=== PATIENT | female | born 1950 | race Caucasian/White ===

== ENCOUNTER → 2016-10-12 | Outpatient (CLI) | payer BC ==
[2016-10-12 10:18] LABS: Basophils % (A) 1 %; CH 32.3; CHCM 33.7; Eosinophils # (A) 0.2 k/uL (0-0.7); Eosinophils % (A) 3 %; HCT 38.6 % (34.0-46.0); HDW 2.46; HGB 12.6 gm/dL (11.4-16.0); Luc # (Auto) 0.11; Luc % (Auto) 2; Lymphocytes # (A) 1.5 k/uL (1.0-4.8); Lymphocytes % (A) 29 %; MCH 31.4 pg (25.0-35.0); MCHC 32.6 g/dL (31.0-37.0); MCV 96.2 fL (80.0-100.0); Monocytes # (A) 0.2 k/uL (0-1.0); Monocytes % (A) 4 %; Neutrophils # (A) 3.2 k/uL (1.3-7.7); Neutrophils % (A) 61 %; RBC 4.01 m/uL (3.80-5.40); RDW 12.6 % (11.5-15.5); WBC 5.3 k/uL (3.8-10.6); WBC (Perox) 5.54
[2016-10-12 11:36] LABS: ALT 32 U/L (9-52); AST 31 U/L (14-36); Alkaline Phosphatase 75 U/L (38-126); Anion Gap 9 mmol/L; Blood Urea Nitrogen 12 mg/dL (7-17); Calcium 9.1 mg/dL (8.4-10.2); Carbon Dioxide 23 mmol/L (22-30); Chloride 111 mmol/L (98-107); Cholesterol 156 mg/dL (<200); Creatine Kinase 51 U/L (30-135); Glucose 99 mg/dL (74-99); HDL Cholesterol 61 mg/dL (40-60); Magnesium 1.9 mg/dL (1.6-2.3); Non-African American GFR(MDRD) >60 (>60 ml/min/1.73 sqM); Potassium 4.1 mmol/L (3.5-5.1); Sodium 143 mmol/L (137-145); Total Bilirubin 0.6 mg/dL (0.2-1.3); Total Protein 6.4 g/dL (6.3-8.2); Triglycerides 140 mg/dL (<150)
[2016-10-12 12:23] LABS: Vitamin B12 982 pg/mL (239-931)
== END | disposition home or self-care (01) ==
LOC: LABWHC1 09:47
PROVIDERS: ATTEND Family Medicine
DX: E78.5 Hyperlipidemia, unspecified (principal); M54.30 Sciatica, unspecified side; J01.00 Acute maxillary sinusitis, unspecified; J45.991 Cough variant asthma; M79.7 Fibromyalgia; R73.02 Impaired glucose tolerance (oral)
CPT/HCPCS: 36415; 80053; 80061; 82306; 82550; 82607; 83036; 83735; 84439; 84443; 85025

== ENCOUNTER → 2016-10-18 | Outpatient (CLI) | payer BC ==
--- NOTE | 2016-10-18 12:27 | XR ---
EXAMINATION TYPE: XR ankle complete RT DATE OF EXAM: 10/18/2016 12:23 PM COMPARISON: NONE HISTORY: Pain TECHNIQUE: Frontal, lateral and oblique images of the right ankle are obtained. COMPARISON: None. FINDINGS: There is no acute fracture/dislocation evident. The joint spaces appear within normal heck its. The overlying soft tissue appears unremarkable. Large plantar calcaneal spur with small dorsal calcaneal spur identified. IMPRESSION: There is no acute fracture or dislocation seen.
== END | disposition home or self-care (01) ==
LOC: RADXRMAIN 12:06
PROVIDERS: ATTEND Family Medicine
DX: M76.61 Achilles tendinitis, right leg (principal)

== ENCOUNTER → 2016-10-25 | Outpatient (CLI) | payer BC ==
--- NOTE | 2016-10-25 15:06 | BD ---
EXAMINATION TYPE: MG DEXA axial skeleton. DATE OF EXAM: 10/25/2016 7:20 AM COMPARISON: NONE CLINICAL HISTORY: Height: 66.5 IN Weight: 213 LBS FRAX RISK QUESTIONS: Alcohol (3 or more units per day): NO Family History (Parent hip fracture): NO Glucocorticoids (More than 3mos): NO (Ex: prednisone, prednisolone, methylprednisolone, dexamethasone, and hydrocortisone). History of Fracture in Adulthood: YES RT HUMERUS Secondary Osteoporosis: 1. Type 1 Diabetes: NO 2. Hyperthyroidism: NO 3. Menopause before 45: NO 4. Malnutrition: NO 5. Chronic liver disease: NO Rheumatoid Arthritis: NO Current Tobacco Use: NO RISK FACTORS HISTORY OF: Surgery to Spine: YES L-SPINE When: 2009 Other Fractures since Age 52: YES RT HUMERUS When: AGE 62 Family History of Osteoporosis: MOTHER Active: YES Diet low in dairy products/other sources of calcium: YES Postmenopausal woman: AGE 52 Take estrogen and/or progesterone medications: NOT NOW How long: TOOK ESTROGEN FOR 5 YRS AGE 61 MEDICATIONS: Additional Medications: VIT D3, IRON, DONEPEZIL, ALPRAZOLAM, SIMVASTATIN, SERTRALINE, ATENOLOL, CLOPI DOGREL, B12, TIZANIDINE, VENTOLIN INHALER, NASAL ALLERGY SPRAY, MONTELUKAST, DICYCLOMINE, CEFUROXIME, VIBERZI EXAM MEASUREMENTS: Bone mineral densitometry was performed using the [employer] System. PT HAD L-SPINE SURGERY IN 2009. Bone mineral density about the R hip (g/cm2): 0.855 Bone mineral density about the L hip (g/cm2): 0.903 T Score values are as follows: -----R Neck: -1.3 -----L Neck: -1.0 -----R Total: -1.1 -----L Total: -0.6 Bone mineral density has: Decreased -6.4% since study of: 02/12/2014 IMPRESSION: Osteopenia is an interval finding NOTE: T-SCORE=SD OF THE YOUNG ADULT MEAN.
--- NOTE | 2016-10-26 10:31 | MM ---
Reason for exam: screening (asymptomatic). Last mammogram was performed 2 years and 8 months ago. History: Patient is postmenopausal and is nulliparous. Took estrogen for 5 years. Physical Findings: A clinical breast exam by your physician is recommended on an annual basis and results should be correlated with mammographic findings. MG Screening Mammo w CAD Bilateral CC and MLO view(s) were taken. Prior study comparison: February 12, 2014, bilateral MG screening mammo w CAD. January 08, 2013, bilateral digital screening mammo w/CAD. There are scattered fibroglandular densities. Finding: There are typically benign calcifications in both breasts. There is a chronic nodularity in the right breast. No significant changes in finding since February 12, 2014 and January 08, 2013. ASSESSMENT: Benign, BI-RAD 2 RECOMMENDATION: Routine screening mammogram of both breasts in 1 year.
== END | disposition home or self-care (01) ==
LOC: RADMAMWWP 07:17
PROVIDERS: ATTEND Family Medicine
DX: Z12.31 Encounter for screening mammogram for malignant neoplasm of breast (principal); M85.80 Other specified disorders of bone density and structure, unspecified site; Z78.0 Asymptomatic menopausal state
CPT/HCPCS: 77080; G0202

== ENCOUNTER → 2017-02-28 | Outpatient (CLI) | payer BC ==
[2017-02-28 11:36] LABS: Blood Urea Nitrogen 14 mg/dL (7-17); Non-African American GFR(MDRD) >60 (>60 ml/min/1.73 sqM)
--- NOTE | 2017-02-28 16:36 | MR ---
EXAMINATION TYPE: MR lumbar spine wo/w con DATE OF EXAM: 02/28/2017 COMPARISON: 05/06/2014 HISTORY: spinal stenosis CONTRAST: 9.5 mL intravenous Gadavist. TECHNIQUE: Multiplanar, multisequence images of the lumbar spine were acquired. FINDINGS: Cord terminates at the L1 level. L5-S1: Minimal residual disc bulge is present with anterior thecal sac contact. Laminectomy has been performed. No AP spinal canal stenosis present. Facet hypertrophy is present. There is moderate bilat eral foraminal narrowing with some exiting nerve root contact within the foramen. L4-L5: There is a grade 1 spondylolisthesis of L4 anterior and L5. Disc uncovering is present. Endpla te spurring from L5 is present. There is a spinal canal stenosis estimated 0.8 cm. Marked facet hyper trophy is present with some posterior lateral thecal sac compression. There is severe right and moder ate left foraminal stenosis. L3-L4: Broad-based disc bulge has mild anterior thecal sac flattening. Facet hypertrophy is posterior lateral thecal sac compression. No AP spinal canal stenosis present. Mild bilateral foraminal narrow ing is present, left greater than right. L2-L3: Mild disc bulge is present. This also has a focal left paracentral subligamentous disc herniat ion extending superiorly. This has moderate anterior thecal sac compression. No AP spinal canal steno sis. Mild facet hypertrophy is present. L1-L2: Mild disc bulge is present. Left paracentral disc herniation is present. No spinal cord contac t is evident. No AP spinal canal stenosis. Foramina are patent No spinal canal stenosis. No foramin al stenosis. Neural foramen are patent.. T12-L1: No significant disc bulge or disc herniation. No spinal canal stenosis. No foraminal stenos is. Neural foramen are patent.. No abnormal enhancement. IMPRESSION: 1. Spinal canal stenosis L4-5 secondary to disc uncovering with endplate spurring and facet hypertrop hy. 2. Slight anterior spondylolisthesis of L4 anterior and L5 compatible with a grade 1. 3. Multilevel facet hypertrophy causing posterior lateral thecal sac compression discussed above. 4. Left paracentral subligamentous disc herniation L2-L3 and L1-L2.
== END | disposition home or self-care (01) ==
LOC: RADMRIMAIN 10:44
PROVIDERS: ATTEND Family Medicine
DX: M48.06 Spinal stenosis, lumbar region (principal); M51.26 Other intervertebral disc displacement, lumbar region; M43.16 Spondylolisthesis, lumbar region; M48.00 Spinal stenosis, site unspecified
CPT/HCPCS: 82565; 84520; 72158; 36415; A9581

== ENCOUNTER → 2017-04-11 | Outpatient (CLI) | payer BC ==
[2017-04-11 12:56] LABS: Basophils % (A) 1 %; CH 31.7; CHCM 32.9; Eosinophils # (A) 0.3 k/uL (0-0.7); Eosinophils % (A) 4 %; HDW 2.38; HGB 13.5 gm/dL (11.4-16.0); Luc # (Auto) 0.09; Luc % (Auto) 1; Lymphocytes # (A) 2.1 k/uL (1.0-4.8); Lymphocytes % (A) 33 %; MCH 31.2 pg (25.0-35.0); MCHC 32.3 g/dL (31.0-37.0); MCV 96.7 fL (80.0-100.0); Monocytes # (A) 0.4 k/uL (0-1.0); Monocytes % (A) 6 %; Neutrophils # (A) 3.5 k/uL (1.3-7.7); Neutrophils % (A) 54 %; RBC 4.34 m/uL (3.80-5.40); RDW 13.7 % (11.5-15.5); WBC 6.4 k/uL (3.8-10.6); WBC (Perox) 6.68
[2017-04-11 13:19] LABS: ALT 41 U/L (9-52); AST 37 U/L (14-36); Alkaline Phosphatase 85 U/L (38-126); Anion Gap 7 mmol/L; Blood Urea Nitrogen 15 mg/dL (7-17); Calcium 9.4 mg/dL (8.4-10.2); Carbon Dioxide 28 mmol/L (22-30); Chloride 107 mmol/L (98-107); Cholesterol 169 mg/dL (<200); Glucose 92 mg/dL (74-99); HDL Cholesterol 58 mg/dL (40-60); Non-African American GFR(MDRD) >60 (>60 ml/min/1.73 sqM); Potassium 4.2 mmol/L (3.5-5.1); Sodium 142 mmol/L (137-145); Total Bilirubin 0.6 mg/dL (0.2-1.3); Total Protein 6.8 g/dL (6.3-8.2); Uric Acid 5.9 mg/dL (3.7-7.4)
== END | disposition home or self-care (01) ==
LOC: LABWHC1 12:22
PROVIDERS: ATTEND Family Medicine
DX: E55.9 Vitamin D deficiency, unspecified (principal); K58.0 Irritable bowel syndrome with diarrhea; M76.61 Achilles tendinitis, right leg
CPT/HCPCS: 36415; 80053; 80061; 82306; 83036; 84439; 84443; 84550; 85025

== ENCOUNTER → 2017-05-02 | Outpatient (CLI) | payer BC ==
[2017-05-02 08:57] LABS: Blood Urea Nitrogen 16 mg/dL (7-17); Non-African American GFR(MDRD) >60 (>60 ml/min/1.73 sqM)
== END | disposition home or self-care (01) ==
LOC: LABWHC1 08:11
PROVIDERS: ATTEND Family Medicine
DX: S06.0X0S Concussion without loss of consciousness, sequela (principal)
CPT/HCPCS: 36415; 82565; 84520

== ENCOUNTER → 2017-05-04 | Outpatient (CLI) | payer BC | LOC: RADMRIMAIN 06:41 | PROVIDERS: ATTEND Family Medicine | DX: Z53.9 Procedure and treatment not carried out, unspecified reason (principal) ==

== ENCOUNTER → 2017-05-25 | Outpatient (CLI) | payer BC ==
--- NOTE | 2017-05-25 13:26 | MR ---
EXAMINATION TYPE: MR angio head wo con DATE OF EXAM: 05/25/2017 COMPARISON: MRI 05/04/2017 HISTORY: Basilar Tip Aneuryms TECHNIQUE: Utilizing 3-D [id number] intracranial MRA of the [place] was performed. FINDINGS: The vertebrobasilar and carotid systems are patent. There is noticeable fusiform prominence of the b asilar tip measuring 5 mm. The origin of the right posterior cerebral artery originates from the internal circulation and there is a 3 mm nodular prominence at its origin suspicious for an additional small aneurysm. IMPRESSION: 1. 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 2. The right posterior cerebral artery originates from the anterior circulation and there is an area of nodular prominence also suspicious for a 3 mm aneurysm.
== END | disposition home or self-care (01) ==
LOC: RADMRIMAIN 12:45
PROVIDERS: ATTEND Otolaryngology
DX: R93.0 Abnormal findings on diagnostic imaging of skull and head, not elsewhere classified (principal)
CPT/HCPCS: 70544

== ENCOUNTER 2017-08-02 08:43 | Day surgery (SDC) | payer BC ==
[2017-07-31 15:36] VITALS: BMI 34.4
[~2017-08-02 08:43] MED LIST: LACTATED RINGERS 1,000 ML IV SCH
[2017-08-02] MEDS ORDERED: LACTATED RINGERS 1,000 ML IV ONE (09:38)
[2017-08-02] MEDS ORDERED: LIDOCAINE 1% 20 ML VIAL (10MG/ML) FOR IV START INTRADERMA ONE (09:38)
[2017-08-02 09:46] VITALS: TEMP 98
--- NOTE | 2017-08-02 10:26 | P.PCN ---
Date of Procedure: 08/02/17 Preoperative Diagnosis: Lumbar spondylosis without myelopathy Postoperative Diagnosis: Lumbar spondylosis without myelopathy Procedure(s) Performed: Lumbar bilateral medial branch block for the medial branches L2, L3, L4, and L5 dorsal ramus Anesthesia: MAC (Lidocaine 1% with IV moderate sedation with Versed) Surgeon: Joy Vaughan Pathology: none sent Condition: stable Disposition: PACU Description of Procedure: the patient was seen and identified in the preop holding area , risks and benefits and possible complications of the procedure and alternatives were discussed with the patient, and the patient agreed to proceed with the procedure and signed the consent. IV was started and vital signs monitored during the procedure and fluoroscopy was used to maximize the benefit and accuracy of the needle placement, sedation was given to decrease patient anxiety, patient was taken to the procedure room and placed in prone position vital signs monitored. The patient was brought into the procedure room and placed in prone position. Skin was prepped with Chloraprep and draped in a sterile manner. Lidocaine 1 % was used to numb the skin up at the target points that were chosen as follows : at the L5-S1 level which corresponds to the dorsal ramus of L5 the target points were at the superior medial aspect of the sacral ala on each side of the spine on the AP view of fluoroscopy, and for theL2, L3 and L4 medial branches the target points were the connection between the transverse process and the superior to go process of L3, L4 and L5 respectively on the oblique views of fluoroscopy. I used 22-gauge 3-1/2 inch Quincke spinal needles for this procedure and after contacting bone at the target points mentioned above I injected 1 mL of a mixture of Kenalog 40 mg +5 MLS of Marcaine 0.5% PF . Patient tolerated procedure well. At the end of the procedure the needles removed and a bandage applied after the skin was cleaned the cleaning solution. patient was then taken to the recovery room in stable condition and monitored in the recovery room for 20-30 minutes and discharged home in stable condition after discharge criteria met .
[2017-08-02] MEDS ORDERED: IV FLUID CONTINUATION 1,000 ML IV ONE ×2 (10:40)
[2017-08-02 11:00] VITALS: BP 126/72; PULSE 57; RESP 18
--- NOTE | 2017-08-02 11:02 | FL ---
EXAMINATION TYPE: FL guided pain mgmt statistic DATE OF EXAM: 08/02/2017 COMPARISON: NONE HISTORY: Back pain TECHNIQUE: Fluoroscopy. FINDINGS/IMPRESSION: Fluoroscopic guidance was provided during procedure performed by Dr. Vaughan. A total of 9 seconds of fluoroscopic time was utilized during the procedure and 2 spot images was acq uired demonstrating localization at multiple lumbar vertebral levels.
== END 2017-08-02 11:09 | disposition home or self-care (01) ==
LOC: ORPAIN 08:43
PROVIDERS: ATTEND Anesthesiology
DX: G89.4 Chronic pain syndrome (principal); M47.816 Spondylosis without myelopathy or radiculopathy, lumbar region; M48.061 Spinal stenosis, lumbar region without neurogenic claudication; M99.53 Intervertebral disc stenosis of neural canal of lumbar region; M96.1 Postlaminectomy syndrome, not elsewhere classified; K58.0 Irritable bowel syndrome with diarrhea; E78.5 Hyperlipidemia, unspecified; Z95.5 Presence of coronary angioplasty implant and graft; Q24.8 Other specified congenital malformations of heart; F32.9 Major depressive disorder, single episode, unspecified; Z79.899 Other long term (current) drug therapy; Z79.02 Long term (current) use of antithrombotics/antiplatelets; Z88.6 Allergy status to analgesic agent; Z91.041 Radiographic dye allergy status; Z88.8 Allergy status to other drugs, medicaments and biological substances; Z91.09 Other allergy status, other than to drugs and biological substances
CPT/HCPCS: 99152

== ENCOUNTER 2017-08-21 11:46 | Day surgery (SDC) | payer BC ==
[2017-08-11 15:52] VITALS: BMI 34.4
[~2017-08-21 11:46] MED LIST changes: -LACTATED RINGERS 1,000 ML IV SCH; +SODIUM CHLORIDE 0.9% 1,000 ML IV SCH
[2017-08-21 12:47] VITALS: BP 136/68; PULSE 61; RESP 16; TEMP 98.1
[2017-08-21 13:30] LABS: Appearance,Urine Clear (Clear); Bacteria,Urine Moderate /hpf; Bilirubin,Urine Negative (Negative); Blood,Urine Trace (Negative); Color,Urine Yellow; Glucose,Urine (UA) Negative (Negative); Ketones,Urine Negative (Negative); Leukocyte Esterase,Urine Large (Negative); Mucus,Urine Rare /hpf; Nitrite,Urine Positive (Negative); Protein,Urine Trace (Negative); RBC,Urine 3 /hpf (0-5); Specific Gravity,Urine 1.013 (1.001-1.035); Squamous Epithelial Cell,Urine <1 /hpf (0-4); Urobilinogen,Urine <2.0 mg/dL (<2.0); WBC,Urine 54 /hpf (0-5)
[2017-08-21 13:35] LABS: ALT 29 U/L (9-52); AST 28 U/L (14-36); Albumin 4.1 g/dL (3.5-5.0); Alkaline Phosphatase 82 U/L (38-126); Anion Gap 11 mmol/L; Blood Urea Nitrogen 13 mg/dL (7-17); Calcium 9.3 mg/dL (8.4-10.2); Carbon Dioxide 25 mmol/L (22-30); Chloride 106 mmol/L (98-107); Glucose 85 mg/dL (74-99); Potassium 4.1 mmol/L (3.5-5.1); Sodium 142 mmol/L (137-145); Total Bilirubin 0.4 mg/dL (0.2-1.3); Total Protein 6.7 g/dL (6.3-8.2)
[2017-08-21 13:42] LABS: Basophils % (A) 0 %; Eosinophils # (A) 0.2 k/uL (0-0.7); Eosinophils % (A) 3 %; HCT 40.7 % (34.0-46.0); HGB 13.8 gm/dL (11.4-16.0); Lymphocytes # (A) 2.5 k/uL (1.0-4.8); Lymphocytes % (A) 29 %; MCH 32.1 pg (25.0-35.0); MCHC 33.9 g/dL (31.0-37.0); MCV 94.4 fL (80.0-100.0); Mean Platelet Volume 7.2; Monocytes # (A) 0.5 k/uL (0-1.0); Monocytes % (A) 5 %; Neutrophils # (A) 5.4 k/uL (1.3-7.7); Neutrophils % (A) 62 %; Platelet Count 236 k/uL (150-450); RBC 4.31 m/uL (3.80-5.40); RDW 12.5 % (11.5-15.5); WBC 8.8 k/uL (3.8-10.6)
[2017-08-21 13:51] LABS: T4, Free (Free Thyroxine) 1.63 ng/dL (0.78-2.19)
--- NOTE | 2017-08-21 16:49 | P.PCN ---
Preoperative Diagnosis: Twelve-lead ECG Sinus mechanism normal OK narrow QRS early repolarization abnormality in the inferior high lateral leads QT interval 460 ms Tilt table test Baseline blood pressure 114/58 mmHg Baseline heart rate 68 beats a minute Patient was tilted upright at an angle of 70 per protocol there was no sputum change in her heart and blood pressure. No syncope was noted No evidence for neurocardiogenic syncope or dysautonomia Impression No evidence for neurocardiogenic syncope or dysautonomia
[2017-08-21 20:43] LABS: Vitamin D 25 Hydroxy 28.1 ng/mL (30.0-100.0)
[2017-08-21 21:18] LABS: Parathyroid Hormone Intact 62.3 pg/mL (14.0-72.0)
[2017-08-21 21:59] LABS: Hemoglobin A1C 4.9 % (4.0-6.0)
== END 2017-08-21 14:50 | disposition home or self-care (01) ==
LOC: CATHEP 11:46
PROVIDERS: ATTEND Internal Medicine Clinical Cardiac Electrophysiology
DX: R55 Syncope and collapse (principal)
CPT/HCPCS: 80053; 81001; 82306; 82607; 83036; 83735; 83970; 84439; 84443; 84550; 85025; 87077; 87086; 87186; 93005; 93660

== ENCOUNTER 2017-09-04 09:09 | Day surgery (SDC) | payer BC ==
[2017-08-30 11:47] VITALS: BMI 33.3
[~2017-09-04 09:09] MED LIST changes: +LACTATED RINGERS 1,000 ML IV SCH; -SODIUM CHLORIDE 0.9% 1,000 ML IV SCH
[2017-09-04 10:21] VITALS: TEMP 98.1
[2017-09-04] MEDS ORDERED: LIDOCAINE 1% 20 ML VIAL (10MG/ML) FOR IV START INTRADERMA ONE (10:35)
--- NOTE | 2017-09-04 11:21 | P.PCN ---
Date of Procedure: 09/04/17 Procedure(s) Performed: PREOPERATIVE DIAGNOSIS : 1- Lumbar spondylosis with Facet Arthropathy without myelopathy . 2- Lumber postlaminectomy pain syndrome. 3-lumbar spinal stenosis POSTOPERATIVE DIAGNOSIS: same as preoperative diagnosis PROCEDURE: Diagnostic bilateral L3 -4 , L4 -5 , and L5-S1 medial branch block under fluoroscopy ANESTHESIA: Local with 1% lidocaine 6 ml , moderate sedation with intravenous Versed 4 mg . EBL: Minimal COMPLICATION: None. IV FLUIDS: 100 mL of normal saline. PROCEDURE INDICATION: Chronic low back pain secondary to Facet arthropathy unresponsive to conservative treatment. PROCEDURE DESCRIPTION: the patient was seen and identified in the preop holding area , risks and benefits and possible complications of the procedure and alternative were discussed with the patient, and the patient agreed to proceed with the procedure and signed the consent IV was started and vital signs monitored during the procedure and fluoroscopy was used to maximize the benefit and accuracy of the needle placement, and sedation was given to decrease patient anxiety, patient was taken to the procedure room and placed in prone position vital signs monitored in the back prepped with chlorhexidine X3 then under strict sterile technique using a right oblique fluoroscopy ,the junction of the transverse process and the superior articulating process of the right L3- 4 , L4- 5, and L5-S1 vertebra which corresponding to the fluoroscopy image of the eye of the Real dog on the block side for the medial branches and subsequently , after local infiltration of skin and subcu tissuies with lidocaine 1% one mL at each level ,then 22- gauge Quincke-type needles , 3 needle was used , each one of them placed at the junction of the base of the transverse process and the superior articular process at the appropriate level, and the needle was advanced until the periosteum contacted, needle placement confirmed with AP oblique and lateral view and after appropriate needle placement confirmed, and after negative aspiration for heme and CSF and there was no paresthesia 1-1/2 mL of Marcaine 0.5% used , then half mL injected at each level after negative aspiration the needle subsequently removed and the same procedure repeated for the left side at left side at L3-4, L4- 5 and L5-S1 levels. At the end of the procedure and the needles removed and a bandage applied after the skin was cleaned the cleaning solution patient taken to recovery room in stable condition and monitors in the recovery room for 20-30 minutes and discharged home in stable condition after discharge criteria met and patient will follow up with the pain clinic in 2-4 weeks no steroid was used for the procedure.
[2017-09-04] MEDS ORDERED: IV FLUID CONTINUATION 600 ML IV ONE (11:30)
--- NOTE | 2017-09-04 11:46 | FL ---
EXAMINATION TYPE: FL guided pain mgmt statistic DATE OF EXAM: 09/04/2017 COMPARISON: NONE HISTORY: Back pain TECHNIQUE: Fluoroscopy. FINDINGS/IMPRESSION: Fluoroscopic guidance was provided during procedure performed by Dr. Bermeo. A total of 12 seconds of fluoroscopic time was utilized during the procedure and 4 spot images was a cquired demonstrating localization at multiple lumbar vertebral levels.
[2017-09-04 11:53] VITALS: RESP 18
[2017-09-04 12:09] VITALS: BP 109/66; PULSE 61
== END 2017-09-04 12:34 | disposition home or self-care (01) ==
LOC: ORPAIN 09:09
PROVIDERS: ATTEND Specialist
DX: G89.29 Other chronic pain (principal); M47.816 Spondylosis without myelopathy or radiculopathy, lumbar region; M96.1 Postlaminectomy syndrome, not elsewhere classified; M48.061 Spinal stenosis, lumbar region without neurogenic claudication; Z79.02 Long term (current) use of antithrombotics/antiplatelets; I25.10 Atherosclerotic heart disease of native coronary artery without angina pectoris; Z88.6 Allergy status to analgesic agent; Z91.048 Other nonmedicinal substance allergy status; Z88.5 Allergy status to narcotic agent; Z88.8 Allergy status to other drugs, medicaments and biological substances; Z91.041 Radiographic dye allergy status
CPT/HCPCS: 64493; 64494; 64495; J2250; 99152

== ENCOUNTER → 2017-10-11 | Outpatient (CLI) | payer BC ==
[2017-10-11 15:02] VITALS: BP 128/69; PULSE 64; RESP 18
--- NOTE | 2017-10-11 15:58 | P.PAINPG ---
Subjective Progress Note Date: 10/11/17 This is follow-up visit for this patient with a history of severe and chronic low back pain secondary to , lumbar spondylosis with facet arthropathy, We have done interventional pain procedures diagnostic medial branch block lumbar area on 2 different occasions She is here today to discuss the results of the diagnostic medial branch block, patient reported that her pain before the first block was 6/10 decreased to 0/10 after the block And the pain relief lasted for a few weeks, and after the second block the pain dropped from 6/10-0/10 for a few days Patient denies any motor or sensory deficit , patient denies any fever or night sweats, denies any change in the bowel movements or urination Physical Examinations : 1-Constitutiona : Cooperative , not in acute distress . 2-HEENT : nech ; supple , no Lymphadenopathy , no Thyromegaly , normal thyroid size . eyes : no ptosis , no icterus, no photophobia . ENT : normal of hearing , normal oropharynx , no Thrush . 3- Respiratory : Chest clear to auscultations Bilaterally , no wheezing , no Rhonchi . 4- Cardiovascular : regular rate and rhythem , S1 , S2 , no S3 , no S4. 5- Gastrointestinal : abdomen soft no tenderness , bowel sounds positive all four quadrents , no organomegally . 6- Genitourinary : Defferred . 7- neurologic : Cranial nerve II to XII intact , no focal neurological deffecit . 8-psychatric : alert , oriented X 3 , appropriate affect , intact judgment and insight . 9-Lymphatic : no Lymphadenopathy . 10- musculoskeltal : exams of the Lumber spine =motor strength lower extremities ,thigh and legs .5/5 Positive facet loading test lumbar area bilaterally Severe tenderness over the sacroiliac joint on the right side Assessment and plan = Chronic low back pain , lumbar spondylosis with facet arthropathy without myelopathy , right sacroiliitis Patient had a good result after the diagnostic medial branch block 2 , she will be good candidate to have radiofrequency ablation of the medial branch lumbar area She will be scheduled to have the right side first L3-4/L4 5/L5-S1 Objective - Vital Signs Vital signs: Vital Signs Temp Pulse 64 10/11/17 14:55 Resp 18 10/11/17 14:55 BP 128/69 10/11/17 14:55 Pulse Ox 98 10/11/17 14:55 Intake & Output 10/10/17 10/11/17 10/11/17 18:59 06:59 18:59 Weight 97.522 kg PQRS Measure Charge Sheet Measure #130: Documentation of Current Meds in Medical Chart: Patient's medications documented in chart Measure #226: Tobacco Use: Screen & Cessation Intervention: Pt not a tobacco user Measure #111: Pneumonia Vaccination: Pneumococcal vaccine NOT administered or previously given Measure #47: Advance Care Plan: Advance care planning discussed & documented, pt chose/unable to give Measure #412: Opioid Treatment Agreement: No documentation of signed opioid treatment agreement Measure #408: Opioid Therapy Follow-up Evaluation: Patient had NO f/u eval minimum every 3 months during opioid therapy Measure #317: Preventitive Care & Scrn High Bld Press & F/U: Normal blood pressure, f/u not required Measure #128: Body Mass Index (BMI) Screening & Follow-up: BMI documented ABOVE normal parameters - f/u documented Measure #131: Pain Assessment & Follow-up: Pain positive & plan documented Measure #431: Unhealthy Alcohol Use Preventative Care & Scrn: Patient not identified as an unhealthy alcohol user PQRS Narrative: Smoking Status Never smoker Do You Want the Pneumonia No Vaccine AT THIS TIME? Blood Pressure 128/69 Pain Intensity [Lower Back] 5 Hx Alcohol Use (MH) No Home Medications: Ambulatory Orders Artificial Tears-Hypromellose [Genteal Eye Drops] 1 drop BOTH EYES BID PRN 11/07 Atenolol 25 mg PO QAM 11/07/14 Butalb/Acetaminophen/Caffeine [Fioricet 50-325-40] 1 - 2 tab PO Q4H PRN Clopidogrel [Plavix] 75 mg PO HS 11/07/14 Donepezil HCl [Aricept ODT] 10 mg PO BID 11/07/14 Simvastatin [Zocor] 20 mg PO HS 11/07/14 EPINEPHrine (Auto Inject) [Epipen] 0.3 mg IM ONCE PRN 01/25/16 Sertraline HCl [Zoloft] 75 mg PO HS 01/25/16 tiZANidine [Zanaflex] 2 mg PO DAILY 01/25/16 Cyanocobalamin [Vitamin B-12] 500 mcg PO DAILY 02/09/16 Albuterol Sulfate [Proventil Hfa] 90 mcg INHALATION Q4-6H PRN 07/05/17 Ferrous Sulfate [Iron] 325 mg PO DAILY 07/05/17 Amitriptyline HCl [Elavil] 75 mg PO HS 07/31/17 Glycopyrrolate/Formoterol Fum [Bevespi Aerosphere Inhaler] 2 puff INHALATION BID 08/30/17 tiZANidine [Zanaflex] 4 mg PO HS 08/30/17 Nitroglycerin Sl Tabs [Nitrostat] 0.4 mg SUBLINGUAL Q5M PRN 09/04/17 Controlled Substance Measures - Controlled Substance Measures Is patient prescribed a controlled substance at discharge?: No If prescribed controlled substance>3 days was MAPS reviewed?: No When asked, does pt state using other controlled substances?: No
== END | disposition home or self-care (01) ==
LOC: PNWHC3 14:23
PROVIDERS: ATTEND Specialist
DX: G89.29 Other chronic pain (principal); M54.5 Low back pain; M47.816 Spondylosis without myelopathy or radiculopathy, lumbar region; M46.96 Unspecified inflammatory spondylopathy, lumbar region; M46.1 Sacroiliitis, not elsewhere classified
CPT/HCPCS: 99211

== ENCOUNTER 2017-10-24 07:02 | Day surgery (SDC) | payer BC ==
[2017-10-23 09:06] VITALS: BMI 32.8
[2017-10-24 08:28] VITALS: TEMP 98.6
--- NOTE | 2017-10-24 09:36 | P.PCN ---
Date of Procedure: 10/24/17 Procedure(s) Performed: OPERATION: Radiofrequency ablation of the medial branch lumbar area at right side L3-4, L4-5 and L5-S1 levels under fluoroscopic guidance. PREOPERATIVE DIAGNOSES: 1-Lumbar spondylosis with facet arthropathy without myelopathy. 2-right sacroiliitis POSTOPERATIVE DIAGNOSES: Same as pre op Diagnoses COMPLICATIONS: None. ANESTHESIA: Moderate sedation with Versed 2 mg with local infiltration lidocaine 1% 6 mL CONDITION: Stable. FLUOROSCOPY TIME: [] seconds. INDICATION FOR THE PROCEDURE: This is 66-year-old [female ] with a history of low back pain. Patient diagnosed with lumbar spondylosis For this reason, patient was a good candidate for radiofrequency ablation of the medial branch. Procedure, risks and benefits discussed with the patient who agreed with proceeding. Patient taken to the operating room, placed in prone position. All standard monitors applied to the patient. Then after induction of anesthesia, back prepped with Betadine 3 times. Then under fluoroscopic guidance we used 1% lidocaine 3 mL for skin and subcutaneous tissue infiltrations, approximately 2 mL at each level. Then after that, 18-gauge radiofrequency active-tip needles, 4 needles used, each one of them placed at the junction of the base of the transverse process and the superior articulating process of the right side L3-4 , L4-5 and L5-S1 levels. Needle placement confirmed with AP and oblique and lateral views. Then after appropriate needle placement confirmed, we checked for the motor stimulation at 2.5 v, which was positive for localized contractions in the lumbar area and there were no contractions in the lower extremities. Then after that, we checked for the sensory stimulation, which was positive at all levels at less than 0.5 v. Then after that, the radiofrequency done at 80 degrees Centigrade for 90 seconds at each level. Then before the needles taken out, 0.5% Marcaine 6 mL and 40 mg of Kenalog mixed together and 1 mL injected at each level after negative aspiration. Patient tolerated the procedure well without any complication and will follow up with the pain clinic in few weeks.
[2017-10-24] MEDS ORDERED: IV FLUID CONTINUATION 475 ML IV ONE (09:39)
--- NOTE | 2017-10-24 09:52 | FL ---
Fluoroscopy HISTORY: Pain 7 seconds fluoroscopy time supplied to the referring clinician. 3 intraoperative C-arm images docume nt the procedure. See dictated report from anesthesia.
[2017-10-24 10:34] VITALS: BP 118/68; PULSE 56; RESP 18
== END 2017-10-24 10:35 | disposition home or self-care (01) ==
LOC: ORPAIN 07:02
PROVIDERS: ATTEND Specialist
DX: M47.816 Spondylosis without myelopathy or radiculopathy, lumbar region (principal); M46.1 Sacroiliitis, not elsewhere classified; I25.10 Atherosclerotic heart disease of native coronary artery without angina pectoris; Z78.0 Asymptomatic menopausal state; Z79.02 Long term (current) use of antithrombotics/antiplatelets; Z88.5 Allergy status to narcotic agent; Z88.8 Allergy status to other drugs, medicaments and biological substances; Z88.6 Allergy status to analgesic agent; Z91.041 Radiographic dye allergy status
CPT/HCPCS: 64635; 64636; J2250; J3301; 99152

== ENCOUNTER → 2017-11-28 | Outpatient (CLI) | payer BC ==
[2017-11-28 15:17] VITALS: BP 112/53; PULSE 66; RESP 18
--- NOTE | 2017-11-28 16:06 | P.PN ---
Progress Note - Text Progress Note Date: 11/28/17 This is a follow-up visit for this 66 use of [place] with a chronic history of severe low back pain, diagnosed with lumbar spondylosis, we've done diagnostic medial branch block which was successful and later on we did the radiofrequency ablation of the medial branch lumbar area on the right side at L3/L4 5/L5-S1, she reported that her pain is completely improved and she is currently having only minimal to no pain most of the time, she denies any motor or sensory deficit, for this reason patient will follow up with the pain clinic when necessary, and if she had pain in the future we can schedule her to radiofrequency ablation of the medial branch lumbar area on the left side at L3 4 L4 5 and L5-S1
== END | disposition home or self-care (01) ==
LOC: PNWHC3 14:01
PROVIDERS: ATTEND Specialist
DX: G89.29 Other chronic pain (principal); M47.816 Spondylosis without myelopathy or radiculopathy, lumbar region
CPT/HCPCS: 99211

== ENCOUNTER → 2018-01-30 | Outpatient (CLI) | payer BC ==
--- NOTE | 2018-02-01 09:08 | MM ---
Reason for exam: screening (asymptomatic). Last mammogram was performed 1 year and 3 months ago. History: Patient is postmenopausal and is nulliparous. Took estrogen for 5 years. Physical Findings: A clinical breast exam by your physician is recommended on an annual basis and results should be correlated with mammographic findings. MG Screening Mammo w CAD Bilateral CC and MLO view(s) were taken. Prior study comparison: October 25, 2016, bilateral MG screening mammo w CAD. February 12, 2014, bilateral MG screening mammo w CAD. There are scattered fibroglandular densities. No significant changes when compared with prior studies. ASSESSMENT: Benign, BI-RAD 2 RECOMMENDATION: Routine screening mammogram of both breasts in 1 year.
== END | disposition home or self-care (01) ==
LOC: RADMAMWWP 12:31
PROVIDERS: ATTEND Family Medicine
DX: Z12.31 Encounter for screening mammogram for malignant neoplasm of breast (principal)
CPT/HCPCS: 77067

== ENCOUNTER 2018-04-22 19:33 | Emergency (ER) | payer BC ==
[2018-04-22 19:39] VITALS: TEMP 98.9
--- NOTE | 2018-04-22 19:42 | ED ---
General Adult HPI - General Source: patient Mode of arrival: ambulatory Limitations: no limitations <Haley Gutierrez - Last Filed: 04/22/18 23:45> <Kira Bravo - Last Filed: 04/23/18 02:19> - General Chief complaint: Neck Pain/Injury Stated complaint: Neck pain Time Seen by Provider: 04/22/18 19:41 - History of Present Illness Initial comments: 67yo female with PMH of congenital heart fistula, chronic back pain "from neck to low back", hx of mm spasms presenting today for cc of right sided neck spasm. Pt states that she has had tightness in her right side of her neck/ shoulder for "quite some time now" she has been during physical therapy of her neck and back for spasms and chronic pain for the past 5 weeks, she states that the massage therapist that she sees regularly also noted some right sided neck tension and a "knot" in her shoulder/upper right back a few weeks ago. Pt states that she woke up this morning with pain in the right upper shoulder/back that increased with rotation of the neck to the left. Pt denies any chest pain, jaw pain, shortness of breath, dyspnea upon exertion, dizziness. Pt states that the area is very tender to touch as well. Pt does take muscle relaxants at home but only at night as prescribed by her neurologist Dr. Boswell. Pt denies taking any muscle relaxants this evening/today. Pt mentioned she has taken "pain medications in the past" but not currently. She stated she thinks that is what she might need to control the pain. Pt denies fever, chills, night sweats, photophobia, headache, mm weakness, difficulty walking or any other associated symptoms. Pt denies any recent trauma injury or falls. Upon arrival pt is well appearing, VS within acceptable limits. (Haley Gutierrez) - Related Data Home Medications Medication Instructions Recorded Confirmed Atenolol 25 mg PO QAM 11/07/14 04/22/18 Butalb/Acetaminophen/Caffeine 1 - 2 tab PO Q4H PRN 11/07/14 04/22/18 [Fioricet 50-325-40] Clopidogrel [Plavix] 75 mg PO HS 11/07/14 04/22/18 Simvastatin [Zocor] 20 mg PO HS 11/07/14 04/22/18 Sertraline HCl [Zoloft] 75 mg PO HS 01/25/16 04/22/18 tiZANidine [Zanaflex] 6 mg PO HS 01/25/16 04/22/18 Cyanocobalamin [Vitamin B-12] 500 mcg PO DAILY 02/09/16 04/22/18 Ferrous Sulfate [Iron] 325 mg PO DAILY 07/05/17 04/22/18 Amitriptyline HCl [Elavil] 75 mg PO HS 07/31/17 04/22/18 Glycopyrrolate/Formoterol Fum 2 puff INHALATION BID 08/30/17 04/22/18 [Bevespi Aerosphere Inhaler] Nitroglycerin Sl Tabs [Nitrostat] 0.4 mg SUBLINGUAL Q5M PRN 09/04/17 04/22/18 Diphenoxylate HCl/Atropine 1 tab PO BID PRN 04/22/18 04/22/18 [Lomotil 2.5-0.025 mg Tablet] Allergies Allergy/AdvReac Type Severity Reaction Status Date / Time Iodinated Contrast- Oral and Allergy Unknown Swelling Verified 04/22/18 20:08 IV Dye [Iodinated Contrast Media - IV Dye] yellow dye Allergy Unknown Swelling Verified 04/22/18 20:08 aspirin Allergy Swelling Verified 04/22/18 20:08 prochlorperazine edisylate Allergy RASH/HIVES, Verified 04/22/18 20:08 [From Compazine] ITCHING, AGITATED prochlorperazine maleate Allergy Rash/Hives, Verified 04/22/18 20:08 [From Compazine] ITCHING , AGITATED fentanyl AdvReac Nausea & Verified 04/22/18 20:08 Vomiting hydrocodone bitartrate AdvReac NIGHTMARES Verified 04/22/18 20:08 [From Vicodin] MUG WART Allergy Severe Swelling Uncoded 10/24/17 08:11 Review of Systems ROS Other: All systems not noted in ROS Statement are negative. Constitutional: Denies: fever, chills, night sweats ENT: Denies: ear pain, throat pain, dental pain Respiratory: Denies: dyspnea, wheezes, hemoptysis, stridor Cardiovascular: Denies: chest pain, palpitations, dyspnea on exertion Gastrointestinal: Denies: abdominal pain, nausea, vomiting, diarrhea, constipation, hematemesis, melena, hematochezia Genitourinary: Denies: urgency, dysuria Musculoskeletal: Reports: back pain (right upper back) Skin: Denies: rash Neurological: Denies: headache, weakness, numbness, paresthesias, confusion, abnormal gait <Haley Gutierrez - Last Filed: 04/22/18 23:45> ROS Other: All systems not noted in ROS Statement are negative. <Kira Bravo - Last Filed: 04/23/18 02:19> ROS Statement: Those systems with pertinent positive or pertinent negative responses have been documented in the HPI. Past Medical History Past Medical History: Hyperlipidemia, Musculoskeletal Disorder Additional Past Medical History / Comment(s): CONGENITAL HEART "FISTULA". BACK PAIN. History of Any Multi-Drug Resistant Organisms: None Reported Past Surgical History: Back Surgery, Cholecystectomy, Heart Catheterization, Heart Catheterization With Stent, Orthopedic Surgery, Uterine Ablation Additional Past Surgical History / Comment(s): LEFT CATARACT. Heart fistula repair WITH STENT. LUMBAR SURGERY. LAPROSCOPY SANTOS. ORIF RIGHT HUMERUS. PAIN PROCEDURES Past Anesthesia/Blood Transfusion Reactions: Motion Sickness Date of Last Stent Placement:: UNKNOWN Past Psychological History: Depression Smoking Status: Never smoker Past Alcohol Use History: None Reported Past Drug Use History: None Reported - Past Family History Mother History Unknown: Yes <Haley Gutierrez - Last Filed: 04/22/18 23:45> General Exam Limitations: no limitations <Haley Gutierrez - Last Filed: 04/22/18 23:45> <Kira Bravo P - Last Filed: 04/23/18 02:19> - General Exam Comments Initial Comments: General: The patient is awake and alert, in no distress, and does not appear acutely ill. Eye: Pupils are equal, round and reactive to light, extra-ocular movements are intact. No nystagmus. There is normal conjunctiva bilaterally. No signs of icterus. Ears, nose, mouth and throat: There are moist mucous membranes and no oral lesions. Oropharynx is nonerythematous, there is no tonsillar enlargement or lesions. Uvula midline. TM membranes within normal limits bilaterally,. Neck: The neck is supple, there is no tenderness or JVD. Cardiovascular: There is a regular rate and rhythm. No murmur, rub or gallop is appreciated. Respiratory: Mild rhonchi upon auscultation, respirations are non-labored, breath sounds are equal. No wheezes, stridor, rales. Gastrointestinal: Soft, non-distended, non-tender abdomen without masses or organomegaly noted. There is no rebound or guarding present. No CVA tenderness. Bowel sounds are unremarkable. Musculoskeletal: Upon examination of the back, shoulder b/l there are no obvious deformities, defect, lesions/masses or rashses. Pt is tender to palpation over the right side of the trapezius muscle. There is noted muscle tension, no spasm palpable. Pt has limited range of motion with roation to the left of the neck secondary to pain. Pt is able to range fully to the right, flex and extend at c-spine, no midline tenderness to palpation of the c-spine. Normal ROM, no tenderness of the shoulder b/l. Strength 5/5 of the UE equally b /l. Sensation intact of the UE equally b/l there is no badge parathesias. Radial pulses equal bilaterally 2+. She is able to make the okay, fingers crossed, thumbs-up and for extend at the wrist bilaterally. The ulnar median and radial nerves are intact. Neurological: A&O x 3. CN II-XII intact, There are no obvious motor or sensory deficits. Coordination appears grossly intact. Speech is normal. Skin: Skin is warm and dry and no rashes or lesions are noted. Psychiatric: Cooperative, appropriate mood & affect, normal judgment. (Haley Gutierrez) Course <Haley Gutierrez - Last Filed: 04/22/18 23:45> <Kira Bravo P - Last Filed: 04/23/18 02:19> Vital Signs 04/22/18 04/22/18 04/22/18 19:35 20:25 21:28 Temperature 98.9 F Pulse Rate 84 78 75 Respiratory 20 18 18 Rate Blood Pressure 131/79 147/74 148/67 O2 Sat by Pulse 98 100 99 Oximetry 04/22/18 04/22/18 04/22/18 22:19 22:29 22:50 Temperature 98.9 F Pulse Rate 91 92 93 Respiratory 18 18 18 Rate Blood Pressure 132/63 O2 Sat by Pulse 95 Oximetry - Reevaluation(s) Reevaluation #1: Pt states that her pain is back to baseline, pt states she has more range of motion of her neck. She stated pain 99% relieved from initial complaints. 04/22/18 22:16 (Haley Gutierrez) EKG Findings - EKG Comments: EKG Findings:: A 12-lead EKG was performed and shows the following: Rate is 78bpm, and rhythm is normal sinus. There are normal QRS complexes and normal R- wave progression. ST segments have no elevation or depression, and IA segments appear normal. Nonspecific T wave. <Haley Gutierrez - Last Filed: 04/22/18 23:45> Medical Decision Making <Haley Gutierrez - Last Filed: 04/22/18 23:45> <Kira Bravo - Last Filed: 04/23/18 02:19> - Medical Decision Making 67yo with reproducible right sided trapezius pain, increased with neck rotation to the left. Pt has significant history of neck/back spasms follows neurology. States out of muscle relaxants, no home pain medications. Pt given morphine, valium, then 1g dilaudid after reevalulation pt stated pain 99% resolved, "back to baseline". Pt stated she was diagnosed with viral bronchitis and was inquiring about cough, denied fever, chills, body aches, sore throat, shortness of breath, productive sputum or any other associated symptoms. CXR (-). PE revealed rhonchi, at this time I feel symptoms correlate with viral bronchitis. Pt has inhaler at home, educated pt on symptomatic care. Pt nonsmoker. Pt given starter pack for flexeril, given instruction on use. Pt verbalized understanding of risks and use. Pt is to f/u with neurologist and primary care provider. Pt is agreeable with plan. Pt discharged in stable condition. Pt did not appear uncomfortable walking out of ER, smiling/chatting with . no signs of distress/pain. Case discussed with Dr. Bravo in detail prior to d/c, agreed with impression/plan. (Haley Gutierrez) I was available for consultation in the emergency department. The history and physical exam were done by the midlevel provider. I was consulted for this patient's care. I reviewed the case with the midlevel provider and based on their presentation of the patient, I agree with the assessment, medical decision making and plan of care as documented. (Kira Bravo) Disposition Is patient prescribed a controlled substance at d/c from ED?: No Time of Disposition: 22:56 <Haley Gutierrez - Last Filed: 04/22/18 23:45> <Kira Bravo - Last Filed: 04/23/18 02:19> Clinical Impression: Muscle spasm, Cough Disposition: HOME SELF-CARE Condition: Good Instructions: Muscle Spasm (ED) Additional Instructions: Please use home medication as discussed. Please follow-up with family doctor in the next 2 days with your neurologist Dr. Boswell as well as primary care provider Dr. Andrews. Please return to emergency room if the symptoms increase or worsen or for any other concerns. Referrals: Liz Andrews MD [Primary Care Provider] - 1-2 days Kamaljit Boswell DO [STAFF PHYSICIAN] - 1-2 days
[2018-04-22] MEDS ORDERED: MORPHINE SULFATE 2 MG/ML SYRINGE IVP STA (19:54)
[2018-04-22] MEDS ORDERED: DIAZEPAM 5 MG/ML 2 ML INJ IVP STA (19:54)
[2018-04-22 20:28] VITALS: RESP 18
[2018-04-22] MEDS ORDERED: HYDROmorphone 1 MG/ML 1 ML SYRINGE IVP STA (21:15)
[2018-04-22] MEDS ORDERED: IPRATROPIUM-ALBUTEROL 3 ML NEB INHALATION STA (22:14)
[2018-04-22] MEDS ORDERED: AMOXIC-POT CLAV 400-57MG/5ML 50 ML BOTTLE PO STA (22:29)
--- NOTE | 2018-04-22 22:50 | XR ---
EXAMINATION TYPE: XR chest 2V DATE OF EXAM: 04/22/2018 COMPARISON: 03/17/2016 HISTORY: Neck pain TECHNIQUE: Frontal and lateral views of the chest are obtained. FINDINGS: There is no heart failure nor confluent pneumonic infiltrate. Costophrenic angles are bee r. The bony thorax is intact. Pulmonary vascularity is normal. There is previous cardiac surgery note d. IMPRESSION: No active cardiopulmonary disease. Normal heart. No change.
[2018-04-22 22:51] VITALS: BP 132/63; PULSE 93
[2018-04-22] MEDS ORDERED: AMOXIC-POT CLAV 250-62.5MG/5ML 75 ML BOTTLE PO STA (22:52)
[2018-04-22] MEDS ORDERED: CYCLOBENZAPRINE 10MG STARTER 3 TAB BTL PO STA (23:08)
== END 2018-04-22 23:27 | disposition home or self-care (01) ==
LOC: EC 19:33
DX: M62.838 Other muscle spasm (principal); R05 Cough; E78.5 Hyperlipidemia, unspecified; F32.9 Major depressive disorder, single episode, unspecified; Z79.01 Long term (current) use of anticoagulants; Z79.899 Other long term (current) drug therapy; Z91.041 Radiographic dye allergy status; Z88.6 Allergy status to analgesic agent; Z88.5 Allergy status to narcotic agent; Z88.8 Allergy status to other drugs, medicaments and biological substances; Z91.09 Other allergy status, other than to drugs and biological substances; Z95.5 Presence of coronary angioplasty implant and graft
CPT/HCPCS: 94640; 93005; 71046; 99284; 96374; 96375 ×2; J3360; J2270; J1170

== ENCOUNTER → 2018-07-31 | Outpatient (CLI) | payer BC ==
[2018-07-31 07:41] LABS: Basophils # (A) 0.1 k/uL (0-0.2); Basophils % (A) 1 %; Eosinophils # (A) 0.2 k/uL (0-0.7); Eosinophils % (A) 2 %; HCT 39.6 % (34.0-46.0); HGB 13.2 gm/dL (11.4-16.0); Lymphocytes # (A) 2.9 k/uL (1.0-4.8); Lymphocytes % (A) 29 %; MCH 31.3 pg (25.0-35.0); MCHC 33.4 g/dL (31.0-37.0); MCV 93.8 fL (80.0-100.0); Mean Platelet Volume 6.6; Monocytes # (A) 0.4 k/uL (0-1.0); Monocytes % (A) 4 %; Neutrophils # (A) 6.4 k/uL (1.3-7.7); Neutrophils % (A) 63 %; Platelet Count 367 k/uL (150-450); RBC 4.23 m/uL (3.80-5.40); RDW 13.2 % (11.5-15.5)
[2018-07-31 08:06] LABS: Appearance,Urine Turbid (Clear); Bacteria,Urine Many /hpf; Bilirubin,Urine Negative (Negative); Blood,Urine Moderate (Negative); Color,Urine Yellow; Glucose,Urine (UA) Negative (Negative); Hyaline Casts,Urine 16 /lpf (0-2); Ketones,Urine Negative (Negative); Leukocyte Esterase,Urine Large (Negative); Mucus,Urine Many /hpf; Nitrite,Urine Positive (Negative); PH, Urine 5.5 (5.0-8.0); Protein,Urine 1+ (Negative); RBC,Urine 28 /hpf (0-5); Specific Gravity,Urine 1.013 (1.001-1.035); Squamous Epithelial Cell,Urine 10 /hpf (0-4); Urobilinogen,Urine <2.0 mg/dL (<2.0); WBC,Urine >182 /hpf (0-5)
[2018-07-31 11:56] LABS: Vitamin D 25 Hydroxy 27.7 ng/mL (30.0-100.0)
[2018-07-31 12:25] LABS: Albumin 4.2 g/dL (3.80-4.90); Globulin 2.1 g/dL (1.6-3.3); LDL Cholesterol,Calculated 51.8 mg/dL (0.0-131.0); Potassium 4.3 mmol/L (3.5-5.5); Total Bilirubin 0.3 mg/dL (0.3-1.2); Total Protein 6.3 g/dL (6.2-8.2); VLDL Calculation 47.2 mg/dL (5.00-40.00)
[2018-07-31 13:47] LABS: Hemoglobin A1C 5.5 % (4.0-6.0)
== END ==
LOC: LABWHC1 07:06
PROVIDERS: ATTEND Family Medicine
DX: Z00.00 Encounter for general adult medical examination without abnormal findings (principal); I35.1 Nonrheumatic aortic (valve) insufficiency; E78.5 Hyperlipidemia, unspecified; R73.02 Impaired glucose tolerance (oral)
CPT/HCPCS: 36415; 80053; 80061; 81001; 82306; 82607; 83036; 84443; 85025

== ENCOUNTER → 2018-08-21 | Outpatient (CLI) | payer BC ==
--- NOTE | 2018-08-21 13:54 | MR ---
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 The left posterior cerebral ar linda and superior cerebellar arteries originate from the basilar tip as does a branch vessel cerebral artery. The right posterior cerebral artery originates from the middle cerebral artery (anterior cir culation) again there is a 3 mm prominence at its origin. There is a left posterior communicating art victoria and therefore the [place] of [place] appears intact. Major intracranial flow voids are maintained. No dissection or occlusion. Vertebral arteries are codominant. IMPRESSION: 1. 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 3. Unchanged 3 mm prominence at the origin of the right posterior cerebral artery (normal variant fet al origin). This may represent a prominent infundibulum or small aneurysm.
== END ==
LOC: RADMRIMAIN 12:30
PROVIDERS: ATTEND Family Medicine
DX: I67.1 Cerebral aneurysm, nonruptured (principal)
CPT/HCPCS: 70544

== ENCOUNTER → 2018-12-03 | Outpatient (CLI) | payer BC ==
--- NOTE | 2018-12-03 19:11 | CT ---
EXAMINATION TYPE: CT chest wo con DATE OF EXAM: 12/03/2018 COMPARISON: 02/09/2016 HISTORY: Cough x4 weeks. CT DLP: 706 mGycm. Automated Exposure Control for Dose Reduction was Utilized. TECHNIQUE: CT scan of the thorax is performed without IV contrast. FINDINGS: LUNGS: The lungs are grossly clear, there is no concerning parenchymal mass or nodule identified. T here is no pleural effusion or pneumothorax seen. The tracheobronchial tree is patent. Mild central bronchiectasis linear changes involving both upper lobes are suggestive of scar or atelectasis. MEDIASTINUM: Lack of IV contrast is noted to limit evaluation for mediastinal and especially hilar ad enopathy. There are no definitive greater than 1 cm hilar or mediastinal lymph nodes. Suggestion of p revious cardiac surgery correlate clinically. Metallic artifact noted. There is coronary artery calci fication. OTHER: No additional significant abnormality is seen. Accessory spleen incidentally noted. Hypertrop hic changes of vertebral column. Calcification is incidentally noted within the left kidney. Hypodens ity extending exophytically off the kidneys indeterminate by noncontrast CT but likely related to sim ple cyst. IMPRESSION: 1. No acute infiltrate. Linear changes involving the lungs are most typical scar or atelectasis. No e vidence of chronic interstitial lung disease or fibrosis. 2. Basilar mild bronchiectasis 3. left renal calcification fully partially included on exam
== END | disposition home or self-care (01) ==
LOC: RADCTMAIN 16:11
PROVIDERS: ATTEND Family Medicine
DX: J47.9 Bronchiectasis, uncomplicated (principal)
CPT/HCPCS: 71250

== ENCOUNTER 2018-12-20 15:26 | Inpatient (IN) | payer MEDICARE, BC ==
[2018-12-20] MEDS ORDERED: SODIUM CHLORIDE 0.9% 1,000 ML IV STA (16:14)
--- NOTE | 2018-12-20 16:30 | ED ---
General Adult HPI - General Chief complaint: Dizziness Stated complaint: nausea, pain all over Time Seen by Provider: 12/20/18 16:13 Source: patient Mode of arrival: ambulatory Limitations: no limitations - History of Present Illness Initial comments: Dictation was produced using [employer] dictation software. please excuse any grammatical, word or spelling errors. Chief Complaint: 67-year-old female presents with chief complaint of dental eyes body aches, cramping and dizziness. History of Present Illness: 87-year-old female she presents today with multiple complaints. Patient's primary complaint today is myalgias. Patient states she's been having these symptoms since Monday. Patient states she was seen by her primary care physician prior to that. She did have a CT of the chest at that time. Patient does not know why she had CT imaging performed at that time. Patient is history of diverticulitis. Cold days ago she had an episode of left-sided abdominal pain with changes in bowel habits. States that she had left lower quadrant pain with diarrhea. Patient states that the laceration diverticulitis with several years ago. She claims of myalgias and pain to all of her joints. Patient states she was bit by a tick recently at around 4 crash it. She does report having a ringlike rash around the tick bite however it resolved. Patient denies any cough. Denies any nausea or vomiting. Denies any dysuria. Patient states that her abdominal pain is more improved today. Patient reports having chronic back pain that is unchanged recently. She is ambulatory without difficulty. The ROS documented in this emergency department record has been reviewed and confirmed by me. Those systems with pertinent positive or negative responses have been documented in the HPI. All other systems are other negative and/or noncontributory. PHYSICAL EXAM: General Impression: Alert and oriented x3, not in acute distress HEENT: Normocephalic atraumatic, extra-ocular movements intact, pupils equal and reactive to light bilaterally, mucous membranes moist. Cardiovascular: Heart regular rate and rhythm, S1&S2 audible, no murmurs, rubs or gallops Chest: Lungs clear to auscultation bilaterally, no rhonchi, no wheeze, no rales Abdomen: Bowel sounds present, abdomen soft, non-tender, non-distended, no organomegaly Musculoskeletal: Pulses present and equal in all extremities, no peripheral edema Motor: no focal deficits noted Neurological: CN II-XII grossly intact, no focal motor or sensory deficits noted Skin: Intact with no visualized rashes Psych: Normal affect and mood ED course: 67yo female presents with myalgias, episode of abdominal pain and arthritic pain. Signs upon arrival shows temperature 101.3, heart rate of 102, 93% on room air. Her blood pressure 95/64. At this point patient has multiple vague symptoms. She doesn't have any one specific localizing symptoms to suggest source of fever.Laboratory evaluation obtained. Mild leukocytosis of 11.7, coag panel unremarkable. Metabolic panel is unremarkable. Urinalysis shows findings consistent with urinary tract infection. Computed tomography scan of the abdomen and pelvis was obtained for left flank pain and fever. Patient has left-sided hydronephrosis with perinephric edema consistent with obstruction due to large calculus at the UPJ. There is concerns of pyelonephritis given findings on CT and degree of white blood cells in the urine. Discussed patient case with Dr. Martínez. Was willing set patient's care. Pending discussion with neurology. . EKG interpretation: Ventricular rate 81, normal sinus rhythm,. Interval 124, QRS 84, QTc 446. No MD prolongation, no QTC prolongation, no ST or T-wave changes noted. EKG compared to 04/22/2018 showing no changes. Overall, this EKG is unremarkable - Related Data Home Medications Medication Instructions Recorded Confirmed Atenolol 12.5 mg PO DAILY 11/07/14 12/20/18 Butalb/Acetaminophen/Caffeine 1 - 2 tab PO Q4H PRN 11/07/14 12/20/18 [Fioricet 50-325-40] Clopidogrel [Plavix] 75 mg PO HS 11/07/14 12/20/18 Simvastatin [Zocor] 20 mg PO HS 11/07/14 12/20/18 Sertraline HCl [Zoloft] 75 mg PO HS 01/25/16 12/20/18 Cyanocobalamin [Vitamin B-12] 500 mcg PO MOWEFR 02/09/16 12/20/18 Ferrous Sulfate [Iron] 325 mg PO DAILY 07/05/17 12/20/18 Nitroglycerin Sl Tabs [Nitrostat] 0.4 mg SUBLINGUAL Q5M PRN 09/04/17 12/20/18 Amitriptyline HCl [Elavil] 75 mg PO HS 12/20/18 12/20/18 Cholecalciferol (Vitamin D3) 2,000 unit PO MOWEFR 12/20/18 12/20/18 [Vitamin D3] EPINEPHrine [Epipen 2-Malik] 0.3 mg IM ONCE PRN 12/20/18 12/20/18 Montelukast [Singulair] 10 mg PO HS 12/20/18 12/20/18 Vitamin A(Unknown) 1 cap PO MOTUWETHFR 12/20/18 12/20/18 Allergies Allergy/AdvReac Type Severity Reaction Status Date / Time Iodinated Contrast- Oral and Allergy Unknown Swelling Verified 12/20/18 17:24 IV Dye [Iodinated Contrast Media - IV Dye] yellow dye Allergy Unknown Swelling Verified 12/20/18 17:24 aspirin Allergy Swelling Verified 12/20/18 17:24 prochlorperazine edisylate Allergy RASH/HIVES, Verified 12/20/18 17:24 [From Compazine] ITCHING, AGITATED prochlorperazine maleate Allergy Rash/Hives, Verified 12/20/18 17:24 [From Compazine] ITCHING , AGITATED fentanyl AdvReac Nausea & Verified 12/20/18 17:24 Vomiting hydrocodone bitartrate AdvReac NIGHTMARES Verified 12/20/18 17:24 [From Vicodin] MUG WART Allergy Severe Swelling Uncoded 10/24/17 08:11 Review of Systems ROS Statement: Those systems with pertinent positive or pertinent negative responses have been documented in the HPI. ROS Other: All systems not noted in ROS Statement are negative. Past Medical History Past Medical History: Hyperlipidemia, Musculoskeletal Disorder Additional Past Medical History / Comment(s): CONGENITAL HEART "FISTULA". BACK PAIN. History of Any Multi-Drug Resistant Organisms: None Reported Past Surgical History: Back Surgery, Cholecystectomy, Heart Catheterization, Heart Catheterization With Stent, Orthopedic Surgery, Uterine Ablation Additional Past Surgical History / Comment(s): LEFT CATARACT. Heart fistula repair WITH STENT. LUMBAR SURGERY. LAPROSCOPY SANTOS. ORIF RIGHT HUMERUS. PAIN PROCEDURES Past Anesthesia/Blood Transfusion Reactions: Motion Sickness Date of Last Stent Placement:: UNKNOWN Past Psychological History: Depression Smoking Status: Never smoker Past Alcohol Use History: None Reported Past Drug Use History: None Reported - Past Family History Mother History Unknown: Yes General Exam Limitations: no limitations Course Vital Signs 12/20/18 12/20/18 12/20/18 16:05 16:58 18:52 Temperature 101.3 F H 101.7 F H Pulse Rate 102 H 83 80 Respiratory 22 16 18 Rate Blood Pressure 95/64 112/50 103/59 O2 Sat by Pulse 93 L 99 97 Oximetry Medical Decision Making - Lab Data Result diagrams: 12/20/18 16:44 12/20/18 16:44 Lab Results 12/20/18 12/20/18 12/20/18 Range/Units 16:44 16:44 16:44 WBC 11.7 H (3.8-10.6) k/uL RBC 4.13 (3.80-5.40) m/uL Hgb 12.8 (11.4-16.0) gm/dL Hct 37.1 (34.0-46.0) % MCV 89.6 (80.0-100.0) fL MCH 30.9 (25.0-35.0) pg MCHC 34.5 (31.0-37.0) g/dL RDW 14.4 (11.5-15.5) % Plt Count 236 (150-450) k/uL Neutrophils % 83 % Lymphocytes % 9 % Monocytes % 6 % Eosinophils % 1 % Basophils % 0 % Neutrophils # 9.7 H (1.3-7.7) k/uL Lymphocytes # 1.0 (1.0-4.8) k/uL Monocytes # 0.7 (0-1.0) k/uL Eosinophils # 0.1 (0-0.7) k/uL Basophils # 0.0 (0-0.2) k/uL PT (9.0-12.0) sec INR (<1.2) Sodium 136 L (137-145) mmol/L Potassium 4.2 (3.5-5.1) mmol/L Chloride 102 (98-107) mmol/L Carbon Dioxide 23 (22-30) mmol/L Anion Gap 11 mmol/L BUN 20 H (7-17) mg/dL Creatinine 0.84 (0.52-1.04) mg/dL Est GFR (CKD-EPI)AfAm 84 (>60 ml/min/1.73 sqM) Est GFR (CKD-EPI)NonAf 73 (>60 ml/min/1.73 sqM) Glucose 106 H (74-99) mg/dL Plasma Lactic Acid Marshal 1.7 (0.7-2.0) mmol/L Calcium 9.2 (8.4-10.2) mg/dL Total Bilirubin 0.8 (0.2-1.3) mg/dL AST 47 H (14-36) U/L ALT 33 (9-52) U/L Alkaline Phosphatase 115 (38-126) U/L Total Protein 7.3 (6.3-8.2) g/dL Albumin 4.3 (3.5-5.0) g/dL Lipase 59 (23-300) U/L Urine Color Urine Appearance (Clear) Urine pH (5.0-8.0) Ur Specific Hay (1.001-1.035) Urine Protein (Negative) Urine Glucose (UA) (Negative) Urine Ketones (Negative) Urine Blood (Negative) Urine Nitrite (Negative) Urine Bilirubin (Negative) Urine Urobilinogen (<2.0) mg/dL Ur Leukocyte Esterase (Negative) Urine RBC (0-5) /hpf Urine WBC (0-5) /hpf Urine WBC Clumps (None) /hpf Ur Squamous Epith Cells (0-4) /hpf Urine Bacteria (None) /hpf Hyaline Casts (0-2) /lpf Urine Mucus (None) /hpf Urine Yeast (Budding) (None) /hpf 12/20/18 12/20/18 Range/Units 16:44 18:15 WBC (3.8-10.6) k/uL RBC (3.80-5.40) m/uL Hgb (11.4-16.0) gm/dL Hct (34.0-46.0) % MCV (80.0-100.0) fL MCH (25.0-35.0) pg MCHC (31.0-37.0) g/dL RDW (11.5-15.5) % Plt Count (150-450) k/uL Neutrophils % % Lymphocytes % % Monocytes % % Eosinophils % % Basophils % % Neutrophils # (1.3-7.7) k/uL Lymphocytes # (1.0-4.8) k/uL Monocytes # (0-1.0) k/uL Eosinophils # (0-0.7) k/uL Basophils # (0-0.2) k/uL PT 9.9 (9.0-12.0) sec INR 0.9 (<1.2) Sodium (137-145) mmol/L Potassium (3.5-5.1) mmol/L Chloride (98-107) mmol/L Carbon Dioxide (22-30) mmol/L Anion Gap mmol/L BUN (7-17) mg/dL Creatinine (0.52-1.04) mg/dL Est GFR (CKD-EPI)AfAm (>60 ml/min/1.73 sqM) Est GFR (CKD-EPI)NonAf (>60 ml/min/1.73 sqM) Glucose (74-99) mg/dL Plasma Lactic Acid Marshal (0.7-2.0) mmol/L Calcium (8.4-10.2) mg/dL Total Bilirubin (0.2-1.3) mg/dL AST (14-36) U/L ALT (9-52) U/L Alkaline Phosphatase (38-126) U/L Total Protein (6.3-8.2) g/dL Albumin (3.5-5.0) g/dL Lipase (23-300) U/L Urine Color Light Yellow Urine Appearance Cloudy H (Clear) Urine pH 6.0 (5.0-8.0) Ur Specific Hay 1.011 (1.001-1.035) Urine Protein Trace H (Negative) Urine Glucose (UA) Negative (Negative) Urine Ketones Trace H (Negative) Urine Blood Small H (Negative) Urine Nitrite Positive H (Negative) Urine Bilirubin Negative (Negative) Urine Urobilinogen <2.0 (<2.0) mg/dL Ur Leukocyte Esterase Large H (Negative) Urine RBC 6 H (0-5) /hpf Urine WBC >182 H (0-5) /hpf Urine WBC Clumps Few H (None) /hpf Ur Squamous Epith Cells <1 (0-4) /hpf Urine Bacteria Many H (None) /hpf Hyaline Casts 1 (0-2) /lpf Urine Mucus Rare H (None) /hpf Urine Yeast (Budding) Occasional H (None) /hpf Disposition Clinical Impression: Pyelonephritis Disposition: ADMITTED IP TO THIS HOSP Condition: Fair Referrals: Liz Andrews MD [Primary Care Provider] - 1-2 days Decision Time: 19:23
[2018-12-20 17:00] LABS: Basophils % (A) 0 %; Eosinophils # (A) 0.1 k/uL (0-0.7); Eosinophils % (A) 1 %; HCT 37.1 % (34.0-46.0); HGB 12.8 gm/dL (11.4-16.0); Lymphocytes % (A) 9 %; MCH 30.9 pg (25.0-35.0); MCHC 34.5 g/dL (31.0-37.0); MCV 89.6 fL (80.0-100.0); Mean Platelet Volume 7.2; Monocytes # (A) 0.7 k/uL (0-1.0); Monocytes % (A) 6 %; Neutrophils # (A) 9.7 k/uL (1.3-7.7); Neutrophils % (A) 83 %; Platelet Count 236 k/uL (150-450); RBC 4.13 m/uL (3.80-5.40); RDW 14.4 % (11.5-15.5); WBC 11.7 k/uL (3.8-10.6)
[2018-12-20] MEDS ORDERED: FAMOTIDINE 20 MG/2 ML VIAL IV STA (17:01)
[2018-12-20] MEDS ORDERED: diphenhydrAMINE 50 MG/ML 1 ML VIAL IVP STA (17:01)
[2018-12-20] MEDS ORDERED: methylPREDNISolone SOD SUCCI 125 MG/2 ML VIAL IV STA (17:01)
[2018-12-20 17:08] LABS: INR 0.9 (<1.2); Prothrombin Time 9.9 sec (9.0-12.0)
[2018-12-20 17:13] LABS: Albumin 4.3 g/dL (3.5-5.0); Calcium 9.2 mg/dL (8.4-10.2); Potassium 4.2 mmol/L (3.5-5.1); Total Bilirubin 0.8 mg/dL (0.2-1.3); Total Protein 7.3 g/dL (6.3-8.2)
--- NOTE | 2018-12-20 18:37 | CT ---
EXAMINATION TYPE: CT abdomen pelvis w con DATE OF EXAM: 12/20/2018 COMPARISON: 11/07/2014 HISTORY: Nausea and pelvic pain. CT DLP: 1033.4 mGycm Automated exposure control for dose reduction was used. TECHNIQUE: Helical acquisition of images was performed from the lung bases through the pelvis. CONTRAST: Performed without Oral Contrast and with IV Contrast, patient injected with 100 mL of Isovue M300. FINDINGS: Lung bases are clear of infiltrate. There is no pleural effusion. There is minimal scarring at the agus ng bases. There are surgical clips at the gastric fundus. Spleen and pancreas appear normal. Liver sh ows no focal defect. Bile ducts are not dilated. Gallbladder appears absent. There is no adrenal mass. There is 1.8 cm calculus at the left renal hilum. There is 2 mm calculus lo wer pole left kidney. There is mild left-sided hydronephrosis. There is no definite ureteral calculus . There is 1.5 cm cortical cyst lateral right kidney. There is left side mild perinephric edema. Bladder distends smoothly. There is no inguinal hernia. There is no free fluid in the pelvis. There i s no evidence of pelvic mass. There is no mesenteric edema. There is no ascites. There is 1 cm anteri or subluxation of L4 in relation to L5. There is right-sided L4 spondylolysis. There is no compressio n fracture. Bony pelvis appears intact. Appendix is not seen. There is no sign of appendicitis. There is no evidence of bowel obstruction. IMPRESSION: THERE IS LEFT-SIDED HYDRONEPHROSIS AND PERINEPHRIC EDEMA CONSISTENT WITH OBSTRUCTION DUE TO LARGE JOSE CULUS AT THE URETEROPELVIC JUNCTION. 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
[2018-12-20 18:40] LABS: Appearance,Urine Cloudy (Clear); Bacteria,Urine Many /hpf; Bilirubin,Urine Negative (Negative); Blood,Urine Small (Negative); Budding Yeast,Urine Occasional /hpf; Color,Urine Light Yellow; Glucose,Urine (UA) Negative (Negative); Hyaline Casts,Urine 1 /lpf (0-2); Ketones,Urine Trace (Negative); Leukocyte Esterase,Urine Large (Negative); Mucus,Urine Rare /hpf; Nitrite,Urine Positive (Negative); Protein,Urine Trace (Negative); RBC,Urine 6 /hpf (0-5); Specific Gravity,Urine 1.011 (1.001-1.035); Squamous Epithelial Cell,Urine <1 /hpf (0-4); Urobilinogen,Urine <2.0 mg/dL (<2.0); WBC,Urine >182 /hpf (0-5)
[2018-12-20] MEDS ORDERED: cefTRIAXone IN SWFI 1,000 MG/10 ML SYRINGE IVP STA ×2 (18:47→19:29)
[2018-12-20] MEDS ORDERED: ACETAMINOPHEN TAB 500 MG TAB PO STA (18:55)
[2018-12-20] MEDS ORDERED: MORPHINE SULFATE 4 MG/ML SYRINGE IV PRN (19:19)
[2018-12-20] MEDS ORDERED: NALOXONE 0.4 MG/ML 1 ML VIAL IV PRN (19:19)
[2018-12-20] MEDS ORDERED: ONDANSETRON 4 MG/2 ML VIAL IVP PRN (19:19)
[2018-12-20] MEDS ORDERED: oxyCODONE-APAP 5-325MG 1 EACH TAB PO PRN (19:19)
[2018-12-20] MEDS ORDERED: ACETAMINOPHEN TAB 325 MG TAB PO PRN (19:19)
--- NOTE | 2018-12-20 21:06 | P.GSCN ---
History of Present Illness Consult date: 12/20/18 Reason for Consult: Left renal calculus and pyelonephritis History of present illness: The patient is a 67-year-old female who developed some dizziness and a feeling that "something was not right" while at home earlier in the day. She denied any abdominal or flank pain. She said she was nauseated and had the dry heaves. She also had some diarrhea but says this is not unusual due to her IBS. She did not note any change in her normal urinary frequency, dysuria or hematuria. She presented to the emergency room where she was noted to have a fever. Her white blood count was 11,700. Lactic acid was 1.7. BUN/creatinine were 20/0.84. Urinalysis suggested a urinary tract infection with pyuria and was positive for nitrite. Computed tomography scan of the abdomen and pelvis without IV contrast identified a 20 x 13 mm calculus in the region of the left ureteral pelvic junction. There was a 1 x 3 mm calculus in the lower pole of the left kidney. There was some nonspecific perinephric stranding. There also appeared to be some dilation of the left ureter down to the region of the pelvic brim however a ureteral calculus was not identified along the course of the ureter. The patient was started on antibiotics due to probable left pyelonephritis and was admitted for further evaluation. The patient said that she believes she passed a kidney stone 6 or 7 years ago. She had a computed tomography scan of the abdomen in 11/2014 that identified a nonobstructive 6 x 5 mm left renal calculus. She says she's had intermittent left upper quadrant discomfort for several years and the cause of this has never been identified. She has had occasional urinary tract infections and believes that the last one occurred early in 2019. She has not experienced any gross hematuria. She says she usually voids every 2-5 hours during the day and has no nocturia and this pattern of voiding has not changed recently. Review of Systems - Constitutional Reports chills, Reports fatigue - Cardiovascular Denies chest pain, Denies shortness of breath - Respiratory Denies cough, Denies wheezing - Gastrointestinal Reports as per HPI - Genitourinary Genitourinary: Reports as per HPI Past Medical History Past Medical History: Hyperlipidemia, Musculoskeletal Disorder Additional Past Medical History / Comment(s): CONGENITAL HEART "FISTULA". BACK PAIN. History of Any Multi-Drug Resistant Organisms: None Reported Past Surgical History: Back Surgery, Cholecystectomy, Heart Catheterization, Heart Catheterization With Stent, Orthopedic Surgery, Uterine Ablation Additional Past Surgical History / Comment(s): LEFT CATARACT. Heart fistula repair and angioplasty with STENT. LUMBAR SURGERY. LAPROSCOPY SANTOS. ORIF RIGHT HUMERUS. PAIN PROCEDURES Past Anesthesia/Blood Transfusion Reactions: Motion Sickness Date of Last Stent Placement:: UNKNOWN Past Psychological History: Depression Smoking Status: Never smoker Past Alcohol Use History: None Reported Past Drug Use History: None Reported - Past Family History Mother History Unknown: Yes Medications and Allergies Home Medications Medication Instructions Recorded Confirmed Type Atenolol 12.5 mg PO DAILY 11/07/14 12/20/18 History Butalb/Acetaminophen/Caffeine 1 - 2 tab PO Q4H PRN 11/07/14 12/20/18 History [Fioricet 50-325-40] Clopidogrel [Plavix] 75 mg PO HS 11/07/14 12/20/18 History Simvastatin [Zocor] 20 mg PO HS 11/07/14 12/20/18 History Sertraline HCl [Zoloft] 75 mg PO HS 01/25/16 12/20/18 History Cyanocobalamin [Vitamin B-12] 500 mcg PO MOWEFR 02/09/16 12/20/18 History Ferrous Sulfate [Iron] 325 mg PO DAILY 07/05/17 12/20/18 History Nitroglycerin Sl Tabs [Nitrostat] 0.4 mg SUBLINGUAL Q5M PRN 09/04/17 12/20/18 History Amitriptyline HCl [Elavil] 75 mg PO HS 12/20/18 12/20/18 History Cholecalciferol (Vitamin D3) 2,000 unit PO MOWEFR 12/20/18 12/20/18 History [Vitamin D3] EPINEPHrine [Epipen 2-Malik] 0.3 mg IM ONCE PRN 12/20/18 12/20/18 History Montelukast [Singulair] 10 mg PO HS 12/20/18 12/20/18 History Vitamin A(Unknown) 1 cap PO MOTUWETHFR 12/20/18 12/20/18 History Allergies Allergy/AdvReac Type Severity Reaction Status Date / Time Iodinated Contrast- Oral and Allergy Unknown Swelling Verified 12/20/18 17:24 IV Dye [Iodinated Contrast Media - IV Dye] yellow dye Allergy Unknown Swelling Verified 12/20/18 17:24 aspirin Allergy Swelling Verified 12/20/18 17:24 prochlorperazine edisylate Allergy RASH/HIVES, Verified 12/20/18 17:24 [From Compazine] ITCHING, AGITATED prochlorperazine maleate Allergy Rash/Hives, Verified 12/20/18 17:24 [From Compazine] ITCHING , AGITATED fentanyl AdvReac Nausea & Verified 12/20/18 17:24 Vomiting hydrocodone bitartrate AdvReac NIGHTMARES Verified 12/20/18 17:24 [From Vicodin] MUG WART Allergy Severe Swelling Uncoded 10/24/17 08:11 Surgical - Exam Vital Signs Temp Pulse Resp BP Pulse Ox 101.3 F H 102 H 22 95/64 93 L 12/20/18 16:05 12/20/18 16:05 12/20/18 16:05 12/20/18 16:05 12/20/18 16:05 - General well developed, well nourished, no distress - ENT no hearing loss - Neck no masses, no lymphadectomy - Respiratory normal respiratory effort - Abdomen Abdomen: soft, non tender, no organomegaly Results - Labs 12/20/18 16:44 12/20/18 16:44 Abnormal Lab Results - Last 24 Hours (Table) 12/20/18 12/20/18 12/20/18 Range/Units 16:44 16:44 18:15 WBC 11.7 H (3.8-10.6) k/uL Neutrophils # 9.7 H (1.3-7.7) k/uL Sodium 136 L (137-145) mmol/L BUN 20 H (7-17) mg/dL Glucose 106 H (74-99) mg/dL AST 47 H (14-36) U/L Urine Appearance Cloudy H (Clear) Urine Protein Trace H (Negative) Urine Ketones Trace H (Negative) Urine Blood Small H (Negative) Urine Nitrite Positive H (Negative) Ur Leukocyte Esterase Large H (Negative) Urine RBC 6 H (0-5) /hpf Urine WBC >182 H (0-5) /hpf Urine WBC Clumps Few H (None) /hpf Urine Bacteria Many H (None) /hpf Urine Mucus Rare H (None) /hpf Urine Yeast (Budding) Occasional H (None) /hpf Diabetes panel 12/20/18 Range/Units 16:44 Sodium 136 L (137-145) mmol/L Potassium 4.2 (3.5-5.1) mmol/L Chloride 102 (98-107) mmol/L Carbon Dioxide 23 (22-30) mmol/L BUN 20 H (7-17) mg/dL Creatinine 0.84 (0.52-1.04) mg/dL Glucose 106 H (74-99) mg/dL Calcium 9.2 (8.4-10.2) mg/dL AST 47 H (14-36) U/L ALT 33 (9-52) U/L Alkaline Phosphatase 115 (38-126) U/L Total Protein 7.3 (6.3-8.2) g/dL Albumin 4.3 (3.5-5.0) g/dL Calcium panel 12/20/18 Range/Units 16:44 Calcium 9.2 (8.4-10.2) mg/dL Albumin 4.3 (3.5-5.0) g/dL Pituitary panel 12/20/18 Range/Units 16:44 Sodium 136 L (137-145) mmol/L Potassium 4.2 (3.5-5.1) mmol/L Chloride 102 (98-107) mmol/L Carbon Dioxide 23 (22-30) mmol/L BUN 20 H (7-17) mg/dL Creatinine 0.84 (0.52-1.04) mg/dL Glucose 106 H (74-99) mg/dL Calcium 9.2 (8.4-10.2) mg/dL Adrenal panel 12/20/18 Range/Units 16:44 Sodium 136 L (137-145) mmol/L Potassium 4.2 (3.5-5.1) mmol/L Chloride 102 (98-107) mmol/L Carbon Dioxide 23 (22-30) mmol/L BUN 20 H (7-17) mg/dL Creatinine 0.84 (0.52-1.04) mg/dL Glucose 106 H (74-99) mg/dL Calcium 9.2 (8.4-10.2) mg/dL Total Bilirubin 0.8 (0.2-1.3) mg/dL AST 47 H (14-36) U/L ALT 33 (9-52) U/L Alkaline Phosphatase 115 (38-126) U/L Total Protein 7.3 (6.3-8.2) g/dL Albumin 4.3 (3.5-5.0) g/dL Assessment and Plan (1) Pyelonephritis Narrative/Plan: The patient's fever, urinary tract infection and left perinephric stranding are consistent with left pyelonephritis however the patient actually has no left flank or left upper quadrant tenderness. She has a large left renal calculus which does not appear to be particularly obstructive. She has some dilation of the proximal and mid left ureter of uncertain significance as there is no jay ntifiable calculus in the pelvic ureter. The patient has had intermittent left upper quadrant pain previously which is most likely on the basis of intermittent obstruction at the ureteropelvic junction from the calculus. The patient has been started on antibiotics and clinically does not appear septic. If she improves with antibiotic treatment then placement of a double-J catheter will not be necessary emergently. Due to the size of the left renal calculus percutaneous nephrostolithotomy may be the best treatment option but this would need to be deferred for several weeks to allow resolution of her infection. Current Visit: Yes Status: Acute Code(s): N12 - TUBULO-INTERSTITIAL NEPHRITIS, NOT SPCF ACUTE OR CHRONIC SNOMED Code(s): 59337207
[2018-12-20] MEDS: ATORVASTATIN 10 MG TAB PO SCH (21:24)
[2018-12-20] MEDS: CLOPIDOGREL 75 MG TAB PO SCH (21:24)
[2018-12-20] MEDS: SODIUM CHLORIDE 0.9% 1,000 ML IV SCH (21:25)
[2018-12-20 22:09] VITALS: BMI 31.8
[2018-12-21] MEDS: SODIUM CHLORIDE 0.9% 1,000 ML IV SCH (05:47)
[2018-12-21] MEDS: PANTOPRAZOLE 40 MG TABLET PO SCH (06:55)
[2018-12-21] MEDS ORDERED: BUTALB/APAP/CAFF 50-325-40MG TAB PO PRN (12:19)
[2018-12-21] MEDS ORDERED: NITROGLYCERIN SL TABS 0.4 MG TAB SUBLINGUAL PRN (12:19)
[2018-12-21] MEDS ORDERED: CYANOCOBALAMIN 500 MCG TAB PO SCH (12:30)
[2018-12-21] MEDS: ATENOLOL 25 MG TAB PO SCH (12:51)
--- NOTE | 2018-12-21 14:09 | P.HPIM ---
History of Present Illness H&P Date: 12/21/18 Chief Complaint: Nausea, low back pain, fever chills This is a 67-year-old female patient of Dr. villavicencio with a past medical history of hyperlipidemia, migraine headaches, scoliosis and chronic back pain, kidney stones in 2011. Patient states for the past 2-3 days she has had nausea unable to eat any food, difficulty with balance. She also complains of pain in every joint, chronic low back pain, fever and chills yesterday, abdominal pain,. Patient came into the [facility] emergency center for evaluation. WBC 11.7, creatinine 0.84, lipase 59, AST 47. Urinalysis cloudy, nitrate positive, leukoesterase large, RBC 6, W BC greater than 182 with clumps and many bacteria. CAT scan of the abdomen and pelvis with contrast revealed left-sided hydronephrosis and perinephric edema consistent with obstruction due to large calculus at the ureteropelvic junction. Patient was given a dose of Rocephin in the emergency center and admitted to the medical floor. Urine culture and blood culture in progress. Patient has been seen by Dr. Presley with suspected intermittent obstruction of the ureteropelvic junction from calculus. His patient improves with antibiotic treatment, double-J catheter will not be necessary emergently. Due to size of the left renal calculus, percutaneous nephrolithotomy may be the best treatment option but this would need to be deferred for several weeks to allow resolution of her infection. Patient states that she had 2-3 episodes of diarrhea since breakfast. She does have history of irritable bowel syndrome. Review of Systems Constitutional: Reports chills, Reports fatigue, Reports fever, Reports poor appetite, Denies anorexia Ears, nose, mouth and throat: Reports vertigo, Denies dysphagia, Denies nasal congestion, Denies nasal discharge Cardiovascular: Denies decreased exercise tolerance, Denies dyspnea on exertion, Denies edema, Denies lightheadedness, Denies shortness of breath, Denies syncope Respiratory: Denies cough, Denies cough with sputum, Denies dyspnea, Denies excessive sputum, Denies hemoptysis, Denies home oxygen, Denies wheezing Gastrointestinal: Reports abdominal pain, Reports diarrhea, Reports loss of appetite, Reports nausea Musculoskeletal: Reports myalgias, Denies frequent falls, Denies gait dysfunction, Denies muscle weakness Integumentary: Denies pruritus, Denies rash, Denies wounds Neurological: Denies numbness, Denies weakness Psychiatric: Denies anxiety, Denies depression Past Medical History Past Medical History: Hyperlipidemia, Musculoskeletal Disorder Additional Past Medical History / Comment(s): CONGENITAL HEART "FISTULA". Chronic back pain, scoliosis, kidney stones. History of Any Multi-Drug Resistant Organisms: None Reported Past Surgical History: Back Surgery, Cholecystectomy, Heart Catheterization, Heart Catheterization With Stent, Orthopedic Surgery, Uterine Ablation Additional Past Surgical History / Comment(s): LEFT CATARACT. Heart fistula repair and angioplasty with STENT. LUMBAR SURGERY. LAPROSCOPY SANTOS. ORIF RIGHT HUMERUS. PAIN PROCEDURES Past Anesthesia/Blood Transfusion Reactions: Motion Sickness Date of Last Stent Placement:: UNKNOWN Past Psychological History: Depression Additional Psychological History / Comment(s): SOME SHORT TERM MEMORY LOSS. Smoking Status: Never smoker Past Alcohol Use History: None Reported Past Drug Use History: None Reported - Past Family History Mother History Unknown: Yes Additional Family Medical History / Comment(s): Mother has history of Parkinson's. Father Additional Family Medical History / Comment(s): Values history of diabetes and coronary artery disease. Patient has one sister that in her 60s from coronary artery disease and 1 sister with thyroid problems. Medications and Allergies Home Medications Medication Instructions Recorded Confirmed Type Atenolol 12.5 mg PO DAILY 11/07/14 12/20/18 History Butalb/Acetaminophen/Caffeine 1 - 2 tab PO Q4H PRN 11/07/14 12/20/18 History [Fioricet 50-325-40] Clopidogrel [Plavix] 75 mg PO HS 11/07/14 12/20/18 History Simvastatin [Zocor] 20 mg PO HS 11/07/14 12/20/18 History Sertraline HCl [Zoloft] 75 mg PO HS 01/25/16 12/20/18 History Cyanocobalamin [Vitamin B-12] 500 mcg PO MOWEFR 02/09/16 12/20/18 History Ferrous Sulfate [Iron] 325 mg PO DAILY 07/05/17 12/20/18 History Nitroglycerin Sl Tabs [Nitrostat] 0.4 mg SUBLINGUAL Q5M PRN 09/04/17 12/20/18 History Amitriptyline HCl [Elavil] 75 mg PO HS 12/20/18 12/20/18 History Cholecalciferol (Vitamin D3) 2,000 unit PO MOWEFR 12/20/18 12/20/18 History [Vitamin D3] EPINEPHrine [Epipen 2-Malik] 0.3 mg IM ONCE PRN 12/20/18 12/20/18 History Montelukast [Singulair] 10 mg PO HS 12/20/18 12/20/18 History Vitamin A(Unknown) 1 cap PO MOTUWETHFR 12/20/18 12/20/18 History Allergies Allergy/AdvReac Type Severity Reaction Status Date / Time Iodinated Contrast- Oral and Allergy Unknown Swelling Verified 12/20/18 17:24 IV Dye [Iodinated Contrast Media - IV Dye] yellow dye Allergy Unknown Swelling Verified 12/20/18 17:24 aspirin Allergy Swelling Verified 12/20/18 17:24 prochlorperazine edisylate Allergy RASH/HIVES, Verified 12/20/18 17:24 [From Compazine] ITCHING, AGITATED prochlorperazine maleate Allergy Rash/Hives, Verified 12/20/18 17:24 [From Compazine] ITCHING , AGITATED fentanyl AdvReac Nausea & Verified 12/20/18 17:24 Vomiting hydrocodone bitartrate AdvReac NIGHTMARES Verified 12/20/18 17:24 [From Vicodin] MUG WART Allergy Severe Swelling Uncoded 12/20/18 21:55 Physical Exam Vitals: Vital Signs Temp Pulse Pulse Resp BP BP Pulse Ox 12/21/18 11:16 98.4 F 76 16 106/64 94 L 12/21/18 08:12 98.5 F 70 16 113/75 95 12/21/18 04:30 98.0 F 72 18 103/56 95 12/20/18 22:00 97.7 F 69 18 126/65 95 12/20/18 21:26 99.3 F 71 18 107/73 97 12/20/18 19:39 101.1 F H 76 18 112/51 96 12/20/18 18:52 101.7 F H 80 18 103/59 97 12/20/18 16:58 83 16 112/50 99 12/20/18 16:05 101.3 F H 102 H 22 95/64 93 L Intake and Output 12/20/18 12/21/18 12/21/18 22:59 06:59 14:59 Output Total 850 Balance -850 Output: Urine 850 Other: Voiding Method Toilet # Voids 1 Weight 92.079 kg Gen: This is a 67-year-old obese female. She is resting in bed appears to be comfortable and in no acute distress. HEENT: Head is atraumatic, normocephalic. Pupils equal, round. Sclerae is anicteric. NECK: Supple. No JVD. No lymphadenopathy. No thyromegaly. LUNGS: Clear to auscultation. No wheezes or rhonchi. No intercostal retractions. HEART: Regular rate and rhythm. No murmur. ABDOMEN: Soft. Bowel sounds are present. No masses. No tenderness. EXTREMITIES: No pedal edema. No calf tenderness. NEUROLOGICAL: Patient is awake, alert and oriented x3. Cranial nerves 2 through 12 are grossly intact. Results CBC & Chem 7: 12/20/18 16:44 12/20/18 16:44 Labs: Abnormal Lab Results - Last 24 Hours (Table) 12/20/18 12/20/18 12/20/18 Range/Units 16:44 16:44 18:15 WBC 11.7 H (3.8-10.6) k/uL Neutrophils # 9.7 H (1.3-7.7) k/uL Sodium 136 L (137-145) mmol/L BUN 20 H (7-17) mg/dL Glucose 106 H (74-99) mg/dL AST 47 H (14-36) U/L Urine Appearance Cloudy H (Clear) Urine Protein Trace H (Negative) Urine Ketones Trace H (Negative) Urine Blood Small H (Negative) Urine Nitrite Positive H (Negative) Ur Leukocyte Esterase Large H (Negative) Urine RBC 6 H (0-5) /hpf Urine WBC >182 H (0-5) /hpf Urine WBC Clumps Few H (None) /hpf Urine Bacteria Many H (None) /hpf Urine Mucus Rare H (None) /hpf Urine Yeast (Budding) Occasional H (None) /hpf Microbiology - Last 24 Hours (Table) 12/20/18 18:15 Urine Culture - Preliminary Urine,Voided Thrombosis Risk Factor Assmnt - DVT/VTE Prophylaxis DVT/VTE Prophylaxis: Pharmacologic Prophylaxis ordered - Choose All That Apply Any of the Below Risk Factors Present?: Yes Each Factor Represents 1 point: Age 41-60 years, Obesity (BMI >25) Other Risk Factors: No Thrombosis Risk Factor Assessment Total Risk Factor Score: 2 Thrombosis Risk Factor Assessment Level: Low Risk Assessment and Plan Plan: 1. Pyelonephritis. Patient started on Rocephin 2 g daily, urine culture and blood culture in progress. IV fluids will be discontinued. Discontinue Manzano catheter. 2. Large left renal calculus. Consult with urology appreciated. If patient improves with antibiotic treatment no need for double-J catheter. Due to the size of the renal calculus percutaneous nephrolithotomy may be a treatment option to be done in several weeks after infection resolves. 3. Coronary artery disease, congenital heart fistula status post repair. Continue atenolol 12.5 mg daily, Lipitor 10 mg at bedtime, Plavix 75 mg at bedtime. 4. Hyperlipidemia. Continue atorvastatin 10 mg at bedtime. 5. Chronic back pain, scoliosis. Spondylolisthesis with spinal stenosis at L4 5 with previous surgery and multiple pain procedures. Continue oxycodone as needed 6. Migraine headaches. Continue Fioricet as needed. 7. Recurrent depression. Continue Zoloft 75 mg at bedtime. 8. GI prophylaxis. Protonix. 9. DVT prophylaxis. Heparin subcu. 10. IBS presenting with diarrhea, monitor. Patient will be admitted to the hospital for a minimum of 2 night stay. Discharge plan: Return home Impression and plan of care have been directed as dictated by the signing physician. [facility] nurse practitioner acting as scribe for signing physician.
--- NOTE | 2018-12-21 16:11 | P.PN ---
Progress Note - Text Progress Note Date: 12/21/18 The patient is afebrile and says that she feels much better than she did yesterday afternoon. She is tolerating a diet. Her overall presentation appears more consistent with left pyelonephritis which caused a fever however it is still unusual that she had only minimal flank or abdominal pain. She will be continued on IV antibiotics. At this time I do not feel that placement of a left double-J catheter will need to be considered during this hospitalization.
[2018-12-21] MEDS: ATORVASTATIN 10 MG TAB PO SCH (21:02)
[2018-12-21] MEDS: CLOPIDOGREL 75 MG TAB PO SCH (21:02)
[2018-12-21] MEDS: AMITRIPTYLINE HCL 25 MG TAB PO SCH (21:02)
[2018-12-21] MEDS: HEPARIN SODIUM,PORCINE 5,000 UNIT/ML 1 ML VIAL SQ SCH (21:02)
[2018-12-21] MEDS: MONTELUKAST 10 MG TAB PO SCH (21:02)
[2018-12-21] MEDS: SERTRALINE 50 MG TAB PO SCH (21:03)
[2018-12-21] MEDS: TEMAZEPAM 7.5 MG CAP PO PRN (22:58)
[2018-12-22] MEDS: PANTOPRAZOLE 40 MG TABLET PO SCH (06:35)
[2018-12-22] MEDS: ATENOLOL 25 MG TAB PO SCH (09:19)
--- NOTE | 2018-12-22 09:21 | P.PN ---
Progress Note - Text Progress Note Date: 12/22/18 The patient remains afebrile and normotensive. She has no nausea, abdominal or flank pain. She had some diarrhea last night but attributes this to her IBS. Blood cultures are no growth. Preliminary urine cultures are growing a gram- negative truman. If the patient remains afebrile and comfortable she could be discharged on an oral antibiotic for 10 days once her urine cultures are back. I would like to see her back in follow-up in approximately 3 weeks.
[2018-12-22] MEDS: FERROUS SULFATE 325 MG TAB PO SCH (09:22)
[2018-12-22] MEDS: HEPARIN SODIUM,PORCINE 5,000 UNIT/ML 1 ML VIAL SQ SCH ×2 (09:22→21:24)
--- NOTE | 2018-12-22 14:01 | P.PN ---
Subjective Progress Note Date: 12/22/18 This is a 67-year-old female patient of Dr. villavicencio with a past medical history of hyperlipidemia, migraine headaches, scoliosis and chronic back pain, kidney stones in 2011. Patient states for the past 2-3 days she has had nausea unable to eat any food, difficulty with balance. She also complains of pain in every joint, chronic low back pain, fever and chills yesterday, abdominal pain,. Patient came into the [facility] emergency center for evaluation. WBC 11.7, creatinine 0.84, lipase 59, AST 47. Urinalysis cloudy, nitrate positive, leukoesterase large, RBC 6, W BC greater than 182 with clumps and many bacteria. CAT scan of the abdomen and pelvis with contrast revealed left-sided hydronephrosis and perinephric edema consistent with obstruction due to large calculus at the ureteropelvic junction. Patient was given a dose of Rocephin in the emergency center and admitted to the medical floor. Urine culture and blood culture in progress. Patient has been seen by Dr. Presley with suspected intermittent obstruction of the ureteropelvic junction from calculus. His patient improves with antibiotic treatment, double-J catheter will not be necessary emergently. Due to size of the left renal calculus, percutaneous nephrolithotomy may be the best treatment option but this would need to be deferred for several weeks to allow resolution of her infection. Patient states that she had 2-3 episodes of diarrhea since breakfast. She does have history of irritable bowel syndrome. 12/22: Patient has been seen by Dr. Presley and he recommends antibiotics for 10 days and follow-up with him in 3 weeks. Patient has been cleared for discharge. patient states that she still is having some episodes of diarrhea which are not too bothersome to her and she does not want to start Lomotil. She states her bowels have been messed up since she has been off. Since Monday. We will plan to monitor overnight, overweight urine culture report and plan for discharge home tomorrow. Objective - Vital Signs Vital signs: Vital Signs Temp 97.8 F 12/22/18 09:13 Pulse 79 12/22/18 09:13 Resp 16 12/22/18 09:13 BP 121/55 12/22/18 09:13 Pulse Ox 94 L 12/22/18 09:13 Intake & Output 12/21/18 12/22/18 12/22/18 18:59 06:59 18:59 Intake Total 500 Output Total 550 Balance -50 Intake: Oral 500 Output: Urine 550 Other: Voiding Method Toilet Toilet # Voids 1 - Exam Review of Systems Constitutional: Reports chills, Reports fatigue, Reports fever, Reports poor a ppetite, Denies anorexia Ears, nose, mouth and throat: Reports vertigo, Denies dysphagia, Denies nasal congestion, Denies nasal discharge Cardiovascular: Denies decreased exercise tolerance, Denies dyspnea on exertion, Denies edema, Denies lightheadedness, Denies shortness of breath, Denies syncope Respiratory: Denies cough, Denies cough with sputum, Denies dyspnea, Denies excessive sputum, Denies hemoptysis, Denies home oxygen, Denies wheezing Gastrointestinal: Reports abdominal pain, Reports diarrhea, Reports loss of appetite, Reports nausea Musculoskeletal: Reports myalgias, Denies frequent falls, Denies gait dysfunction, Denies muscle weakness Integumentary: Denies pruritus, Denies rash, Denies wounds Neurological: Denies numbness, Denies weakness Psychiatric: Denies anxiety, Denies depression Gen: This is a 67-year-old obese female. She is resting in bed appears to be comfortable and in no acute distress. HEENT: Head is atraumatic, normocephalic. Pupils equal, round. Sclerae is anicteric. NECK: Supple. No JVD. No lymphadenopathy. No thyromegaly. LUNGS: Clear to auscultation. No wheezes or rhonchi. No intercostal retractions. HEART: Regular rate and rhythm. No murmur. ABDOMEN: Soft. Bowel sounds are present. No masses. No tenderness.no suprapubic tenderness. No CVA tenderness. EXTREMITIES: No pedal edema. No calf tenderness. NEUROLOGICAL: Patient is awake, alert and oriented x3. Cranial nerves 2 through 12 are grossly intact. - Labs CBC & Chem 7: 12/20/18 16:44 12/20/18 16:44 Labs: Microbiology - Last 24 Hours (Table) 12/20/18 18:15 Urine Culture - Preliminary Urine,Voided Gram Neg Bacilli 12/20/18 16:44 Blood Culture - Preliminary Blood No Growth after 24 hours Assessment and Plan Plan: 1. Pyelonephritis. Patient started on Rocephin 2 g daily, urine culture and blood culture in progress. IV fluids will be discontinued. Discontinue Manzano catheter. 2. Large left renal calculus. Consult with urology appreciated. If patient improves with antibiotic treatment no need for double-J catheter. Due to the s ize of the renal calculus percutaneous nephrolithotomy may be a treatment option to be done in several weeks after infection resolves. 3. Coronary artery disease, congenital heart fistula status post repair. Continue atenolol 12.5 mg daily, Lipitor 10 mg at bedtime, Plavix 75 mg at bedtime. 4. Hyperlipidemia. Continue atorvastatin 10 mg at bedtime. 5. Chronic back pain, scoliosis. Spondylolisthesis with spinal stenosis at L4 5 with previous surgery and multiple pain procedures. Continue oxycodone as needed 6. Migraine headaches. Continue Fioricet as needed. 7. Recurrent depression. Continue Zoloft 75 mg at bedtime. 8. GI prophylaxis. Protonix. 9. DVT prophylaxis. Heparin subcu. 10. IBS presenting with diarrhea, monitor. Discharge plan: Return homeon Monday Impression and plan of care have been directed as dictated by the signing physician. [facility] nurse practitioner acting as scribe for signing physician.
[2018-12-22] MEDS ORDERED: ATENOLOL 12.5 MG TAB PO SCH (14:04)
[2018-12-22] MEDS: SERTRALINE 50 MG TAB PO SCH (21:24)
[2018-12-22] MEDS: AMITRIPTYLINE HCL 25 MG TAB PO SCH (21:24)
[2018-12-22] MEDS: CLOPIDOGREL 75 MG TAB PO SCH (21:24)
[2018-12-22] MEDS: MONTELUKAST 10 MG TAB PO SCH (21:25)
[2018-12-22] MEDS: ATORVASTATIN 10 MG TAB PO SCH (21:25)
[2018-12-22 23:14] VITALS: TEMP 98.4
[2018-12-22] MEDS: TEMAZEPAM 7.5 MG CAP PO PRN (23:31)
[2018-12-23] MEDS: PANTOPRAZOLE 40 MG TABLET PO SCH (07:12)
[2018-12-23 07:15] VITALS: BP 99/61; PULSE 64; RESP 16
[2018-12-23] MEDS: FERROUS SULFATE 325 MG TAB PO SCH (09:25)
[2018-12-23] MEDS: HEPARIN SODIUM,PORCINE 5,000 UNIT/ML 1 ML VIAL SQ SCH (09:25)
--- NOTE | 2018-12-23 11:44 | P.DS ---
Providers Date of admission: 12/20/18 19:19 Expected date of discharge: 12/23/18 Attending physician: Nicolas Kenney MD Consults: 12/20/18 19:19 Consult Physician Routine Consulting Provider: New Presley Consult Reason/Comments: pyelonephritis w kidney stones Do you want consulting provider notified?: Yes Primary care physician: General Acute Hospital Course: This is a 67-year-old female patient of Dr. villavicencio with a past medical history of hyperlipidemia, migraine headaches, scoliosis and chronic back pain, kidney stones in 2011. Patient states for the past 2-3 days she has had nausea unable to eat any food, difficulty with balance. She also complains of pain in every joint, chronic low back pain, fever and chills yesterday, abdominal pain,. Patient came into the [facility] emergency center for evaluation. WBC 11.7, creatinine 0.84, lipase 59, AST 47. Urinalysis cloudy, nitrate positive, leukoesterase large, RBC 6, W BC greater than 182 with clumps and many bacteria. CAT scan of the abdomen and pelvis with contrast revealed left-sided hydronephrosis and perinephric edema consistent with obstruction due to large calculus at the ureteropelvic junction. Patient was given a dose of Rocephin in the emergency center and admitted to the medical floor. Urine culture and blood culture in progress. Patient has been seen by Dr. Presley with suspected intermittent obstruction of the ureteropelvic junction from calculus. His patient improves with antibiotic treatment, double-J catheter will not be necessary emergently. Due to size of the left renal calculus, percutaneous nephrolithotomy may be the best treatment option but this would need to be deferred for several weeks to allow resolution of her infection. Patient states that she had 2-3 episodes of diarrhea since breakfast. She does have history of irritable bowel syndrome. 12/22: Patient has been seen by Dr. Presley and he recommends antibiotics for 10 days and follow-up with him in 3 weeks. Patient has been cleared for discharge. patient states that she still is having some episodes of diarrhea which are not too bothersome to her and she does not want to start Lomotil. She states her bowels have been messed up since she has been off. Since Monday. We will plan to monitor overnight, overweight urine culture report and plan for discharge home tomorrow. 12/23: Patient states that her IBS is starting to get under control. She has been afebrile. She is anxious to be. Urine cultures positive for pansensitive E. coli. IV Rocephin will be transitioned to Ceftin and patient will be discharged home today in stable condition. Discharge diagnoses: 1. Acute Pyelonephritis. 2. Large left renal calculus. Due to the size of the renal calculus percutaneous nephrolithotomy may be a treatment option to be done in several weeks after infection resolves. 3. Coronary artery disease, congenital heart fistula status post repair. 4. Hyperlipidemia. 5. Chronic back pain, scoliosis. Spondylolisthesis with spinal stenosis at L4 5 with previous surgery and multiple pain procedures. 6. Migraine headaches. 7. Recurrent depression. 8. IBS presenting with diarrhea, monitor. Discharge plan: Return home Impression and plan of care have been directed as dictated by the signing physician. [facility] nurse practitioner acting as scribe for signing physician. Patient Condition at Discharge: Good Plan - Discharge Summary Discharge Rx Participant: No New Discharge Prescriptions: New Cefuroxime Axetil [Ceftin] 500 mg PO BID 10 Days #20 tab Continue Clopidogrel [Plavix] 75 mg PO HS Butalb/Acetaminophen/Caffeine [Fioricet 50-325-40] 1 - 2 tab PO Q4H PRN PRN Reason: Headache Simvastatin [Zocor] 20 mg PO HS Atenolol 12.5 mg PO DAILY Sertraline HCl [Zoloft] 75 mg PO HS Cyanocobalamin [Vitamin B-12] 500 mcg PO MOWEFR Ferrous Sulfate [Iron] 325 mg PO DAILY Nitroglycerin Sl Tabs [Nitrostat] 0.4 mg SUBLINGUAL Q5M PRN PRN Reason: Chest Pain Cholecalciferol (Vitamin D3) [Vitamin D3] 2,000 unit PO MOWEFR Montelukast [Singulair] 10 mg PO HS EPINEPHrine [Epipen 2-Malik] 0.3 mg IM ONCE PRN PRN Reason: Anaphylaxis Amitriptyline HCl [Elavil] 75 mg PO HS Vitamin A(Unknown) 1 cap PO MOTUWETHFR Discharge Medication List Atenolol 12.5 mg PO DAILY 11/07/14 [History] Butalb/Acetaminophen/Caffeine [Fioricet 50-325-40] 1 - 2 tab PO Q4H PRN 11/07/14 [History] Clopidogrel [Plavix] 75 mg PO HS 11/07/14 [History] Simvastatin [Zocor] 20 mg PO HS 11/07/14 [History] Sertraline HCl [Zoloft] 75 mg PO HS 01/25/16 [History] Cyanocobalamin [Vitamin B-12] 500 mcg PO MOWEFR 02/09/16 [History] Ferrous Sulfate [Iron] 325 mg PO DAILY 07/05/17 [History] Nitroglycerin Sl Tabs [Nitrostat] 0.4 mg SUBLINGUAL Q5M PRN 09/04/17 [History] Amitriptyline HCl [Elavil] 75 mg PO HS 12/20/18 [History] Cholecalciferol (Vitamin D3) [Vitamin D3] 2,000 unit PO MOWEFR 12/20/18 [History] EPINEPHrine [Epipen 2-Malik] 0.3 mg IM ONCE PRN 12/20/18 [History] Montelukast [Singulair] 10 mg PO HS 12/20/18 [History] Vitamin A(Unknown) 1 cap PO MOTUWETHFR 12/20/18 [History] Cefuroxime Axetil [Ceftin] 500 mg PO BID 10 Days #20 tab 12/23/18 [Rx] Follow up Appointment(s)/Referral(s): Liz Andrews MD [Primary Care Provider] - 1 Week (Please call the office on monday to be seen for a follow up in one week.) New Presley MD [STAFF PHYSICIAN] - 3 Weeks (Please call Dr Presley's office on Monday to make an appointment to be seen in 2 to 3 weeks.) Patient Instructions/Handouts: Urinary Tract Infection in Women (DC), Kidney Infection (ED) Activity/Diet/Wound Care/Special Instructions: Good handwashing, Drink plenty of fluids Activity as tolerated, rest as needed. Call Dr Andrews or Dr Presley if you develop a fever, chills, pain, or if you have any other questions or concerns. Discharge Disposition: HOME SELF-CARE
== END 2018-12-23 10:45 | disposition home or self-care (01) | DRG 690 ==
LOC: EC 15:26 → 6PED 19:19
PROVIDERS: ADMIT Internal Medicine; ATTEND Internal Medicine
DX: N13.6 Pyonephrosis (principal); F33.9 Major depressive disorder, recurrent, unspecified; B96.20 Unspecified Escherichia coli [E. coli] as the cause of diseases classified elsewhere; E78.5 Hyperlipidemia, unspecified; G43.909 Migraine, unspecified, not intractable, without status migrainosus; G89.29 Other chronic pain; I25.10 Atherosclerotic heart disease of native coronary artery without angina pectoris; M41.9 Scoliosis, unspecified; M43.16 Spondylolisthesis, lumbar region; K58.0 Irritable bowel syndrome with diarrhea; Z79.02 Long term (current) use of antithrombotics/antiplatelets; Z79.899 Other long term (current) drug therapy; Z82.0 Family history of epilepsy and other diseases of the nervous system; Z82.49 Family history of ischemic heart disease and other diseases of the circulatory system; Z83.3 Family history of diabetes mellitus; Z87.442 Personal history of urinary calculi; Z88.5 Allergy status to narcotic agent; Z88.8 Allergy status to other drugs, medicaments and biological substances; Z88.6 Allergy status to analgesic agent; Z91.041 Radiographic dye allergy status; Z90.49 Acquired absence of other specified parts of digestive tract; Z98.42 Cataract extraction status, left eye
CPT/HCPCS: 36415; 74177; 80053; 81001; 83605; 83690; 85025; 85610; 87040; 87077; 87086; 87186; 87324; 93005; 96361; 96374; 96375; 96376; 99285

== ENCOUNTER → 2019-03-06 | Outpatient (CLI) | payer BC ==
[2019-03-06 11:18] LABS: Basophils % (A) 0 %; Eosinophils # (A) 0.2 k/uL (0-0.7); Eosinophils % (A) 2 %; HCT 37.3 % (34.0-46.0); Lymphocytes # (A) 1.7 k/uL (1.0-4.8); Lymphocytes % (A) 26 %; MCH 31.5 pg (25.0-35.0); MCHC 34.8 g/dL (31.0-37.0); MCV 90.4 fL (80.0-100.0); Mean Platelet Volume 5.9; Monocytes # (A) 0.4 k/uL (0-1.0); Monocytes % (A) 6 %; Neutrophils # (A) 4.3 k/uL (1.3-7.7); Neutrophils % (A) 65 %; Platelet Count 242 k/uL (150-450); RBC 4.13 m/uL (3.80-5.40); RDW 12.7 % (11.5-15.5); WBC 6.7 k/uL (3.8-10.6)
[2019-03-06 11:28] LABS: Appearance,Urine Cloudy (Clear); Bacteria,Urine Moderate /hpf; Bilirubin,Urine Negative (Negative); Blood,Urine Moderate (Negative); Color,Urine Yellow; Glucose,Urine (UA) Negative (Negative); Ketones,Urine Negative (Negative); Leukocyte Esterase,Urine Large (Negative); Mucus,Urine Rare /hpf; Nitrite,Urine Positive (Negative); Protein,Urine Trace (Negative); RBC,Urine 41 /hpf (0-5); Specific Gravity,Urine 1.017 (1.001-1.035); Squamous Epithelial Cell,Urine 3 /hpf (0-4); Urobilinogen,Urine <2.0 mg/dL (<2.0); WBC,Urine 151 /hpf (0-5)
== END | disposition home or self-care (01) ==
LOC: LABPAT 10:25
PROVIDERS: ATTEND Urology
DX: Z01.812 Encounter for preprocedural laboratory examination (principal); N20.0 Calculus of kidney
CPT/HCPCS: 36415; 81001; 85025; 87086

== ENCOUNTER → 2019-03-06 | Outpatient (CLI) | payer BC ==
[2019-03-06 17:37] LABS: African American GFR (CKD) 104.6 (60.0-200.0); Albumin 4.2 g/dL (3.80-4.90); Anion Gap 10.6 mmol/L (4.00-12.00); Carbon Dioxide 24.4 mmol/L (21.6-31.8); Chol/HDL Ratio 3.4; Globulin 2.1 g/dL (1.6-3.3); LDL Cholesterol,Calculated 79.6 mg/dL (0.0-131.0); Magnesium 1.9 mg/dL (1.5-2.4); Potassium 4.3 mmol/L (3.5-5.5); Total Bilirubin 0.3 mg/dL (0.3-1.2); Total Protein 6.3 g/dL (6.2-8.2); VLDL Calculation 40.4 mg/dL (5.00-40.00)
[2019-03-06 19:32] LABS: Hemoglobin A1C 5.1 % (4.0-6.0)
== END | disposition home or self-care (01) ==
LOC: LABWHC1 10:24
PROVIDERS: ATTEND Family Medicine
DX: G89.4 Chronic pain syndrome (principal); E78.5 Hyperlipidemia, unspecified; M79.7 Fibromyalgia; R73.02 Impaired glucose tolerance (oral)
CPT/HCPCS: 36415; 80053; 80061; 82550; 82607; 83036; 83735; 84443

== ENCOUNTER 2019-03-13 06:20 | Observation (INO) | payer BC ==
--- NOTE | 2019-03-12 20:00 | P.GSHP ---
History of Present Illness H&P Date: 03/12/19 68yo female with a large[>2cm] infected left renal stone who comes for a left pcnl The risks complications and alternatives have been discussed SHe is on culture specific antibiotics - Constitutional Constitutional: Denies chills, Denies fever - EENT Eyes: denies blurred vision, denies pain Ears, nose, mouth and throat: Denies headache, Denies sore throat - Cardiovascular Cardiovascular: Denies chest pain, Denies shortness of breath - Respiratory Respiratory: Denies cough, Denies 7 - Gastrointestinal Gastrointestinal: Denies abdominal pain, Denies diarrhea, Denies nausea, Denies vomiting - Genitourinary (Female) Genitourinary: Denies dysuria, Denies hematuria - Genitourinary (Male) Genitourinary: Denies dysuria, Denies hematuria - Musculoskeletal Musculoskeletal: Denies myalgias - Integumentary Integumentary: Denies pruritus, Denies rash - Neurological Neurological: Denies numbness, Denies weakness - Psychiatric Psychiatric: Denies anxiety, Denies depression - Endocrine Endocrine: Denies fatigue, Denies weight change Past Medical History Past Medical History: Hyperlipidemia, Musculoskeletal Disorder Additional Past Medical History / Comment(s): CONGENITAL HEART "FISTULA". Chronic back pain, scoliosis, kidney stones. History of Any Multi-Drug Resistant Organisms: None Reported Past Surgical History: Back Surgery, Cholecystectomy, Heart Catheterization, Heart Catheterization With Stent, Orthopedic Surgery, Uterine Ablation Additional Past Surgical History / Comment(s): LEFT CATARACT. Heart fistula repair and angioplasty with STENT. LUMBAR SURGERY. LAPROSCOPY SANTOS. ORIF RIGHT HUMERUS. PAIN PROCEDURES Past Anesthesia/Blood Transfusion Reactions: Motion Sickness Date of Last Stent Placement:: UNKNOWN Past Psychological History: Depression Additional Psychological History / Comment(s): SOME SHORT TERM MEMORY LOSS. Smoking Status: Never smoker Past Alcohol Use History: None Reported Past Drug Use History: None Reported - Past Family History Mother History Unknown: Yes Additional Family Medical History / Comment(s): Mother has history of Parkinson's. Father Additional Family Medical History / Comment(s): Values history of diabetes and coronary artery disease. Patient has one sister that in her 60s from coronary artery disease and 1 sister with thyroid problems. Medications and Allergies Home Medications Medication Instructions Recorded Confirmed Type Atenolol 12.5 mg PO DAILY 11/07/14 12/20/18 History Butalb/Acetaminophen/Caffeine 1 - 2 tab PO Q4H PRN 11/07/14 12/20/18 History [Fioricet 50-325-40] Clopidogrel [Plavix] 75 mg PO HS 11/07/14 12/20/18 History Simvastatin [Zocor] 20 mg PO HS 11/07/14 12/20/18 History Sertraline HCl [Zoloft] 75 mg PO HS 01/25/16 12/20/18 History Cyanocobalamin [Vitamin B-12] 500 mcg PO MOWEFR 02/09/16 12/20/18 History Ferrous Sulfate [Iron] 325 mg PO DAILY 07/05/17 12/20/18 History Nitroglycerin Sl Tabs [Nitrostat] 0.4 mg SUBLINGUAL Q5M PRN 09/04/17 12/20/18 History Amitriptyline HCl [Elavil] 75 mg PO HS 12/20/18 12/20/18 History Cholecalciferol (Vitamin D3) 2,000 unit PO MOWEFR 12/20/18 12/20/18 History [Vitamin D3] EPINEPHrine [Epipen 2-Malik] 0.3 mg IM ONCE PRN 12/20/18 12/20/18 History Montelukast [Singulair] 10 mg PO HS 12/20/18 12/20/18 History Vitamin A(Unknown) 1 cap PO MOTUWETHFR 12/20/18 12/20/18 History Cefuroxime Axetil [Ceftin] 500 mg PO BID 10 Days #20 tab 12/23/18 Rx Allergies Allergy/AdvReac Type Severity Reaction Status Date / Time Iodinated Contrast Media Allergy Unknown Swelling Verified 12/20/18 17:24 [Iodinated Contrast Media - IV Dye] yellow dye Allergy Unknown Swelling Verified 12/20/18 17:24 aspirin Allergy Swelling Verified 12/20/18 17:24 prochlorperazine edisylate Allergy RASH/HIVES, Verified 12/20/18 17:24 [From Compazine] ITCHING, AGITATED prochlorperazine maleate Allergy Rash/Hives, Verified 12/20/18 17:24 [From Compazine] ITCHING , AGITATED fentanyl AdvReac Nausea & Verified 12/20/18 17:24 Vomiting hydrocodone bitartrate AdvReac NIGHTMARES Verified 12/20/18 17:24 [From Vicodin] MUG WART Allergy Severe Swelling Uncoded 12/20/18 21:55 Surgical - Exam - General well developed, well nourished, no distress - Eyes PERRL - ENT no hearing loss - Neck trachea midline - Respiratory normal expansion, normal respiratory effort - Cardiovascular Rhythm: regular - Abdomen Abdomen: soft, non tender - Integumentary no rash, no growths - Neurologic normal coordination, normal sensation - Musculoskeletal normal gait, normal posture - Psychiatric oriented to time, oriented to person, oriented to place, speech is normal, memory intact Results - Imaging CT scan - abdomen: report reviewed, image reviewed CT scan - pelvis: report reviewed, image reviewed Assessment and Plan Assessment: Impression: Infected left left renal stone, large Plan: left pcnl
[~2019-03-13 06:20] MED LIST changes: +AMPICILLIN 1,000 MG in SODIUM CHLORIDE 0.9% 50 ML IVPB ONE; +DEXAMETHASONE SOD PHOSPHATE 10 MG/ML 1 ML VIAL IV ONE; +GENTAMICIN 120 MG in SODIUM CHLORIDE 0.9% 100 ML IVPB ONE; -LACTATED RINGERS 1,000 ML IV SCH; +LIDOCAINE 1% 20 ML VIAL (10MG/ML) FOR IV START INTRADERMA PRN; +ONDANSETRON 4 MG/2 ML VIAL IVP PRN
--- NOTE | 2019-03-13 06:45 | XR ---
EXAMINATION TYPE: XR KUB DATE OF EXAM: 03/13/2019 COMPARISON: 11/07/2014 HISTORY: Preop. Kidney stone. TECHNIQUE: 2 views supine FINDINGS: There is 2.6 cm calculus over the left kidney. There is no sign of intestinal obstruction o r pneumoperitoneum. Fecal pattern is normal. There are numerous phleboliths in the pelvis. There is n o sign of a mass. IMPRESSION: Large left renal calculus is a change compared to old exam. Nonacute abdomen.
[2019-03-13] MEDS ORDERED: MIDAZOLAM 2 MG/2 ML VIAL ONE (07:43)
[2019-03-13] MEDS ORDERED: diphenhydrAMINE 50 MG/ML 1 ML VIAL ONE (07:43)
[2019-03-13] MEDS ORDERED: NEOSTIGMINE 1 MG/ML 10 ML VIAL ONE (07:43)
[2019-03-13] MEDS ORDERED: LIDOCAINE 1% INJ 10MG/ML (20 ML MDV) ONE (07:43)
[2019-03-13] MEDS ORDERED: SUCCINYLCHOLINE CHLORIDE 100 MG/5 ML SYR IV ONE (07:43)
[2019-03-13] MEDS ORDERED: GLYCOPYRROLATE 0.2 MG/ML 2 ML VIAL ONE (07:43)
[2019-03-13] MEDS ORDERED: ePHEDrine SULFATE/0.9% NACL/PF 50 MG/5 ML SYRINGE IV ONE (07:43)
[2019-03-13] MEDS ORDERED: fentaNYL (PF) 50 MCG/ML 2 ML AMP ONE (07:43)
[2019-03-13] MEDS ORDERED: PHENYLEPHRINE-0.9% NACL SYG 1 MG/10 ML SYRINGE ONE (07:43)
[2019-03-13] MEDS ORDERED: PROPOFOL 10 MG/ML 20 ML VIAL IV ONE (07:43)
[2019-03-13] MEDS ORDERED: ROCURONIUM BROMIDE 10 MG/ML 10 ML VIAL IV ONE (07:43)
[2019-03-13] MEDS: LACTATED RINGERS 1,000 ML IV SCH ×2 (07:44→22:31)
[2019-03-13] MEDS ORDERED: IOPAMIDOL-370 50ML BTL IRRIGATION ONE (08:15)
[2019-03-13] MEDS ORDERED: LACTATED RINGERS 1,000 ML IV ONE (10:00)
[2019-03-13] MEDS ORDERED: NITROGLYCERIN SL TABS 0.4 MG TAB SUBLINGUAL PRN (10:14)
[2019-03-13] MEDS ORDERED: ONDANSETRON 4 MG/2 ML VIAL IVP PRN (10:15)
[2019-03-13] MEDS ORDERED: ACETAMINOPHEN TAB 325 MG TAB PO PRN (10:15)
[2019-03-13] MEDS ORDERED: NALOXONE 0.4 MG/ML 1 ML VIAL IV PRN (10:17)
--- NOTE | 2019-03-13 10:23 | P.OP ---
Date of Procedure: 03/13/19 Preoperative Diagnosis: Left renal stone large Postoperative Diagnosis: Same Procedure(s) Performed: Cystoscopy, placement of 5-Barbadian occluding balloon catheter, percutaneous nephrostomy (Dr. Matthieu arrieta) percutaneous nephrostolithotomy with laser lithot ripsy, placement of 20-Barbadian reentry nephrostomy tube Anesthesia: CINDI Surgeon: Ancelmo Costa Estimated Blood Loss (ml): 100 Pathology: other (Stone) Condition: stable Disposition: PACU Indications for Procedure: Patient is 68. She has a history of recurrent urine infection. She was seen by identified a 2.1 cm left renal pelvic stone. He recommended percutaneous nephrostolithotomy. She comes for this procedure. She is on culture specific antibiotic. Description of Procedure: Patient is brought to the operating suite. On the transport gurney she's given a general endotracheal anesthesia. She's placed in a frog position with a sterile prep and drape. Cystoscopy Foroblique lens and 22-Barbadian sheath identifies the left ureter orifice. It is intubated with a 5-Barbadian occluding balloon catheter. The catheter is secured to a 16-Barbadian Manzano. The patient is placed in a prone position. Dr. Arrieta of radiology performed percutaneous access to the left lower pole calyx after sterile prep and drape. The track is then dilated to 30-Barbadian. The rigid nephroscope identifies a stone and clot is removed. Unfortunately the ultrasound machine again does not function thus with laser lithotripsy, 500 probe and 8-10 W of energy the stone was broken into pieces in the larger fragments or grasp and removed. I then used the flexible scope to looked throughout the collecting system. This is somewhat difficult to do due to oozing from where the stone was lodged. I then do fluoroscopy and see no remaining stone. A 20-Barbadian reentry nephrostomy tube was placed. I'll obtain a computed tomography scan postoperatively to make sure there is no remaining stone. The patient's awake and returned recovery in good condition. Blood loss is approximately 100 mL.
[2019-03-13] MEDS: HYDROmorphone 0.5 MG/0.5 ML SYRINGE IVP PRN ×2 (10:56→11:20)
--- NOTE | 2019-03-13 11:56 | FL ---
EXAMINATION TYPE: FL Perc Nephrostomy New Access DATE OF EXAM: 03/13/2019 COMPARISON: CT 03/13/2019 HISTORY: Left renal stone Procedure had been discussed with the patient by Dr. Costa, risks, benefits, alternatives, were dis cussed and any questions were answered. Informed consent was obtained. The patient was in a semipro ne position prepped and draped on the OR table in the usual sterile fashion. Utilizing a 15 cm lengt h Chiba needle a single pass was made into a lower pole posterior calyx under fluoroscopic guidance. An 0.018 guidewire is passed through the needle and there was placement of a 6-Danish catheter sheat h system. There was conversion to a 0.035 system was performed with passage of a guidewire into the ureter utilizing a directional catheter. A second safety wire was placed. Remaining portion of pro cedure performed by . Approximately 8 minutes 7 seconds of fluoroscopy was provided. IMPRESSION: 1. Successful intraoperative left nephrostomy prior to nephrolithotomy.
[2019-03-13] MEDS: HYDROmorphone PCA 10 MG/50 ML BAG IV PRN (12:45)
[2019-03-13] MEDS: DEXTROSE 5%-0.45% NACL 1,000 ML IV SCH ×2 (13:49→22:30)
--- NOTE | 2019-03-13 16:51 | CT ---
EXAMINATION TYPE: CT abdomen pelvis wo con DATE OF EXAM: 03/13/2019 COMPARISON: KUB 03/13/2019, CT 12/20/2018 HISTORY: Left renal stone CT DLP: 934.7 mGycm Automated exposure control for dose reduction was used. TECHNIQUE: Helical acquisition of images from the lung bases through the pelvis. FINDINGS: LUNG BASES: Probable bibasilar dependent atelectatic changes are present. No significant pleural or p ericardial effusion. Metallic density is present between the atria along the septum likely due to an atrial septal defect occlusion device. Postop change noted at the gastroesophageal junction AORTA: No significant abnormality is appreciated. LIVER/GB: Liver shows low attenuation likely due to hepatic steatosis. The liver is enlarged. Gallbla dder is not seen. PANCREAS: No significant abnormality is seen. SPLEEN: No significant abnormality is seen. ADRENALS: No significant abnormality is seen. KIDNEYS: There is high density material within the collecting system of the left kidney. Malecot tube is present via posterior left nephrostomy with ureteral extension. There is air within the retroperi toneal space, inflammatory change and possibly small amount of local hemorrhage likely postprocedural . Some punctate calcifications are present at the lower pole the left kidney, approximately 2 or 3 fo ci, the larger measuring approximately 3 to 4 mm. Right renal collecting system contains contrast mat erial. Probable cortical cyst present in exophytic location at the midpole the right kidney. It is no kirk laterally. REPRODUCTIVE ORGANS: Not well seen, likely stable compared to prior exam URINARY BLADDER: Manzano catheter is in place. There is air within the urinary bladder likely postproc edural. BOWEL: No evident bowel obstruction. Appendix is normal. FREE AIR: No Free Air is visible. ASCITES: None visible. PELVIC ADENOPATHY: None visualized. RETROPERITONEAL ADENOPATHY: No Retroperitoneal Adenopathy visible. OSSEOUS STRUCTURES: Facet arthropathy noted at the lower lumbar spine, degenerative disc changes are present, there is anterolisthesis grade 1 L4-5 as on prior. IMPRESSION: INTERVAL PROCEDURAL FINDINGS DESCRIBED. CASE DISCUSSED WITH DR. WASHINGTON TELEPHONICALLY AT THE TIME O F INTERPRETATION.
[2019-03-13] MEDS: SERTRALINE 25 MG TAB PO SCH (20:14)
[2019-03-13] MEDS: MONTELUKAST 10 MG TAB PO SCH (20:15)
[2019-03-13] MEDS: AMITRIPTYLINE HCL 25 MG TAB PO SCH (20:15)
[2019-03-13] MEDS: ATORVASTATIN 10 MG TAB PO SCH (20:15)
[2019-03-13] MEDS: DIPHENOX-ATROP 2.5-0.025 MG 1 EACH TAB PO SCH (20:15)
[2019-03-13] MEDS ORDERED: CEFDINIR 300 MG CAP PO SCH (21:00)
--- NOTE | 2019-03-14 06:38 | P.PN ---
Subjective Progress Note Date: 03/14/19 The patient is in her first postoperative day from a left percutaneous nephrostolithotomy. She low-grade temperature which is probably related to the infected kidney stone as well as some atelectasis. He is not comfortable to be discharged. Her urine is clearing nicely. I'll remove her Manzano. I'll in crease her incentive spirometry. She will get up. Hopefully she can be discharged tomorrow. Her vital signs are otherwise stable. Urine output is good. Objective - Vital Signs Vital signs: Vital Signs Temp 100.7 F H 03/14/19 02:47 Pulse 89 03/14/19 02:47 Resp 17 03/14/19 02:47 BP 120/65 03/14/19 02:47 Pulse Ox 91 L 03/14/19 02:47 Intake & Output 03/13/19 03/13/19 03/14/19 06:59 18:59 06:59 Intake Total 1653 1100 Output Total 1000 575 Balance 653 525 Weight 97.976 kg Intake: IV 1653 Intake, IV Titration 1100 Amount Dextrose 5%-0.45% NaCl 1, 1100 000 ml @ 100 mls/hr IV . Q10H PAUL Rx#:[id number] Output: Drainage 450 Left FLANK 450 Urine 900 125 Estimated Blood Loss 100 Other: Voiding Method Indwelling Catheter # Voids 1
[2019-03-14] MEDS: DIPHENOX-ATROP 2.5-0.025 MG 1 EACH TAB PO SCH ×2 (07:41→20:56)
[2019-03-14] MEDS: DEXTROSE 5%-0.45% NACL 1,000 ML IV SCH ×2 (07:41→16:29)
[2019-03-14] MEDS: ATENOLOL 25 MG TAB PO SCH (07:41)
[2019-03-14] MEDS: ATORVASTATIN 10 MG TAB PO SCH (20:56)
[2019-03-14] MEDS: AMITRIPTYLINE HCL 25 MG TAB PO SCH (20:56)
[2019-03-14] MEDS: MONTELUKAST 10 MG TAB PO SCH (20:56)
[2019-03-14] MEDS: SERTRALINE 25 MG TAB PO SCH (20:57)
[2019-03-15] MEDS: DEXTROSE 5%-0.45% NACL 1,000 ML IV SCH ×3 (02:15→21:06)
[2019-03-15] MEDS: LACTATED RINGERS 1,000 ML IV SCH (04:41)
--- NOTE | 2019-03-15 07:24 | P.PN ---
Subjective Progress Note Date: 03/15/19 The patient is in her second postoperative day from a left percutaneous nephrostolithotomy. Her vital signs are stable. Her urine is cleared nicely. She is voiding without difficulty. She is still having a moderate amount of pain. She is not moving much better. We'll encourage her to ambulate to help get rid of the gas. We discussed the requirement for her to go home today. If she can ambulate, tolerate a regular diet and have her pain under control she can go home later on. Her wound is okay and her dressing is dry. Her condition is stable. Objective - Vital Signs Vital signs: Vital Signs Temp 98.0 F 03/15/19 02:43 Pulse 95 03/15/19 02:43 Resp 18 03/15/19 02:43 BP 114/65 03/15/19 02:43 Pulse Ox 90 L 03/15/19 02:43 Intake & Output 03/14/19 03/15/19 03/15/19 18:59 06:59 18:59 Output Total 400 725 Balance -400 -725 Output: Drainage 300 725 Left FLANK 300 725 Urine 100 Other: # Voids 0 2
[2019-03-15] MEDS: DIPHENOX-ATROP 2.5-0.025 MG 1 EACH TAB PO SCH ×2 (07:48→20:48)
[2019-03-15] MEDS: ATENOLOL 25 MG TAB PO SCH (07:50)
[2019-03-15] MEDS: HYDROmorphone PCA 10 MG/50 ML BAG IV PRN (17:16)
[2019-03-15] MEDS: AMITRIPTYLINE HCL 25 MG TAB PO SCH (20:47)
[2019-03-15] MEDS: SERTRALINE 25 MG TAB PO SCH (20:47)
[2019-03-15] MEDS: MONTELUKAST 10 MG TAB PO SCH (20:47)
[2019-03-15] MEDS: ATORVASTATIN 10 MG TAB PO SCH (20:47)
[2019-03-15] MEDS: MAG HYDROX/AL HYDROX/SIMETH 30 ML CUP PO PRN (21:04)
[2019-03-16] MEDS: MAG HYDROX/AL HYDROX/SIMETH 30 ML CUP PO PRN (03:06)
[2019-03-16] MEDS: LACTATED RINGERS 1,000 ML IV SCH (06:45)
[2019-03-16 07:55] VITALS: BP 116/65; PULSE 77; RESP 16; TEMP 98.3
[2019-03-16] MEDS: DIPHENOX-ATROP 2.5-0.025 MG 1 EACH TAB PO SCH (08:10)
[2019-03-16] MEDS: DEXTROSE 5%-0.45% NACL 1,000 ML IV SCH (08:12)
[2019-03-16] MEDS: ATENOLOL 25 MG TAB PO SCH (08:12)
--- NOTE | 2019-03-16 10:28 | P.DS ---
Providers Date of admission: 03/13/19 22:15 Expected date of discharge: 03/16/19 Attending physician: Ancelmo Costa Primary care physician: [facility] Course: The patient is a 68-year-old female with a history of a persistent Klebsiella pneumonia urinary tract infection and left flank pain secondary to a large left renal calculus. The patient underwent left percutaneous nephrostolithotomy performed by Dr. Costa on the date of admission. A computed tomography scan was obtained the evening following the surgery and it was Dr. Costa's feeling that no residual calculi were present. Patient had problems with postop abdominal bloating which was eventually relieved and the patient was discharged on 03/16 with her nephrostomy tube in place. She will be continued on Ceftin following the surgery and will be seen by Dr. Costa on 03/18 at which time her nephrostomy tube will be removed. Plan - Discharge Summary Discharge Rx Participant: Yes New Discharge Prescriptions: New HYDROcodone/APAP 5-325MG [[place] 5-325] 1 tab PO Q4HR PRN #10 tab PRN Reason: Pain Cephalexin [Keflex] 500 mg PO Q8HR #21 cap No Action Clopidogrel [Plavix] 75 mg PO HS Butalb/Acetaminophen/Caffeine [Fioricet 50-325-40] 1 - 2 tab PO Q4H PRN PRN Reason: Headache Simvastatin [Zocor] 20 mg PO HS Atenolol 12.5 mg PO DAILY Sertraline HCl [Zoloft] 75 mg PO HS Cyanocobalamin [Vitamin B-12] 500 mcg PO MOWEFR Ferrous Sulfate [Iron] 325 mg PO DAILY Nitroglycerin Sl Tabs [Nitrostat] 0.4 mg SUBLINGUAL Q5M PRN PRN Reason: Chest Pain Cholecalciferol (Vitamin D3) [Vitamin D3] 2,000 unit PO MOWEFR Montelukast [Singulair] 10 mg PO HS EPINEPHrine [Epipen 2-Malik] 0.3 mg IM ONCE PRN PRN Reason: Anaphylaxis Amitriptyline HCl [Elavil] 75 mg PO HS Vitamin A(Unknown) 1 cap PO MOTUWETHFR Cefuroxime Axetil [Ceftin] 500 mg PO BID 10 Days #20 tab Diphenoxylate HCl/Atropine [Lomotil 2.5-0.025 mg Tablet] 1 dose PO BID Discharge Medication List Atenolol 12.5 mg PO DAILY 11/07/14 [History] Butalb/Acetaminophen/Caffeine [Fioricet 50-325-40] 1 - 2 tab PO Q4H PRN 11/07/14 [History] Clopidogrel [Plavix] 75 mg PO HS 11/07/14 [History] Simvastatin [Zocor] 20 mg PO HS 11/07/14 [History] Sertraline HCl [Zoloft] 75 mg PO HS 01/25/16 [History] Cyanocobalamin [Vitamin B-12] 500 mcg PO MOWEFR 02/09/16 [History] Ferrous Sulfate [Iron] 325 mg PO DAILY 07/05/17 [History] Nitroglycerin Sl Tabs [Nitrostat] 0.4 mg SUBLINGUAL Q5M PRN 09/04/17 [History] Amitriptyline HCl [Elavil] 75 mg PO HS 12/20/18 [History] Cholecalciferol (Vitamin D3) [Vitamin D3] 2,000 unit PO MOWEFR 12/20/18 [History] EPINEPHrine [Epipen 2-Malik] 0.3 mg IM ONCE PRN 12/20/18 [History] Montelukast [Singulair] 10 mg PO HS 12/20/18 [History] Vitamin A(Unknown) 1 cap PO MOTUWETHFR 12/20/18 [History] Cefuroxime Axetil [Ceftin] 500 mg PO BID 10 Days #20 tab 12/23/18 [Rx] Diphenoxylate HCl/Atropine [Lomotil 2.5-0.025 mg Tablet] 1 dose PO BID 03/13/19 [History] HYDROcodone/APAP 5-325MG [[place] 5-325] 1 tab PO Q4HR PRN #10 tab 03/15/19 [Rx] Cephalexin [Keflex] 500 mg PO Q8HR #21 cap 03/16/19 [Rx] Follow up Appointment(s)/Referral(s): Ancelmo Costa MD [STAFF PHYSICIAN] - 03/18/19 8:40 am Patient Instructions/Handouts: Percutaneous Nephrolithotomy (DC), Nephrostomy Tube Care (DC) Activity/Diet/Wound Care/Special Instructions: Empty nephrostomy tube when bag half full. Record output and bring record to follow up appt with Dr. Costa
== END 2019-03-16 14:04 | disposition home or self-care (01) ==
LOC: OR 06:20 → 4SSUR 11:00 → OR 22:14 → 4SSUR 22:15
PROVIDERS: ADMIT Urology; ATTEND Urology
DX: N20.0 Calculus of kidney (principal); Z87.440 Personal history of urinary (tract) infections; E78.5 Hyperlipidemia, unspecified; G89.29 Other chronic pain; M54.9 Dorsalgia, unspecified; Z87.442 Personal history of urinary calculi; Q24.9 Congenital malformation of heart, unspecified; Z90.49 Acquired absence of other specified parts of digestive tract; F32.9 Major depressive disorder, single episode, unspecified; Z95.5 Presence of coronary angioplasty implant and graft; R41.3 Other amnesia; Z79.899 Other long term (current) drug therapy; Z79.02 Long term (current) use of antithrombotics/antiplatelets; Z88.6 Allergy status to analgesic agent; Z91.041 Radiographic dye allergy status; Z88.5 Allergy status to narcotic agent; Z88.8 Allergy status to other drugs, medicaments and biological substances; Z91.048 Other nonmedicinal substance allergy status; Z82.0 Family history of epilepsy and other diseases of the nervous system; Z83.3 Family history of diabetes mellitus; Z82.49 Family history of ischemic heart disease and other diseases of the circulatory system; Z83.49 Family history of other endocrine, nutritional and metabolic diseases
CPT/HCPCS: 50081; 94760; 97161; 97166; 86900; 86901; 86850; 82365; 50432; 74018; 74176; G0378 ×4; C1769 ×3; C2628; C1894; J1580; J1100; J2405; J0290; J1170 ×3; Q9967

== ENCOUNTER 2019-03-18 19:42 | Emergency (ER) | payer BC ==
[2019-03-18] MEDS ORDERED: SODIUM CHLORIDE 0.9% 1,000 ML IV STA (20:14)
[2019-03-18] MEDS ORDERED: MORPHINE SULFATE 4 MG/ML SYRINGE IV STA (20:14)
[2019-03-18] MEDS ORDERED: SODIUM CHLORIDE 0.9% 500 ML 500 ML IV STA (20:14)
--- NOTE | 2019-03-18 20:18 | ED ---
Abdominal Pain HPI - General Chief Complaint: Abdominal Pain Stated Complaint: Post Op Abd Pain Time Seen by Provider: 03/18/19 19:52 Source: patient, RN notes reviewed, old records reviewed Mode of arrival: ambulatory Limitations: no limitations - History of Present Illness Initial Comments: This is a 68-year-old female presenting with multiple complaints, patient has severe shortness of breath with severe abdominal pain. Generalized diffuse abdominal pain. Patient recent surgical procedure, left nephrostomy with left ureteral catheter secondary to large kidney stone. She also lithotripsy. Patient has left gastrostomy tube removed today denying any fevers but feels very sweaty weak and having increasing abdominal pain. Patient is taking Ty lenol threes for pain, she did take Tylenol 3 prior to arrival with no help and pain. I'll nausea no vomiting bowel movements are normal and she feels like she cannot urinate MD Complaint: abdominal pain, flank pain (Left,) -: hour(s) Location: L flank Radiation: L flank Migration to: no migration Severity: moderate Severity scale (1-10): 7 Quality: stabbing, aching Consistency: constant Improves With: nothing Worsens With: nothing Associated Symptoms: nausea - Related Data Home Medications Medication Instructions Recorded Confirmed Atenolol 12.5 mg PO DAILY 11/07/14 03/18/19 Butalb/Acetaminophen/Caffeine 1 - 2 tab PO Q4H PRN 11/07/14 03/18/19 [Fioricet 50-325-40] Clopidogrel [Plavix] 75 mg PO HS 11/07/14 03/18/19 Simvastatin [Zocor] 20 mg PO HS 11/07/14 03/18/19 Sertraline HCl [Zoloft] 75 mg PO HS 01/25/16 03/18/19 Cyanocobalamin [Vitamin B-12] 500 mcg PO MOWEFR 02/09/16 03/18/19 Ferrous Sulfate [Iron] 325 mg PO DAILY 07/05/17 03/18/19 Nitroglycerin Sl Tabs [Nitrostat] 0.4 mg SUBLINGUAL Q5M PRN 09/04/17 03/18/19 Amitriptyline HCl [Elavil] 75 mg PO HS 12/20/18 03/18/19 Cholecalciferol (Vitamin D3) 2,000 unit PO MOWEFR 12/20/18 03/18/19 [Vitamin D3] EPINEPHrine [Epipen 2-Malik] 0.3 mg IM ONCE PRN 12/20/18 03/18/19 Montelukast [Singulair] 10 mg PO HS 12/20/18 03/18/19 Vitamin A(Unknown) 1 cap PO MOTUWETHFR 12/20/18 03/18/19 Diphenoxylate HCl/Atropine 1 tab PO BID 03/13/19 03/18/19 [Lomotil 2.5-0.025 mg Tablet] Previous Rx's Medication Instructions Recorded Cefuroxime Axetil [Ceftin] 500 mg PO BID 10 Days #20 tab 12/23/18 Allergies Allergy/AdvReac Type Severity Reaction Status Date / Time Iodinated Contrast Media Allergy Unknown Swelling Verified 03/18/19 19:56 [Iodinated Contrast Media - IV Dye] yellow dye Allergy Unknown Swelling Verified 03/18/19 19:56 aspirin Allergy Swelling Verified 03/18/19 19:56 prochlorperazine edisylate Allergy RASH/HIVES, Verified 03/18/19 19:56 [From Compazine] ITCHING, AGITATED prochlorperazine maleate Allergy Rash/Hives, Verified 03/18/19 19:56 [From Compazine] ITCHING , AGITATED fentanyl AdvReac Nausea & Verified 03/18/19 19:56 Vomiting hydrocodone bitartrate AdvReac NIGHTMARES Verified 03/18/19 19:56 [From Vicodin] MUG WART Allergy Severe Swelling Uncoded 03/18/19 19:46 Review of Systems ROS Statement: Those systems with pertinent positive or pertinent negative responses have been documented in the HPI. ROS Other: All systems not noted in ROS Statement are negative. Past Medical History Past Medical History: Hyperlipidemia, Musculoskeletal Disorder Additional Past Medical History / Comment(s): CONGENITAL HEART "FISTULA". Chronic back pain, scoliosis, kidney stones. History of Any Multi-Drug Resistant Organisms: None Reported Past Surgical History: Back Surgery, Cholecystectomy, Heart Catheterization, Heart Catheterization With Stent, Orthopedic Surgery, Uterine Ablation Additional Past Surgical History / Comment(s): LEFT CATARACT. Heart fistula repair and angioplasty with STENT. LUMBAR SURGERY. LAPROSCOPY SANTOS. ORIF RIGHT HUMERUS. PAIN PROCEDURES, Lithotrispy Past Anesthesia/Blood Transfusion Reactions: Motion Sickness Date of Last Stent Placement:: UNKNOWN Past Psychological History: Anxiety, Depression Smoking Status: Never smoker Past Alcohol Use History: None Reported Past Drug Use History: None Reported - Past Family History Mother History Unknown: Yes Additional Family Medical History / Comment(s): Mother has history of Parkinson's. Father Additional Family Medical History / Comment(s): Values history of diabetes and coronary artery disease. Patient has one sister that in her 60s from coronary artery disease and 1 sister with thyroid problems. General Exam - General Exam Comments Initial Comments: Significantly diaphoretic Limitations: no limitations General appearance: anxious, in distress Head exam: Present: atraumatic, normocephalic, normal inspection Eye exam: Present: normal appearance, PERRL, EOMI. Absent: scleral icterus, con junctival injection, periorbital swelling ENT exam: Present: normal exam, normal oropharynx, mucous membranes moist Neck exam: Present: normal inspection. Absent: tenderness, meningismus, lymphadenopathy Respiratory exam: Present: normal lung sounds bilaterally. Absent: respiratory distress, wheezes, rales, rhonchi, stridor Cardiovascular Exam: Present: regular rate, normal rhythm, normal heart sounds. Absent: systolic murmur, diastolic murmur, rubs, gallop, clicks GI/Abdominal exam: Present: distended, tenderness, guarding, normal bowel sounds. Absent: rebound, rigid Extremities exam: Present: normal inspection, full ROM, normal capillary refill. Absent: tenderness, pedal edema, joint swelling, calf tenderness Back exam: Present: normal inspection Neurological exam: Present: alert, oriented X3, CN II-XII intact Psychiatric exam: Present: normal affect, normal mood Skin exam: Present: warm, dry, intact, normal color. Absent: rash Course Vital Signs 03/18/19 03/18/19 19:43 21:42 Temperature 99.3 F 99.4 F Pulse Rate 81 73 Respiratory 16 18 Rate Blood Pressure 132/62 121/64 O2 Sat by Pulse 96 98 Oximetry - Reevaluation(s) Reevaluation #1: 03/18/19 20:19 Medical records reviewed 03/18/19 20:19 Prior surgical history record is reviewed Reevaluation #2: 03/18/19 20:19 bladder Scan done at bedside shows empty urinary bladder Medical Decision Making - Medical Decision Making 68 female the ER for left flank pain no real abdominal tenderness. Patient is currently controlled CT chest and pelvis negative for acute disease, patient can be discharged home - Lab Data Result diagrams: 03/18/19 20:33 03/18/19 20:33 Lab Results 03/18/19 03/18/19 03/18/19 Range/Units 20:33 20:33 20:33 WBC 12.1 H (3.8-10.6) k/uL RBC 3.70 L (3.80-5.40) m/uL Hgb 11.6 (11.4-16.0) gm/dL Hct 33.9 L (34.0-46.0) % MCV 91.6 (80.0-100.0) fL MCH 31.3 (25.0-35.0) pg MCHC 34.2 (31.0-37.0) g/dL RDW 12.5 (11.5-15.5) % Plt Count 276 (150-450) k/uL Neutrophils % 75 % Lymphocytes % 14 % Monocytes % 6 % Eosinophils % 2 % Basophils % 0 % Neutrophils # 9.0 H (1.3-7.7) k/uL Lymphocytes # 1.6 (1.0-4.8) k/uL Monocytes # 0.7 (0-1.0) k/uL Eosinophils # 0.3 (0-0.7) k/uL Basophils # 0.0 (0-0.2) k/uL D-Dimer 3.16 H (<0.60) mg/L FEU Sodium 139 (137-145) mmol/L Potassium 4.2 (3.5-5.1) mmol/L Chloride 108 H (98-107) mmol/L Carbon Dioxide 22 (22-30) mmol/L Anion Gap 9 mmol/L BUN 10 (7-17) mg/dL Creatinine 0.91 (0.52-1.04) mg/dL Est GFR (CKD-EPI)AfAm 76 (>60 ml/min/1.73 sqM) Est GFR (CKD-EPI)NonAf 66 (>60 ml/min/1.73 sqM) Glucose 118 H (74-99) mg/dL Calcium 9.1 (8.4-10.2) mg/dL Phosphorus 3.6 (2.5-4.5) mg/dL Magnesium 1.9 (1.6-2.3) mg/dL Total Bilirubin 0.3 (0.2-1.3) mg/dL AST 29 (14-36) U/L ALT 32 (9-52) U/L Alkaline Phosphatase 109 (38-126) U/L Troponin I (0.000-0.034) ng/mL Total Protein 6.7 (6.3-8.2) g/dL Albumin 3.7 (3.5-5.0) g/dL 03/18/19 Range/Units 20:33 WBC (3.8-10.6) k/uL RBC (3.80-5.40) m/uL Hgb (11.4-16.0) gm/dL Hct (34.0-46.0) % MCV (80.0-100.0) fL MCH (25.0-35.0) pg MCHC (31.0-37.0) g/dL RDW (11.5-15.5) % Plt Count (150-450) k/uL Neutrophils % % Lymphocytes % % Monocytes % % Eosinophils % % Basophils % % Neutrophils # (1.3-7.7) k/uL Lymphocytes # (1.0-4.8) k/uL Monocytes # (0-1.0) k/uL Eosinophils # (0-0.7) k/uL Basophils # (0-0.2) k/uL D-Dimer (<0.60) mg/L FEU Sodium (137-145) mmol/L Potassium (3.5-5.1) mmol/L Chloride (98-107) mmol/L Carbon Dioxide (22-30) mmol/L Anion Gap mmol/L BUN (7-17) mg/dL Creatinine (0.52-1.04) mg/dL Est GFR (CKD-EPI)AfAm (>60 ml/min/1.73 sqM) Est GFR (CKD-EPI)NonAf (>60 ml/min/1.73 sqM) Glucose (74-99) mg/dL Calcium (8.4-10.2) mg/dL Phosphorus (2.5-4.5) mg/dL Magnesium (1.6-2.3) mg/dL Total Bilirubin (0.2-1.3) mg/dL AST (14-36) U/L ALT (9-52) U/L Alkaline Phosphatase (38-126) U/L Troponin I <0.012 (0.000-0.034) ng/mL Total Protein (6.3-8.2) g/dL Albumin (3.5-5.0) g/dL - EKG Data -: EKG Interpreted by Me (EKG shows normal sinus rhythm rate of 73, WV 122, QRS 80, QTC 453) - Radiology Data Radiology results: report reviewed (CTA chest CT head and pelvis negative for ac sly disease), image reviewed Disposition Clinical Impression: Postoperative pain, Left flank pain, Chronic pain syndrome Disposition: HOME SELF-CARE Condition: Good Instructions (If sedation given, give patient instructions): Flank Pain (ED) Is patient prescribed a controlled substance at d/c from ED?: No Referrals: Liz Andrews MD [Primary Care Provider] - 1-2 days
[2019-03-18 20:51] LABS: Basophils % (A) 0 %; Eosinophils # (A) 0.3 k/uL (0-0.7); Eosinophils % (A) 2 %; HCT 33.9 % (34.0-46.0); HGB 11.6 gm/dL (11.4-16.0); Lymphocytes # (A) 1.6 k/uL (1.0-4.8); Lymphocytes % (A) 14 %; MCH 31.3 pg (25.0-35.0); MCHC 34.2 g/dL (31.0-37.0); MCV 91.6 fL (80.0-100.0); Mean Platelet Volume 5.8; Monocytes # (A) 0.7 k/uL (0-1.0); Monocytes % (A) 6 %; Neutrophils % (A) 75 %; Platelet Count 276 k/uL (150-450); RDW 12.5 % (11.5-15.5); WBC 12.1 k/uL (3.8-10.6)
[2019-03-18 21:00] LABS: Albumin 3.7 g/dL (3.5-5.0); Calcium 9.1 mg/dL (8.4-10.2); Magnesium 1.9 mg/dL (1.6-2.3); Phosphorus 3.6 mg/dL (2.5-4.5); Potassium 4.2 mmol/L (3.5-5.1); Total Bilirubin 0.3 mg/dL (0.2-1.3); Total Protein 6.7 g/dL (6.3-8.2)
[2019-03-18] MEDS ORDERED: FAMOTIDINE 20 MG/2 ML VIAL IV STA (21:38)
[2019-03-18] MEDS ORDERED: methylPREDNISolone SOD SUCCI 125 MG/2 ML VIAL IV STA (21:38)
[2019-03-18] MEDS ORDERED: diphenhydrAMINE 50 MG/ML 1 ML VIAL IVP STA (21:38)
[2019-03-18 21:43] VITALS: RESP 18
--- NOTE | 2019-03-18 22:42 | CT ---
EXAMINATION TYPE: CT angio chest DATE OF EXAM: 03/18/2019 10:21 PM COMPARISON: 02/09/2016 HISTORY: Lithotripsy 2 days ago. Left sided pain. YURIDIA. CT DLP: 438.7 mGycm Automated exposure control for dose reduction was used. CONTRAST: CTA scan of the thorax is performed with IV Contrast, patient injected with 100 mL of Isovue 370, pul monary embolism protocol. . There are 3-D post processed images. FINDINGS: There is bilateral patchy linear infiltrate and atelectasis in the lower lobes. There is also some ri ght middle lobe linear infiltrate and atelectasis. There is small area of atelectasis in the lingula left upper lobe. I see no suspicious pulmonary mass. There is no mediastinal adenopathy. There are bilateral multiple bronchial lymph nodes on the left si de more than the right that measure up to 1 cm. Thoracic aorta is intact. There is no aneurysm or dis section. The ascending aorta measures 3.3 cm. There are no hilar masses. There is normal contrast opacification of the pulmonary arteries. There are no filling defects. There is hypertrophic spurring in the thoracic spine. I see no bony destructive process. IMPRESSION: NO EVIDENCE OF PULMONARY EMBOLISM. BILATERAL PATCHY PULMONARY LINEAR INFILTRATES AND ATELECTASIS. THE RE IS A CHANGING PATTERN OF ATELECTASIS AND INFILTRATE COMPARED TO OLD EXAM. Left bronchial adenopathy unchanged.
--- NOTE | 2019-03-18 22:49 | CT ---
EXAMINATION TYPE: CT abdomen pelvis w con DATE OF EXAM: 03/18/2019 COMPARISON: 03/13/2019 HISTORY: Lithotripsy 2 days ago. Left sided pain. YURIDIA. CT DLP: 1544.8 mGycm Automated exposure control for dose reduction was used. TECHNIQUE: Helical acquisition of images was performed from the lung bases through the pelvis. CONTRAST: Performed without Oral Contrast and with IV Contrast, patient injected with mL of Isovue 370. FINDINGS: There is some patchy atelectasis at the lung bases. There is no pleural effusion. Liver spleen pancre as appear normal. Bile ducts are not dilated. There are clips at the gastroesophageal junction. Stoma ch appears intact. There is no adrenal mass. There are air bubbles in the left renal collecting system. There is Side perinephric fluid. Fluid measures up to 1 cm in thickness. There is delayed contrast appearance in the left kidney compared to the right. There is 2 cm right renal cyst. There is small amount of ai r in the proximal left ureter. There is tiny air bubble in the urinary bladder. There is no inguinal hernia. There is no free fluid in the pelvis. There is no evidence of a bowel obstruction. There is small amount of air in the left perinephric spa ce. There is linear density in the left posterior soft tissues consistent with previous nephrostomy t ube. There is 1 cm anterior subluxation of L4 in relation L5. There is no compression fracture. There is m oderate narrowing of disc spaces from L3 to S1. The bony pelvis appears intact. The appendix appears normal. IMPRESSION: THERE IS BEEN REMOVAL OF THE URETERAL STENT AND LEFT-SIDED NEPHROSTOMY TUBE COMPARED TO RECENT EXAM. NO RENAL OR URETERAL CALCULUS SEEN. Postsurgical changes. Slight left side decreased renal function b ut no definite obstruction. There is left side perinephric fluid that is probably perinephric hematom a. Urinoma not entirely excluded. There is bilateral lower lobe pulmonary infiltrates and atelectasis that appear improved compared to recent CT scan.
[2019-03-18 23:17] VITALS: BP 124/65; PULSE 74; TEMP 100.8
[2019-03-18 23:51] LABS: Appearance,Urine Clear (Clear); Bacteria,Urine Rare /hpf; Bilirubin,Urine Negative (Negative); Blood,Urine Large (Negative); Color,Urine Yellow; Glucose,Urine (UA) Negative (Negative); Ketones,Urine Negative (Negative); Leukocyte Esterase,Urine Small (Negative); Mucus,Urine Rare /hpf; Nitrite,Urine Negative (Negative); Protein,Urine Trace (Negative); RBC,Urine >182 /hpf (0-5); Specific Gravity,Urine 1.016 (1.001-1.035); Squamous Epithelial Cell,Urine 2 /hpf (0-4); Urobilinogen,Urine <2.0 mg/dL (<2.0)
== END 2019-03-19 00:04 | disposition home or self-care (01) ==
LOC: EC 19:42
DX: G89.4 Chronic pain syndrome (principal); G89.18 Other acute postprocedural pain; R10.84 Generalized abdominal pain; R11.0 Nausea; E78.5 Hyperlipidemia, unspecified; F41.9 Anxiety disorder, unspecified; F32.9 Major depressive disorder, single episode, unspecified; Z79.02 Long term (current) use of antithrombotics/antiplatelets; Z79.899 Other long term (current) drug therapy; Z91.041 Radiographic dye allergy status; Z91.02 Food additives allergy status; Z88.6 Allergy status to analgesic agent; Z88.8 Allergy status to other drugs, medicaments and biological substances; Z88.5 Allergy status to narcotic agent; Z91.09 Other allergy status, other than to drugs and biological substances; Z95.5 Presence of coronary angioplasty implant and graft; Z90.49 Acquired absence of other specified parts of digestive tract
CPT/HCPCS: 36415; 93005; 85379; 80053; 83735; 84100; 84484; 85025; 81001; 87086; 87077; 87186; 71275; 74177; 99285; 96374; 96375 ×2; 96361 ×3; J1200; J2930; Q9967

== ENCOUNTER → 2019-08-02 | Outpatient (CLI) | payer BC ==
--- NOTE | 2019-08-02 07:50 | MR ---
EXAMINATION TYPE: MR knee LT wo con DATE OF EXAM: 08/02/2019 COMPARISON: NONE HISTORY: Pain in left knee per order. Inner knee pain with swelling for 2 months per patient. TECHNIQUE: Multiplanar, multisequence images of the knee is performed without IV contrast. FINDINGS: MEDIAL MENISCUS: Anterior and posterior horns are intact without tear. LATERAL MENISCUS: There is thickened oblique increased signal posterior horn extends to inferior ishaan cular surface sagittal image 22. Some faint linear signal anterior horn seen does not definitively ex tend to articular surface. Coronal images show complex tear with suspected detached fragment extendin g inferiorly seen best coronal image 17. CRUCIATE LIGAMENTS: The anterior and posterior cruciate ligaments are intact and unremarkable. COLLATERAL LIGAMENTS: The medial collateral ligament and lateral collateral ligament complex are inta ct. Fluid signal surrounds the deeper fibers. EXTENSOR MECHANISM: Visualized quadriceps and patellar tendons are intact. EFFUSION: No significant suprapatellar joint effusion. POPLITEAL CYST: Tiny popliteal/garza cyst. TRICOMPARTMENT SPACES: Mild to moderate tricompartment degenerative changes with mild tricompartment spurring. Findings most prominent patellofemoral compartment. CARTILAGE: Some chondromalacia patella with some fissuring of articular cartilage along posterior pat ellar pole. No full-thickness cartilaginous loss. BONE MARROW SIGNAL: No focal abnormal marrow signal is appreciated. OTHER: No additional significant abnormality is appreciated. IMPRESSION: 1. Complex full-thickness tear medial meniscus most prominent through the posterior horn and root, co dianne images show some medial extrusion with curvilinear low signal distinct from the MCL suspicious for displaced meniscal fragment. There is associated mild MCL sprain to the deeper fibers. 2. Mild to moderate tricompartment degenerative changes greatest at the patellofemoral compartment as detailed above.
== END | disposition home or self-care (01) ==
LOC: RADMRIMAIN 07:01
PROVIDERS: ATTEND Nurse Practitioner Family
DX: M17.12 Unilateral primary osteoarthritis, left knee (principal); S83.232A Complex tear of medial meniscus, current injury, left knee, initial encounter; S83.412A Sprain of medial collateral ligament of left knee, initial encounter

== ENCOUNTER → 2019-08-13 | Outpatient (CLI) | payer BC ==
[2019-08-13 08:21] LABS: Basophils % (A) 0 %; Eosinophils # (A) 0.5 k/uL (0-0.7); Eosinophils % (A) 6 %; HCT 39.5 % (34.0-46.0); HGB 13.2 gm/dL (11.4-16.0); Lymphocytes # (A) 2.2 k/uL (1.0-4.8); Lymphocytes % (A) 27 %; MCH 31.4 pg (25.0-35.0); MCHC 33.4 g/dL (31.0-37.0); Mean Platelet Volume 7.4; Monocytes # (A) 0.5 k/uL (0-1.0); Monocytes % (A) 6 %; Neutrophils # (A) 4.8 k/uL (1.3-7.7); Neutrophils % (A) 59 %; Platelet Count 245 k/uL (150-450); RDW 12.8 % (11.5-15.5)
[2019-08-13 08:32] LABS: Appearance,Urine Cloudy (Clear); Bacteria,Urine Many /hpf; Bilirubin,Urine Negative (Negative); Blood,Urine Small (Negative); Color,Urine Yellow; Glucose,Urine (UA) Negative (Negative); Hyaline Casts,Urine 1 /lpf (0-2); Ketones,Urine Negative (Negative); Leukocyte Esterase,Urine Large (Negative); Mucus,Urine Occasional /hpf; Nitrite,Urine Positive (Negative); PH, Urine 5.5 (5.0-8.0); Protein,Urine Trace (Negative); RBC,Urine 4 /hpf (0-5); Specific Gravity,Urine 1.021 (1.001-1.035); Squamous Epithelial Cell,Urine 4 /hpf (0-4); Urobilinogen,Urine <2.0 mg/dL (<2.0); WBC,Urine 88 /hpf (0-5)
[2019-08-13 12:10] LABS: African American GFR (CKD) 104.6 (60.0-200.0); Albumin 4.4 g/dL (3.80-4.90); Albumin/Globulin Ratio 2.1 (1.60-3.17); Anion Gap 9.8 mmol/L (4.00-12.00); BUN/Creat Ratio 18.57 Ratio (12.00-20.00); Calcium 9.1 mg/dL (8.7-10.3); Carbon Dioxide 26.2 mmol/L (21.6-31.8); Chol/HDL Ratio 2.45; Globulin 2.1 g/dL (1.6-3.3); LDL Cholesterol,Calculated 56.6 mg/dL (0.0-131.0); Non-African American GFR(CKD) 90.3 (60.0-200.0); Potassium 4.3 mmol/L (3.5-5.5); Total Bilirubin 0.5 mg/dL (0.3-1.2); Total Protein 6.5 g/dL (6.2-8.2); VLDL Calculation 30.4 mg/dL (5.00-40.00)
[2019-08-13 14:18] LABS: Hemoglobin A1C 5.6 % (4.0-6.0)
== END ==
LOC: LABWHC1 07:27
PROVIDERS: ATTEND Family Medicine
DX: N10 Acute pyelonephritis (principal); N20.0 Calculus of kidney; E78.5 Hyperlipidemia, unspecified; I25.10 Atherosclerotic heart disease of native coronary artery without angina pectoris
CPT/HCPCS: 36415; 80053; 80061; 81001; 83036; 84443; 84550; 85025

== ENCOUNTER → 2020-04-06 | Outpatient (CLI) | payer BC ==
[2020-04-06 14:33] LABS: Basophils % (A) 1 %; Eosinophils # (A) 0.2 k/uL (0-0.7); Eosinophils % (A) 2 %; HCT 42.2 % (34.0-46.0); HGB 13.7 gm/dL (11.4-16.0); Lymphocytes # (A) 2.1 k/uL (1.0-4.8); Lymphocytes % (A) 28 %; MCH 31.2 pg (25.0-35.0); MCHC 32.4 g/dL (31.0-37.0); Mean Platelet Volume 7.2; Monocytes # (A) 0.4 k/uL (0-1.0); Monocytes % (A) 5 %; Neutrophils # (A) 4.8 k/uL (1.3-7.7); Neutrophils % (A) 63 %; Platelet Count 215 k/uL (150-450); WBC 7.6 k/uL (3.8-10.6)
[2020-04-06 16:17] LABS: Appearance,Urine Cloudy (Clear); Bacteria,Urine Many /hpf; Bilirubin,Urine Negative (Negative); Blood,Urine Negative (Negative); Color,Urine Yellow; Glucose,Urine (UA) Negative (Negative); Hyaline Casts,Urine 5 /lpf (0-2); Ketones,Urine Negative (Negative); Leukocyte Esterase,Urine Large (Negative); Mucus,Urine Few /hpf; Nitrite,Urine Positive (Negative); Protein,Urine Trace (Negative); RBC,Urine 15 /hpf (0-5); Squamous Epithelial Cell,Urine 2 /hpf (0-4); Urobilinogen,Urine <2.0 mg/dL (<2.0); WBC,Urine 120 /hpf (0-5)
[2020-04-06 19:50] LABS: African American GFR (CKD) 88.4 (60.0-200.0); Albumin 4.4 g/dL (3.80-4.90); Albumin/Globulin Ratio 1.91 (1.60-3.17); Anion Gap 9.7 mmol/L (4.00-12.00); BUN/Creat Ratio 18.75 Ratio (12.00-20.00); Calcium 9.6 mg/dL (8.7-10.3); Carbon Dioxide 25.3 mmol/L (21.6-31.8); Chol/HDL Ratio 2.85; Globulin 2.3 g/dL (1.6-3.3); LDL Cholesterol,Calculated 67.2 mg/dL (0.0-131.0); Magnesium 2.1 mg/dL (1.5-2.4); Non-African American GFR(CKD) 76.3 (60.0-200.0); Potassium 4.5 mmol/L (3.5-5.5); Total Bilirubin 0.5 mg/dL (0.2-1.2); Total Protein 6.7 g/dL (6.2-8.2); Uric Acid 7.2 mg/dL (2.9-7.7); VLDL Calculation 28.8 mg/dL (5.00-40.00)
[2020-04-06 22:26] LABS: Hemoglobin A1C 5.2 % (4.0-6.0)
== END | disposition home or self-care (01) ==
LOC: LABWHC1 13:01
PROVIDERS: ATTEND Family Medicine
DX: M81.0 Age-related osteoporosis without current pathological fracture (principal); M23.91 Unspecified internal derangement of right knee; E55.9 Vitamin D deficiency, unspecified; E53.8 Deficiency of other specified B group vitamins; E78.5 Hyperlipidemia, unspecified; R73.02 Impaired glucose tolerance (oral)
CPT/HCPCS: 36415; 80053; 80061; 81001; 82306; 82550; 82607; 83036; 83735; 84443; 84550; 85025; 87077; 87086; 87186

== ENCOUNTER → 2020-07-06 | Outpatient (CLI) | payer BC ==
--- NOTE | 2020-07-07 11:31 | BD ---
EXAMINATION TYPE: Axial Bone Density DATE OF EXAM: 07/06/2020 COMPARISON: 10/25/2016 CLINICAL HISTORY: Height: 66.5 IN Weight: 226 LBS FRAX RISK QUESTIONS: History of Fracture in Adulthood: RT HUMERUS AGE 62 RISK FACTORS HISTORY OF: Family History of Osteoporosis: MOTHER Active: YES Postmenopausal woman: AGE 47 MEDICATIONS: Additional Medications: VIT D3, B12, FIBER PILL,DICLOFENAC SODIUM, SIMVASTATIN, SERTRALINE, ATENOLOL, PLAVIX, TIZANIDINE, MONTELUKAST, IRON, AMITRIPTYLINE, EXAM MEASUREMENTS: Bone mineral densitometry was performed using the [employer] System. Bone mineral density as measured about the Lumbar spine is: ----- L1-L4(G/cm2): 1.394 T Score Values are as follows: ----- L2: 0.7 ----- L3: 0.6 ----- L4: 4.2 ----- L1-L4: 1.8 Bone mineral density NO PREVIOUS L-SPINE Bone mineral density about the R hip (g/cm2): 0.821 Bone mineral density about the L hip (g/cm2): 0.842 T Score values are as follows: -----R Neck: -1.6 -----L Neck: -1.4 -----R Total: -1.4 -----L Total: -1.1 Bone mineral density has: Decreased -5.3% since study of: 10/25/2016 IMPRESSION: Osteopenia NOTE: T-SCORE=SD OF THE YOUNG ADULT MEAN.
--- NOTE | 2020-07-07 13:50 | MM ---
Reason for exam: screening (asymptomatic). Last mammogram was performed 2 years and 5 months ago. History: Patient is postmenopausal and is nulliparous. Took estrogen for 5 years. Physical Findings: A clinical breast exam by your physician is recommended on an annual basis and results should be correlated with mammographic findings. MG Screening Mammo w CAD Bilateral CC and MLO view(s) were taken. Prior study comparison: January 30, 2018, bilateral MG screening mammo w CAD. October 25, 2016, bilateral MG screening mammo w CAD. There are scattered fibroglandular densities. No significant changes when compared with prior studies. ASSESSMENT: Benign, BI-RAD 2 RECOMMENDATION: Routine screening mammogram of both breasts in 1 year.
== END | disposition home or self-care (01) ==
LOC: RADMAMWWP 15:00
PROVIDERS: ATTEND Family Medicine
DX: Z12.31 Encounter for screening mammogram for malignant neoplasm of breast (principal); M85.80 Other specified disorders of bone density and structure, unspecified site; Z78.0 Asymptomatic menopausal state
CPT/HCPCS: 77067; 77080

== ENCOUNTER → 2020-10-13 | Outpatient (CLI) | payer BC ==
[2020-10-13 19:03] LABS: Basophils # (A) 0.03 X 10*3/uL (0.00-0.10); Basophils % (A) 0.4 %; Eosinophils # (A) 0.29 X 10*3/uL (0.04-0.35); Eosinophils % (A) 3.6 %; HCT 39.1 % (37.2-46.3); HGB 12.8 g/dL (12.0-15.0); Lymphocytes # (A) 2.15 X 10*3/uL (0.90-5.00); Lymphocytes % (A) 26.6 %; MCH 31.6 pg (27.0-32.0); MCHC 32.7 g/dL (32.0-37.0); MCV 96.5 fL (80.0-97.0); Mean Platelet Volume 10.3 fL (9.5-12.2); Monocytes # (A) 0.65 X 10*3/uL (0.20-1.00); Neutrophils # (A) 4.89 X 10*3/uL (1.80-7.70); Neutrophils % (A) 60.5 %; Platelet Count 214 X 10*3/uL (140-440); RBC 4.05 X 10*6/uL (4.10-5.20); RDW 12.1 % (11.5-14.5); WBC 8.08 X 10*3/uL (4.50-10.00)
[2020-10-13 21:38] LABS: Hemoglobin A1C 5.2 % (4.0-6.0)
[2020-10-14 00:32] LABS: African American GFR (CKD) 88.4 (60.0-200.0); Albumin 4.4 g/dL (3.80-4.90); Albumin/Globulin Ratio 2.1 (1.60-3.17); BUN/Creat Ratio 12.5 Ratio (12.00-20.00); Calcium 8.9 mg/dL (8.7-10.3); Chol/HDL Ratio 2.92; Globulin 2.1 g/dL (1.6-3.3); LDL Cholesterol,Calculated 63.8 mg/dL (0.0-131.0); Non-African American GFR(CKD) 76.3 (60.0-200.0); Potassium 4.3 mmol/L (3.5-5.5); Total Bilirubin 0.5 mg/dL (0.3-1.2); Total Protein 6.5 g/dL (6.2-8.2); VLDL Calculation 32.2 mg/dL (5.00-40.00)
[2020-10-14 00:40] LABS: T4, Free (Free Thyroxine) 1.1 ng/dL (0.80-1.80)
== END | disposition home or self-care (01) ==
LOC: LABWHC1 13:36
PROVIDERS: ATTEND Family Medicine
DX: Z00.00 Encounter for general adult medical examination without abnormal findings (principal); E78.5 Hyperlipidemia, unspecified; E55.9 Vitamin D deficiency, unspecified; N39.0 Urinary tract infection, site not specified; R73.03 Prediabetes
CPT/HCPCS: 36415; 80053; 80061; 82306; 83036; 84439; 84443; 85025

== ENCOUNTER → 2022-04-05 | Outpatient (CLI) | payer BC ==
--- NOTE | 2022-04-05 10:52 | MM ---
Reason for Exam: Screening (asymptomatic). Last mammogram was performed 1 year(s) and 9 month(s) ago. Patient History: Menarche at age 14. Patient has no children. Postmenopausal. Estrogen for 5 years until age 61. Risk Values: Kenna 5 year model risk: 1.9%. NCI Lifetime model risk: 5.9%. Prior Study Comparison: 10/25/2016 Bilateral Screening Mammogram, [facility]. 01/30/2018 Bilateral Screening Mammogram, [facility]. 07/06/2020 Bilateral Screening Mammogram, [facility]. Tissue Density: There are scattered fibroglandular densities. Findings: Analyzed By CAD. Scattered tiny benign-appearing round calcifications throughout the bilateral breasts are redemonstrated. There is no suspicious new group of microcalcifications or new suspicious mass in either breast. Overall Assessment: Benign, BI-RAD 2 Management: Screening Mammogram of both breasts in 1 year. A clinical breast exam by your physician is recommended on an annual basis and results should be correlated with mammographic findings. Electronically signed and approved by: Vin Cuellar M.D.
[2022-04-05 14:39] LABS: Basophils # (A) 0.04 X 10*3/uL (0.00-0.10); Basophils % (A) 0.3 %; Eosinophils # (A) 0.04 X 10*3/uL (0.04-0.35); Eosinophils % (A) 0.3 %; HCT 40.7 % (37.2-46.3); Immature Grans, Automated 1.2 %; Lymphocytes # (A) 1.44 X 10*3/uL (0.90-5.00); Lymphocytes % (A) 10.1 %; MCH 30.7 pg (27.0-32.0); MCHC 31.9 g/dL (32.0-37.0); Mean Platelet Volume 10.1 fL (9.5-12.2); Monocytes # (A) 0.74 X 10*3/uL (0.20-1.00); Monocytes % (A) 5.2 %; NRBC Per 100 WBC 0 /100 WBCS (0.0-0.0); Neutrophils # (A) 11.79 X 10*3/uL (1.80-7.70); Neutrophils % (A) 82.9 %; Platelet Count 334 X 10*3/uL (140-440); RBC 4.24 X 10*6/uL (4.10-5.20); RDW 13.1 % (11.5-14.5); WBC 14.22 X 10*3/uL (4.50-10.00)
[2022-04-05 18:36] LABS: ALT 23 U/L (8-44); AST 23 U/L (13-35); African American GFR (CKD) 103.4 (60.0-200.0); Albumin 4.2 g/dL (3.8-4.9); Alkaline Phosphatase 100 U/L (41-126); BUN/Creat Ratio 19.56 Ratio (12.00-20.00); Blood Urea Nitrogen 13.3 mg/dL (9.0-27.0); Calcium 9.2 mg/dL (8.7-10.3); Carbon Dioxide 25.3 mmol/L (20.0-27.5); Chloride 104 mmol/L (96-109); Chol/HDL Ratio 2.33 Ratio; Creatine Kinase 32 U/L (26-186); Globulin 2.3 g/dL (1.6-3.3); Glucose 111 mg/dL (70-110); LDL Cholesterol,Calculated 52.2 mg/dL (0.0-131.0); Non-African American GFR(CKD) 89.3 (60.0-200.0); Sodium 140 mmol/L (135-145); Total Protein 6.6 g/dL (6.2-8.2)
== END | disposition home or self-care (01) ==
LOC: RADMAMWWP 10:27
PROVIDERS: ATTEND Family Medicine
DX: Z12.31 Encounter for screening mammogram for malignant neoplasm of breast (principal); E78.5 Hyperlipidemia, unspecified; M23.8X2 Other internal derangements of left knee; R73.01 Impaired fasting glucose; Z78.0 Asymptomatic menopausal state
CPT/HCPCS: 77067; 80053; 80061; 82550; 83036; 84443; 84550; 85025

== ENCOUNTER → 2022-06-20 | Outpatient (CLI) | payer BC ==
--- NOTE | 2022-06-20 14:18 | MR ---
EXAMINATION TYPE: MR angio head wo con DATE OF EXAM: 06/20/2022 10:58 AM CLINICAL INDICATION:Female, 71 years old with history of I67.1 CEREBRAL ANEURYSM, NONRUPTURED; COMPARISON: 08/21/2018 and 05/25/2017 Technical: 3-D [id number] Axial with MIP reconstruction were created on a separate workstation. IV Contrast: None Findings: Vertebral arteries: The vertebral arteries are patent. The right vertebral artery is dominant. Basilar artery: The basilar artery is intact. The basilar artery demonstrates 5 vessels originating f rom superior "bifurcation" which is a anatomic variant including both posterior cerebral arteries and superior cerebellar arteries. This is unchanged in dimension measuring up to 6 x 4 mm dating back to 2017. Internal Carotid arteries: The cervical, petrous, cavernous and supraclinoid segments are normal. CARLOS: Fenestration of the right A1 segment similar prior's. ACOM: Present without evidence of aneurysm. MCA: Patent with no evidence of aneurysm. CLIENT INTEGRATION MANAGER: origin of the right posterior cerebral artery. There is similar tortuosity to the origin o f the right origin. Pain bilateral posterior cerebral arteries. PCOM: Hypoplastic left. IMPRESSION: 1. 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 2. Unchanged tortuosity of the origin of the right posterior cerebral artery (normal variant or igin). 3. No new aneurysms or evidence of high-grade stenosis.
== END | disposition home or self-care (01) ==
LOC: RADMRIMAIN 10:33
PROVIDERS: ATTEND Family Medicine
DX: I67.1 Cerebral aneurysm, nonruptured (principal); I77.1 Stricture of artery
CPT/HCPCS: 70544

== ENCOUNTER → 2022-11-22 | Outpatient (CLI) | payer BC ==
[2022-11-22 19:17] LABS: Basophils # (A) 0.03 X 10*3/uL (0.00-0.10); Basophils % (A) 0.4 %; Eosinophils # (A) 0.19 X 10*3/uL (0.04-0.35); Eosinophils % (A) 2.2 %; HCT 40.7 % (37.2-46.3); HGB 13.3 d/dL (12.0-15.0); Lymphocytes # (A) 2.17 X 10*3/uL (0.90-5.00); Lymphocytes % (A) 25.7 %; MCH 31.1 pg (27.0-32.0); MCHC 32.7 d/dL (32.0-37.0); MCV 95.3 FL (80.0-97.0); Mean Platelet Volume 10.7 FL (9.5-12.2); Monocytes # (A) 0.68 X 10*3/uL (0.20-1.00); NRBC Per 100 WBC 0 X 10*3/uL (0.00-0.01); Neutrophils # (A) 5.28 X 10*3/uL (1.80-7.70); Neutrophils % (A) 62.5 %; Platelet Count 217 X 10*3/uL (140-440); RBC 4.27 X 10*6/uL (4.10-5.20); RDW 12.8 % (11.5-14.5); WBC 8.45 X 10*3/uL (4.50-10.00)
[2022-11-23 05:21] LABS: Chol/HDL Ratio 2.39 Ratio; LDL Cholesterol,Calculated 62.2 mg/dL (0.0-131.0)
[2022-11-23 05:22] LABS: ALT 18 U/L (8-44); AST 26 U/L (13-35); Albumin 4.5 d/dL (3.8-4.9); Albumin/Globulin Ratio 2.05 Ratio (1.60-3.17); Alkaline Phosphatase 86 U/L (41-126); BUN/Creat Ratio 17.62 Ratio (12.00-20.00); Blood Urea Nitrogen 14.1 mg/dL (9.0-27.0); Calcium 9.6 mg/dL (8.7-10.3); Carbon Dioxide 24.7 mmol/L (21.6-31.8); Chloride 106 mmol/L (96-109); Globulin 2.2 d/dL (1.6-3.3); Glucose 97 mg/dL (70-110); Potassium 4.7 mmol/L (3.5-5.5); Sodium 142 mmol/L (135-145); Total Bilirubin 0.4 mg/dL (0.3-1.2); Total Protein 6.7 d/dL (6.2-8.2)
== END | disposition home or self-care (01) ==
LOC: LABWHC1 08:47
PROVIDERS: ATTEND Internal Medicine Interventional Cardiology
DX: H81.311 Aural vertigo, right ear (principal); E78.5 Hyperlipidemia, unspecified; R10.30 Lower abdominal pain, unspecified; R73.01 Impaired fasting glucose; Z95.5 Presence of coronary angioplasty implant and graft
CPT/HCPCS: 36415; 80053; 80061; 83036; 84443; 85025

== ENCOUNTER → 2023-06-20 | Outpatient (CLI) | payer BC ==
--- NOTE | 2023-06-20 13:26 | MM ---
Reason for Exam: Screening (asymptomatic). Last mammogram was performed 1 year(s) and 2 month(s) ago. Patient History: Menarche at age 14. Patient has no children. Postmenopausal. Estrogen for 5 years until age 61. Risk Values: Kenna 5 year model risk: 1.9%. NCI Lifetime model risk: 5.6%. Prior Study Comparison: 01/30/2018 Bilateral Screening Mammogram, [facility]. 07/06/2020 Bilateral Screening Mammogram, [facility]. 04/05/2022 Bilateral MG screening mammo w CAD, [facility]. Tissue Density: There are scattered fibroglandular densities. Findings: Analyzed By CAD. There is no suspicious group of microcalcifications or new suspicious mass. Overall Assessment: Negative, BI-RAD 1 Management: Screening Mammogram of both breasts in [address] [facility] will attempt to contact patient to return for supplemental views and ultrasound if indicated. Patient should continue monthly self-breast exams. A clinical breast exam by your physician is recommended on an annual basis. This exam should not preclude additional follow-up of suspicious palpable abnormalities. Note on Kenna scores and lifetime risk: 1. A Kenna score greater than 3% is considered moderate risk. If this is the case, consider specialist referral to assess eligibility for a risk reducing agent. 2. If overall lifetime risk for the development of breast cancer is 20% or higher, the patient may qualify for future screening with alternating mammogram and breast MRI. Electronically signed and approved by: Ernesto Kam DO
== END | disposition home or self-care (01) ==
LOC: RADMAMWWP 12:19
PROVIDERS: ATTEND Family Medicine
DX: Z12.31 Encounter for screening mammogram for malignant neoplasm of breast (principal); Z78.0 Asymptomatic menopausal state
CPT/HCPCS: 77067

== ENCOUNTER → 2023-08-01 | Outpatient (CLI) | payer BC ==
--- NOTE | 2023-08-01 19:13 | BD ---
EXAMINATION TYPE: Axial Bone Density DATE OF EXAM: 08/01/2023 CLINICAL HISTORY: 72 years old Female. ICD-10 CODE: M85.9 DISORDER OF BONE DENSITY AND STRUCTURE, UN SP Height: 66.5 Weight: 226 FRAX RISK QUESTIONS: History of Fracture in Adulthood: yes Secondary Osteoporosis: no Rheumatoid Arthritis: no RISK FACTORS HISTORY OF: Surgery to Spine/Hip(right/left)/Wrist (right/left): no MEDICATIONS: Thyroid Medications: no Osteoporosis Medications: no EXAM MEASUREMENTS: Bone mineral densitometry was performed using the [employer] System. Bone mineral density as measured about the Lumbar spine is: ----- L1-L4(G/cm2): 1.418 T Score Values are as follows: ----- L1: 0.7 ----- L2: 0.8 ----- L3: 1.3 ----- L4: 4.4 ----- L1-L4: 2.0 Z Score Values are as follows: ----- L1: 1.2 ----- L2: 1.3 ----- L3: 18 ----- L4: 4.9 ----- L1-L4: 2.5 Bone mineral density has: Increased 1.7% since study of: 07/06/2020 Bone mineral density about the R hip (g/cm2): 0.792 Bone mineral density about the L hip (g/cm2): 0.843 T Score values are as follows: -----R Neck: -1.9 -----L Neck: -1.6 -----R Total: -1.7 -----L Total: -1.3 Z Score values are as follows: -----R Neck: -1.0 -----L Neck: -0.6 -----R Total: -1.1 -----L Total: -0.7 Bone mineral density has: Decreased -3.8% since study of: 07/06/2020 FRAX%s: The graph provided illustrates a 16.8% chance for a major osteoporotic fx and a 3.0% chance f or the hips probability for fx in 10 years time. IMPRESSION: Osteopenia (T Score between -2.5 and -1). There is slightly increased risk of fracture and the patient may be considered for treatment. Re-Screen 2-5 years. NOTE: T-SCORE=SD OF THE YOUNG ADULT MEAN.
== END | disposition home or self-care (01) ==
LOC: RADBDWWP 14:18
PROVIDERS: ATTEND Family Medicine
DX: M85.89 Other specified disorders of bone density and structure, multiple sites (principal)
CPT/HCPCS: 77080

== ENCOUNTER → 2023-08-16 | Outpatient (CLI) | payer BC ==
[2023-08-16 16:54] LABS: Basophils # (A) 0.06 X 10*3/uL (0.00-0.10); Basophils % (A) 0.8 %; Eosinophils # (A) 0.27 X 10*3/uL (0.04-0.35); Eosinophils % (A) 3.6 %; HCT 38.3 % (37.2-46.3); HGB 12.6 g/dL (12.0-15.0); Lymphocytes # (A) 2.36 X 10*3/uL (0.90-5.00); Lymphocytes % (A) 31.4 %; MCHC 32.9 g/dL (32.0-37.0); MCV 94.1 FL (80.0-97.0); Mean Platelet Volume 10.5 FL (9.5-12.2); Monocytes # (A) 0.67 X 10*3/uL (0.20-1.00); Monocytes % (A) 8.9 %; NRBC Per 100 WBC 0 X 10*3/uL (0.00-0.01); Neutrophils # (A) 4.11 X 10*3/uL (1.80-7.70); Neutrophils % (A) 54.6 %; Platelet Count 209 X 10*3/uL (140-440); RBC 4.07 X 10*6/uL (4.10-5.20); RDW 12.6 % (11.5-14.5); WBC 7.52 X 10*3/uL (4.50-10.00)
[2023-08-16 17:27] LABS: ALT 29 U/L (8-44); AST 35 U/L (13-35); Albumin 4.2 g/dL (3.8-4.9); Albumin/Globulin Ratio 1.91 Ratio (1.60-3.17); Alkaline Phosphatase 86 U/L (41-126); Blood Urea Nitrogen 12.8 mg/dL (9.0-27.0); Calcium 9.5 mg/dL (8.7-10.3); Carbon Dioxide 25.1 mmol/L (21.6-31.8); Chloride 107 mmol/L (96-109); Chol/HDL Ratio 2.25 Ratio; Globulin 2.2 g/dL (1.6-3.3); Glucose 116 mg/dL (70-110); Potassium 4.5 mmol/L (3.5-5.5); Sodium 141 mmol/L (135-145); T4, Free (Free Thyroxine) 1.32 ng/dL (0.80-1.80); Total Bilirubin 0.3 mg/dL (0.3-1.2); Total Protein 6.4 g/dL (6.2-8.2)
== END | disposition home or self-care (01) ==
LOC: LABWHC1 08:44
PROVIDERS: ATTEND Family Medicine
DX: Z00.01 Encounter for general adult medical examination with abnormal findings (principal); I67.1 Cerebral aneurysm, nonruptured; F41.9 Anxiety disorder, unspecified; E78.5 Hyperlipidemia, unspecified; E53.8 Deficiency of other specified B group vitamins; E55.9 Vitamin D deficiency, unspecified; R73.01 Impaired fasting glucose
CPT/HCPCS: 36415; 80053; 80061; 82306; 82607; 83036; 84439; 84443; 85025

== ENCOUNTER → 2023-10-12 | Outpatient (CLI) | payer BC ==
--- NOTE | 2023-10-12 17:44 | FL ---
EXAMINATION TYPE: FL barium swallow DATE OF EXAM: 10/12/2023 CLINICAL INDICATION: 72 year-old female previous hiatal hernia repair with reflux for a couple years. R13.14 DYSPHAGIA, PHARYNGOESOPHAGEAL PHASE COMPARISON: None Total Fluoroscopy Time: 2 minutes 475.44 mGycm2 DAP 30 images obtained. FINDINGS: There is deep penetration with coating of the vocal folds. No cough reflex. There is normal hypophary ngeal anatomy. The thoracic portions has a normal course and caliber. There is mild to moderate esophageal dysmotili ty with mild tertiary peristaltic waves. Secondary stripping waves are blunted and there is residual contrast throughout the esophagus when the patient is prone/supine with delayed clearance. The mucosa is normal and no persistent filling defect is encountered. No recurrent hiatal hernia. Gastroesophageal reflux not seen during the course of the exam. IMPRESSION: 1. Deep laryngeal penetration with coating of the vocal folds. There was no cough reflex noted. No fr ank aspiration seen during the course of the exam. If clinically indicated, consider further evaluati on with speech pathology. 2. [id number] esophageal dysmotility. 3. No recurrent hiatal hernia or gastroesophageal reflux seen.
== END | disposition home or self-care (01) ==
LOC: RADUSWWP 10:30
PROVIDERS: ATTEND Family Medicine
DX: K22.4 Dyskinesia of esophagus (principal); R13.14 Dysphagia, pharyngoesophageal phase
CPT/HCPCS: 74220

== ENCOUNTER 2023-11-24 09:46 | Day surgery (SDC) | payer BC ==
[2023-11-24 10:24] VITALS: TEMP 97.8
[2023-11-24] MEDS: IV FLUID CONTINUATION 1,000 ML IV ONE (10:35)
[2023-11-24] MEDS: LACTATED RINGERS 1,000 ML IV SCH (10:36)
[2023-11-24] MEDS ORDERED: PROPOFOL 10 MG/ML 20 ML VIAL IV ONE (11:40)
[2023-11-24] MEDS ORDERED: LIDOCAINE 1% INJ 10MG/ML (20 ML MDV) ONE (11:40)
--- NOTE | 2023-11-24 11:52 | P.PCN ---
Date of Procedure: 11/24/23 Procedure(s) Performed: BRIEF HISTORY: Patient is a 72-year-old, pleasant, female scheduled for an upper endoscopy as a part evaluation of intermittent dysphagia to solids for the last 1 year duration. She had a barium swallow done recently that showed evidence of esophageal dysmotility but no esophageal stricture. PROCEDURE PERFORMED: Esophagogastroduodenoscopy with biopsy. PREOPERATIVE DIAGNOSIS: Intermittent dysphagia to solids of 1 year. IV sedation per anesthesia. PROCEDURE: After informed consent was obtained, the patient was brought into the endoscopy unit. IV sedation was administered by Anesthesia under continuous monitoring. Initially the Olympus GIF-140 video endoscope was inserted into the mouth. Esophagus intubated without any difficulty. It was gradually advanced into the stomach and duodenum and carefully examined. The bulb and the second part of the duodenum appeared normal. The scope at this time was withdrawn to the stomach, adequately insufflated with air, and upon careful examination, mucosa of the antrum, body gastritis and biopsies were done from this area. Mu cosa of the, cardia and the fundus appeared normal. The scope was then withdrawn into the esophagus. The GE junction was located at 39 cm from the incisors. The esophagus appeared normal. There were no erosions or ulcerations seen evidence of esophageal stricture. Proximal cervical esophagus was carefully examined and appeared normal. Biopsies were done from the midesophagus and the patient tole rated the procedure well. IMPRESSION: 1. Normal-appearing esophagus with no evidence of esophagitis or esophageal stricture. 2. Diffuse gastritis. RECOMMENDATIONS: The findings of this examination were discussed with the patient as well as her family. She was advised to follow-up with the biopsy results. Continue with soft foods and small bites.. Likely the dysphagia is related to presbyesophagus and hence advised to continue with diet modifications.
[2023-11-24 12:20] VITALS: BP 122/79; PULSE 67; RESP 18
== END 2023-11-24 12:43 | disposition home or self-care (01) ==
LOC: ORWHC2ENDO 09:46
PROVIDERS: ATTEND Internal Medicine Gastroenterology
DX: K29.50 Unspecified chronic gastritis without bleeding (principal); I25.10 Atherosclerotic heart disease of native coronary artery without angina pectoris; F41.9 Anxiety disorder, unspecified; F32.A Depression, unspecified; Z79.02 Long term (current) use of antithrombotics/antiplatelets; Z79.899 Other long term (current) drug therapy; Z91.041 Radiographic dye allergy status; Z88.6 Allergy status to analgesic agent; Z88.8 Allergy status to other drugs, medicaments and biological substances; Z95.5 Presence of coronary angioplasty implant and graft; Z90.49 Acquired absence of other specified parts of digestive tract; Z98.890 Other specified postprocedural states
CPT/HCPCS: 88305; 43239; J2001; J2704

== ENCOUNTER → 2024-03-14 | Outpatient (CLI) | payer BC ==
--- NOTE | 2024-03-14 16:07 | US ---
EXAMINATION TYPE: US venous doppler duplex LE RT DATE OF EXAM: 03/14/2024 3:51 PM COMPARISON: NONE CLINICAL INDICATION: Female, 73 years old with history of I80.9 PHLEBITITIS; RLE pain TECHNIQUE: The lower extremity deep venous system is examined utilizing real time linear array sonog melani with graded compression, color doppler sonography, and spectral doppler. SIDE PERFORMED: Right FINDINGS: VESSELS IMAGED: Common Femoral Vein Deep Femoral Vein Greater Saphenous Vein * Femoral Vein Popliteal Vein Small Saphenous Vein * Proximal Calf Veins (* superficial vessels) The deep venous system of the right lower extremity from the common femoral vein to the proximal calf veins is patent and compressible with augmentable flow with normal waveforms. IMPRESSION: No evidence of right lower extremity DVT from the common femoral vein to the proximal calf veins [facility], Workstation: [id number] 03/14/2024 4:05 PM
== END | disposition home or self-care (01) ==
LOC: RADUSWWP 15:25
PROVIDERS: ATTEND Orthopaedic Surgery
DX: I80.9 Phlebitis and thrombophlebitis of unspecified site (principal)

== ENCOUNTER → 2024-05-03 | Outpatient (CLI) | payer BC ==
[2024-05-03 18:16] LABS: Basophils # (A) 0.03 X 10*3/uL (0.00-0.10); Basophils % (A) 0.4 %; Eosinophils % (A) 2.4 %; HCT 41.7 % (37.2-46.3); HGB 13.7 g/dL (12.0-15.0); Lymphocytes # (A) 2.21 X 10*3/uL (0.90-5.00); MCH 31.1 pg (27.0-32.0); MCHC 32.9 g/dL (32.0-37.0); MCV 94.6 FL (80.0-97.0); Mean Platelet Volume 10.6 FL (9.5-12.2); Monocytes # (A) 0.71 X 10*3/uL (0.20-1.00); Monocytes % (A) 8.4 %; NRBC Per 100 WBC 0 X 10*3/uL (0.00-0.01); Neutrophils # (A) 5.31 X 10*3/uL (1.80-7.70); Neutrophils % (A) 62.4 %; Platelet Count 210 X 10*3/uL (140-440); RBC 4.41 X 10*6/uL (4.10-5.20); RDW 12.2 % (11.5-14.5); WBC 8.49 X 10*3/uL (4.50-10.00)
[2024-05-03 18:35] LABS: ALT 18 U/L (8-44); AST 25 U/L (13-35); Albumin 4.2 g/dL (3.8-4.9); Albumin/Globulin Ratio 1.91 Ratio (1.60-3.17); Alkaline Phosphatase 85 U/L (41-126); BUN/Creat Ratio 19.14 Ratio (12.00-20.00); Blood Urea Nitrogen 13.4 mg/dL (9.0-27.0); Calcium 9.2 mg/dL (8.7-10.3); Carbon Dioxide 24.4 mmol/L (21.6-31.8); Chloride 108 mmol/L (96-109); Chol/HDL Ratio 2.26 Ratio; Globulin 2.2 g/dL (1.6-3.3); Glucose 101 mg/dL (70-110); LDL Cholesterol,Calculated 59.3 mg/dL (0.0-131.0); Potassium 4.3 mmol/L (3.5-5.5); Sodium 144 mmol/L (135-145); Total Bilirubin 0.4 mg/dL (0.3-1.2); Total Protein 6.4 g/dL (6.2-8.2)
== END | disposition home or self-care (01) ==
LOC: LABWHC1 12:25
PROVIDERS: ATTEND Family Medicine
DX: E78.5 Hyperlipidemia, unspecified (principal); R13.14 Dysphagia, pharyngoesophageal phase; R73.01 Impaired fasting glucose; F01.50 Vascular dementia, unspecified severity, without behavioral disturbance, psychotic disturbance, mood disturbance, and anxiety
CPT/HCPCS: 36415; 80053; 80061; 83036; 84443; 85025

== ENCOUNTER → 2024-09-13 | Day surgery (SDC) | payer BC ==
[2024-09-12 10:46] VITALS: BMI 34.4
[~2024-09-13] MED LIST changes: -AMPICILLIN 1,000 MG in SODIUM CHLORIDE 0.9% 50 ML IVPB ONE; -DEXAMETHASONE SOD PHOSPHATE 10 MG/ML 1 ML VIAL IV ONE; -GENTAMICIN 120 MG in SODIUM CHLORIDE 0.9% 100 ML IVPB ONE; +LACTATED RINGERS 1,000 ML IV SCH; -LIDOCAINE 1% 20 ML VIAL (10MG/ML) FOR IV START INTRADERMA PRN; -ONDANSETRON 4 MG/2 ML VIAL IVP PRN; +PROPOFOL 10 MG/ML 20 ML VIAL IV ONE
[2024-09-13 11:32] VITALS: TEMP 97.1
[2024-09-13] MEDS: IV FLUID CONTINUATION 1,000 ML IV ONE (11:41)
--- NOTE | 2024-09-13 12:22 | P.PCN ---
Date of Procedure: 09/13/24 Procedure(s) Performed: BRIEF HISTORY: Patient is a 73-year-old pleasant white female scheduled for an elective colonoscopy as a part of evaluation of chronic diarrhea for several years duration. She usually has 7-8 loose watery bowel movements daily but no blood or mucus in the stool. PROCEDURE PERFORMED: Colonoscopy with random biopsies. PREOPERATIVE DIAGNOSIS: Chronic diarrhea. IV sedation per Anesthesia. PROCEDURE: After informed consent was obtained, the patient, was brought into the endoscopy unit. IV sedation was administered by Anesthesia under continuous monitoring. Digital rectal examination was normal. Initially the Olympus CF-160 flexible video colonoscope was then inserted in the rectum, gradually advanced into the cecum without any difficulty. Careful examination was performed as the scope was gradually being withdrawn. Ileocecal valve and the appendiceal orifice were visualized and appeared normal. Prep was excellent. Mucosa of the cecum, appeared normal. The ascending colon there was a 1 cm polyp removed by snare polypectomy.In the hepatic flexure there was a 1 cm and 2 cm polyp removed by snare polypectomy. Rest of the ascending colon, transverse colon, descending colon, sigmoid colon, and rectum appeared normal. In the rectum there was a 5 mm polyp removed by snare polypectomy. Random biopsies were done from the ascending and descending colon rule out microscopic/collagenous colitis retroflexion was performed in the rectum and no lesions were seen. The patient tolerated the procedure well. IMPRESSION: 1 cm cecal polyp status post polypectomy 1 cm and 2 cm hepatic flexure polyp status post polypectomy 5 mm rectal polyp status post polypectomy. RECOMMENDATIONS: Findings of this examination were discussed with the patient as well as her family. She was advised to follow-up with the biopsy results. If the biopsy reveals adenoma she can have repeat colonoscopy in 3 years.
[2024-09-13 12:46] VITALS: BP 113/62; PULSE 61; RESP 16
== END ==
LOC: ORWHC2ENDO 10:59
PROVIDERS: ATTEND Internal Medicine Gastroenterology
DX: K58.0 Irritable bowel syndrome with diarrhea (principal); D12.2 Benign neoplasm of ascending colon; D12.3 Benign neoplasm of transverse colon; D12.8 Benign neoplasm of rectum
CPT/HCPCS: 45380; 45385; J2704; 88305

== ENCOUNTER → 2024-12-09 | Outpatient (CLI) | payer BC ==
--- NOTE | 2024-12-09 09:36 | MM ---
Reason for Exam: Screening (asymptomatic). Last mammogram was performed 1 year(s) and 6 month(s) ago. Patient History: Menarche at age 14. Patient has no children. Postmenopausal. Estrogen for 5 years until age 61. Risk Values: Kenna 5 year model risk: 1.9%. NCI Lifetime model risk: 5.4%. Prior Study Comparison: 07/06/2020 Bilateral Screening Mammogram, [facility]. 04/05/2022 Bilateral MG screening mammo w CAD, [facility]. 06/20/2023 Bilateral MG screening mammo w CAD, [facility]. Tissue Density: There are scattered areas of fibroglandular density. Findings: Analyzed By CAD. There are tiny benign appearing round calcifications scattered throughout the bilateral breast redemonstrated. Benign-appearing bilateral axillary lymph nodes are again seen. There is no suspicious group of microcalcifications or new suspicious mass in either breast. Overall Assessment: Benign, BI-RAD 2 Management: Screening Mammogram of both breasts in 1 year. . Patient should continue monthly self-breast exams. A clinical breast exam by your physician is recommended on an annual basis. This exam should not preclude additional follow-up of suspicious palpable abnormalities. Note on Kenna scores and lifetime risk: 1. A Kenna score greater than 3% is considered moderate risk. If this is the case, consider specialist referral to assess eligibility for a risk reducing agent. 2. If overall lifetime risk for the development of breast cancer is 20% or higher, the patient may qualify for future screening with alternating mammogram and breast MRI. [facility], , 12/09/2024 9:33 AM. Electronically signed and approved by: Vin Cuellar M.D.
== END | disposition home or self-care (01) ==
LOC: RADMAMWWP 08:50
PROVIDERS: ATTEND Family Medicine
DX: Z12.31 Encounter for screening mammogram for malignant neoplasm of breast (principal); R92.323 Mammographic fibroglandular density, bilateral breasts; Z78.0 Asymptomatic menopausal state
CPT/HCPCS: 77063; 77067